=== PATIENT | female | born 1940 | race Caucasian/White ===

== ENCOUNTER 2016-05-20 06:03 | Inpatient (IN) | payer MEDICARE ==
[~2016-05-20 06:03] MED LIST: ceFAZolin SODIUM 1 GM VIAL IV PRN
[2016-05-20] MEDS: RINGERS SOLUTION,LACTATED 1,000 ML IV PRN ×2 (07:06→07:40)
[2016-05-20] MEDS ORDERED: RINGERS SOLUTION,LACTATED 1,000 ML IV ONE ×2 (08:35→09:50)
[2016-05-20] MEDS: ROPIVACAINE HCL/PF 100 MG, EPINEPHrine 0.2 MG, KETOROLAC TROMETHAMINE 30 MG in NORMAL S... IJ PRN ×2 (08:41→09:20)
[2016-05-20] MEDS: TRANEXAMIC ACID 1,000 MG in NORMAL SALINE 100 ML IV PRN ×2 (08:41→09:15)
[2016-05-20] MEDS ORDERED: ACETAMINOPHEN 500 MG TABLET PO PRN (10:18)
[2016-05-20] MEDS ORDERED: MAGNESIUM HYDROXIDE 30 ML UDC PO PRN (10:18)
[2016-05-20] MEDS ORDERED: HYDROmorphone HCL 1 MG/ML DISP.SYRIN IV PRN (10:18)
[2016-05-20] MEDS ORDERED: RINGERS SOLUTION,LACTATED 1,000 ML IV PRN (10:18)
[2016-05-20] MEDS ORDERED: PROMETHAZINE HCL 5 MG in DEXTROSE 5 % IN WATER 50 ML IV PRN ×2 (10:18)
[2016-05-20] MEDS ORDERED: MAG HYDROX/ALUMINUM HYD/SIMETH 30 ML UDC PO PRN (10:18)
[2016-05-20] MEDS ORDERED: diphenhydrAMINE HCL 50 MG/ML VIAL IV PRN (10:18)
[2016-05-20] MEDS ORDERED: ZOLPIDEM TARTRATE 5 MG TABLET PO PRN (10:18)
--- NOTE | 2016-05-20 10:26 | OR ---
Operative Report - Dictated Report Narrative: Date: 05/20/2016 Preoperative diagnosis: Right Knee degenerative joint disease. Postoperative diagnosis: Right Knee degenerative joint disease. Procedure: Right Total knee arthroplasty (22 modifier due to morbid obesity, significant deformity requiring additional surgical time and assistance). Surgeon: Rajan Schofield M.D. Producer Arborist Manager: Efren Byrd PA-C Anesthesia: Spinal with regional block and local periarticular joint injection. Complications: None Specimens: Bone for disposal. Estimated blood loss: 100 mL Tourniquet time: 110 Minutes at 350 millimeters of mercury. Retained implants: Depuy Attune size 6 right lugged cemented posterior stabilized femoral component. Size 5 fixed-bearing cemented tibial platform. 6 by 16 millimeter posterior stabilized cross-linked tibial insert. 38 millimeter medialized patella button. Indications: Mrs. Alegria is a 75-year-old female who had noted varus knee arthrosis. This patient was followed in my clinic for period of time with significant complaints of right knee pain consistent with arthritic changes. They had failed conservative measures including, but not limited to, activity modification, passage of time, medications, and other conservative measures. Patient wished to proceed with surgical treatment. The risks, benefits, and alternatives were discussed in clinic. The risks of , blood clots, bleeding, infection, nerve/tendon blood vessel/ injury, malposition of components, intraoperative fracture, postoperative limited range of motion, persistent pain, failure of components, and need for additional procedures. Patient wished to proceed consent was obtained after answering all questions. Procedure: After marking the correct extremity on the floor, the patient was taken to the operating room. A timeout was performed. IV antibiotics consisting of Ancef were administered prior to the procedure. A regional followed by spinal anesthetic was induced by anesthesia on the operative table with all bony prominences well-padded. Contreras catheter was placed, and a bump was placed under the operative side buttock. SCDs and DIANNA hose were utilized on the nonoperative leg. A well-padded tourniquet was applied to the operative thigh. The operative leg was then pre-scrubbed with alcoho,l prepped, and draped in a standard sterile fashion. After exsanguinating the extremity with an Esmarch bandage, the tourniquet was inflated. After marking out the anterior knee for standard incision centered over the patella, the skin was incised and dissected down to the joint retinaculum. The joint retinaculum was marked out as well as the horizontal axis of the patella, and a standard medial parapatellar arthrotomy was then made. The most proximal aspect of the quadriceps tendon and the patella tendon insertion were protected from release. A partial synovectomy was performed as well as a resection of the infrapatellar fat pad. The distal femoral fat pad proximal to the trochlea was also resected using cautery. The soft tissues were elevated off the medial aspect of the proximal tibia using a Payton elevator ensuring that we did not transect the medial collateral ligament. Upon initial evaluation range of motion was approximately 0 degrees to 100 degrees of flexion. There were signs of advanced arthrosis in the medial, patellofemoral, and lateral joint spaces. There was notable collapse of the medial femoral condyle and significant anterior medial tibial plateau depression. There were large marginal osteophytes which were removed with a rongeur. The knee was hyperflexed and the patella was tucked laterally. Protecting the surrounding soft tissues with Homans, an entry drill was placed down the femoral canal using Whitesides line for guidance into the entry point. The intramedullary femoral alignment sita was utilized in order to cut the distal femur in 5 degrees of valgus resecting 10 millimeters of bone. Next the distal femur was sized to a size 6. A posterior referencing guide was utilized to place the distal femoral cutting block in 3 degrees of external rotation. This was pinned into place. The rotation was confirmed both visually and based on anatomic landmarks. The 4 in 1 cutting jig of the appropriate size was utilized in order to make all bony cuts. The angle wing was used to ensure no notching. Retractors were utilized in order to protect surrounding soft tissues. This cut did not result in any excessive notching. We then cut the box centered over the distal femur. This allowed for resection of the anterior and posterior cruciate ligaments. I then turned my attention to the preparation of the tibia. Using an extra medullary tibial alignment sita, 1 millimeter of bone was resected off the medial articular surface. This was made perpendicular to the mechanical axis of the joint with the alignment sita centered over the ankle mortise. The alignment sita was checked and was noted to be parallel to the mechanical axis, centered over the medial one third of the tibial tubercle, paralleling the anterior surface of the tibia. We then turned our attention to the remaining meniscus and soft tissues. These were removed while protecting the surrounding ligaments and soft tissues. The marginal osteophytes off the anterior, posterior, medial, lateral aspects of the femur and tibia were removed. The tibia was sized out to a size 5. Next the tibia was drilled and punched in an externally rotated position. Next the trial femur and a series of tibial inserts were utilized in order to allow for full extension and maximal flexion. It was found that a 16 millimeter insert gave the best range of motion and stability at multiple flexion points as well as at full extension there was less than 2 mm of gapping both medially and laterally. There is minimal anterior translation with the knee at 90 degrees of flexion and no signs of being able to dislocate the knee. The patella was then prepared. The initial thickness was 22 millimeters. This was reamed down to 13 millimeters parallel to the anterior surface of the patella. It was sized out to a size 38 medialized patella button. This was then drilled and trialed. Without any medial restraint the patella tracked appropriately and did not sublux or dislocate. At this point, it was felt these were the appropriate sized implants, and all trials were removed. The standard periarticular joint injection consisting of ropivacaine, Toradol, and epinephrine were injected into the periarticular joint tissues. The bony surfaces were thoroughly irrigated with a pulsatile- suction saline irrigation device. A bone plug from the prior resected anterior chamfer cut was placed into the drill hole at the distal femur. The bony surfaces were then dried in preparation for placement of the implants. The cement was vacuum mixed per the dinkey operator slate's instructions. The cement was placed on the dry bony surfaces and posterior aspect of the implants. The implants were impacted into place, removing all extruded cement. At this point anesthesia administered tranexamic acid per protocol intravenously. The knee was placed in extension with axial loading with the trial insert while the cement cured. Once the cement cured, all remaining extruded cement was removed. The knee was placed through a range of motion with the trial insert to ensure appropriate range of motion and stability. Final range of motion was approximately 0 to 110 degrees with the posterior knee soft tissues blocking any additional flexion. The knee was again thoroughly irrigated with pulsatile saline lavage. The final polyethylene insert was then impacted into place ensuring no retained soft tissues. The remaining periarticular joint injection was injected. A medium Hemovac drain was placed exiting superior laterally. The knee was then placed over a triangle and the arthrotomy was closed with interrupted #1 Vicryl after thoroughly irrigating the joint. The deep and subcutaneous tissues were closed with interrupted oh and 3-0 Vicryl respectively. Skin was closed with a running subcutaneous 3-0 Monocryl and elizabeth. Xeroform, 4 x 4's, ABD, Sof-Rol, and a full leg Cam wrap were applied. All sponge, needle, blade, and instrument counts were correct prior to closing the wounds. Postoperative condition: The patient was awoken and transferred to the postanesthesia care unit in stable condition. Plan is to be admitted to the inpatient medical/surgical floor postoperatively for 24 hours of IV antibiotics , physical therapy, occupational therapy, and medical comanagement. Patient will be weightbearing as tolerated with range of motion as tolerated. DVT prophylaxis will be with SCDs, DIANNA hose, and pharmacological anticoagulation. Anticipated hospital stay is approximately 2-4 days.
[2016-05-20] MEDS: oxyCODONE HCL/ACETAMINOPHEN 1 TAB TABLET PO PRN ×2 (13:28→19:32)
[2016-05-20] MEDS: ceFAZolin SODIUM 1 GM in DEXTROSE 5 % IN WATER 100 ML IV SCH ×4 (14:19→19:03)
[2016-05-20] MEDS ORDERED: MORPHINE SULFATE 15 MG TABLET.SA PO ONE (19:31)
[2016-05-20] MEDS: SENNOSIDES/DOCUSATE SODIUM 1 TAB TABLET PO SCH (20:35)
[2016-05-20] MEDS: TRIAMCINOLONE ACETONIDE 15 APPL TUBE TP SCH (20:35)
[2016-05-20] MEDS: MORPHINE SULFATE 15 MG TABLET.SA PO SCH (20:35)
[2016-05-20] MEDS: ONDANSETRON HCL/PF 2 MG/ML VIAL IV PRN (20:35)
[2016-05-20] MEDS: LISINOPRIL 20 MG TABLET PO SCH (20:36)
[2016-05-20] MEDS: SIMVASTATIN 20 MG TABLET PO SCH (20:36)
[2016-05-20] MEDS: INSULIN GLARGINE,HUM.REC.ANLOG 100 UNITS/ML VIAL SC SCH (20:37)
[2016-05-21] MEDS: ceFAZolin SODIUM 1 GM in DEXTROSE 5 % IN WATER 100 ML IV SCH ×2 (01:03)
[2016-05-21] MEDS: oxyCODONE HCL/ACETAMINOPHEN 1 TAB TABLET PO PRN ×3 (04:49→18:52)
[2016-05-21 05:25] LABS: Hematocrit 26.2 % (37.0-47.0); Hemoglobin 8.1 gm/dL (12.5-16.0); Mean Cell Volume 84.2 fl (78-100); Mean Corpuscular Hgb Conc 30.9 g/dl (32-36); Mean Platelet Volume 10.1 fl (6.0-9.5); Platelet Count 174 K/mm3 (150-450); Red Blood Count 3.11 M/mm3 (4.2-5.4); Red Cell Distribution Width 14.9 % (11.5-14.0); White Blood Count 6.7 K/mm3 (4.0-10.5)
[2016-05-21 05:51] LABS: Anion Gap 11.9 mmol/L (6.8-13.8); BUN/Creatinine Ratio 29.9 (9.0-21.6); Calcium * 8.6 mg/dL (7.9-10.9); Carbon Dioxide 30.6 mmol/L (24-32.6); Estimated Creat Clear 59.1; Potassium 4.5 mmol/L (3.4-4.6)
[2016-05-21] MEDS: glipiZIDE 5 MG TABLET PO SCH (07:08)
--- NOTE | 2016-05-21 08:03 | PN ---
Subjective - Date and Time Seen Date: 05/21/16 Time: 07:52 Subjective Narrative: Subjective: Reports no concerns. She is sitting upright in bed eating breakfast. Pain is well-controlled. Voiding without any complications. Tolerating by mouth intake. Denies any nausea or vomiting. Denies calf pain. Slept well. Physical exam: Alert and oriented to person, place and time Right lower Extremity: Palpable dorsalis pedis pulse. Sensation grossly intact to light touch. Dressings clean and dry. Able to flex and extend ankle and toes. No excessive drainage. Calf and thigh are soft and nontender. Assessment: Postop day 1 status post right total knee arthroplasty. Plan: Continue with physical and occupational therapy weightbearing as tolerated. Continue with anticoagulation. 24 hours postoperative prophylactic antibiotics. Pain control with goal to rely on oral medications. Continue bowel regimen. Will need 6 weeks with walker or assitive device to protect joint while ambulating during the recovery process. Discharge planning. Discontinue drain and Contreras catheter. Repeat labs in a.m. her hemoglobin is 8.1 we will monitor for now but she may need blood tomorrow. Objective - Vitals Vitals: Last Vital Signs Temp 37.0 C 05/21/16 06:27 Pulse 72 05/21/16 06:27 Resp 20 05/21/16 06:27 BP 108/41 05/21/16 06:27 Pulse Ox 93 05/21/16 06:27 - Abnormal Lab Findings Abnormal Lab Findings: Abnormal Lab Results 05/21/16 05/21/16 Range/Units 05:23 05:23 RBC 3.11 L (4.2-5.4) M/mm3 Hgb 8.1 L (12.5-16.0) gm/dL Hct 26.2 L (37.0-47.0) % MCH 26.0 L (27-31) pg MCHC 30.9 L (32-36) g/dl RDW 14.9 H (11.5-14.0) % MPV 10.1 H (6.0-9.5) fl BUN/Creatinine Ratio 29.9 H (9.0-21.6) Cauti Physician Documentation - Urinary Catheter Management Urethral (Contreras) Date of Insertion: 05/20/16 Assessment/Plan - Problems/Diagnosis (1) S/P total knee arthroplasty Problem: Acute Qualifiers: Laterality: right Qualified Code(s): Z96.651 - Presence of right artificial knee joint (2) Acute blood loss anemia Problem: Acute (3) Venous (peripheral) insufficiency Problem: Chronic (4) Hypertension Problem: Chronic (5) Hyperlipemia Problem: Chronic (6) Diabetes mellitus type 2 in obese Problem: Chronic (7) Stress incontinence Problem: Chronic
[2016-05-21] MEDS: ENOXAPARIN SODIUM 40 MG/0.4 ML SYRG SC SCH (09:17)
[2016-05-21] MEDS: ONDANSETRON HCL/PF 2 MG/ML VIAL IV PRN ×2 (09:20→14:13)
[2016-05-21] MEDS: MORPHINE SULFATE 15 MG TABLET.SA PO SCH ×2 (09:59→22:02)
[2016-05-21] MEDS: OMEGA-3 FATTY ACIDS 1 CAP CAPSULE PO SCH (09:59)
[2016-05-21] MEDS: ASCORBIC ACID 500 MG TABLET PO SCH (09:59)
[2016-05-21] MEDS: TRIAMCINOLONE ACETONIDE 15 APPL TUBE TP SCH ×2 (09:59→21:54)
[2016-05-21] MEDS: CALCIUM CARBONATE/VITAMIN D3 1 TAB TABLET PO SCH (09:59)
[2016-05-21] MEDS: MULTIVITAMINS 1 CAP CAPSULE PO SCH (09:59)
--- NOTE | 2016-05-21 12:30 | PN ---
Subjective - Date and Time Seen Date: 05/21/16 Time: 12:28 Subjective Narrative: POD # 1. afebrile. Objective - Review of Systems Generalized/Overall Review: Denies: Chills, Fever EENTM: Reports: No Symptoms Reported Respiratory: Denies: Cough, Shortness of Breath Cardiac: Denies: Chest Pain, Palpitations Abdominal: Denies: Nausea, Vomiting Genitourinary Symptoms: Denies: Urgency, Frequency Musculoskeletal Complaints: Reports: Joint Pain - tolerable - Vitals Vitals: Last Vital Signs Temp 37.0 C 05/21/16 10:23 Pulse 82 05/21/16 10:23 Resp 20 05/21/16 10:23 BP 151/51 05/21/16 10:23 Pulse Ox 92 05/21/16 10:23 - Abnormal Lab Findings Abnormal Lab Findings: Abnormal Lab Results 05/21/16 05/21/16 Range/Units 05:23 05:23 RBC 3.11 L (4.2-5.4) M/mm3 Hgb 8.1 L (12.5-16.0) gm/dL Hct 26.2 L (37.0-47.0) % MCH 26.0 L (27-31) pg MCHC 30.9 L (32-36) g/dl RDW 14.9 H (11.5-14.0) % MPV 10.1 H (6.0-9.5) fl BUN/Creatinine Ratio 29.9 H (9.0-21.6) - Exam Constitutional: Present: Alert, Oriented x3, Cooperative ENT Exam: Present: hearing grossly normal Neck: Present: supple Breasts: Present: Exam deferred Respiratory: Present: normal breath sounds, No rales, No wheezing Cardiovascular/Chest: Present: regular rate, rhythm, no JVD, no murmur Abdomen: Present: Normal bowel sounds, soft, nontender, nondistended Extremity: Present: no pedal edema, no calf tenderness Cauti Physician Documentation - Urinary Catheter Management Urethral (Contreras) Date of Insertion: 05/20/16 Date of Removal: 05/21/16 Time of Removal: 09:33 Assessment/Plan - Problems/Diagnosis (1) S/P total knee arthroplasty Problem: Acute Qualifiers: Laterality: right Qualified Code(s): Z96.651 - Presence of right artificial knee joint Narrative: afebrile T max 37. Continue with PT/OT (2) Acute blood loss anemia Problem: Acute Narrative: will monitor (3) Diabetes mellitus type 2 in obese Problem: Chronic Narrative: FBS 94/BS before lunch 160 (4) Hyperlipemia Problem: Chronic Qualifiers: Hyperlipidemia type: mixed hyperlipidemia Qualified Code(s): E78.2 - Mixed hyperlipidemia Narrative: stable (5) Hypertension Problem: Chronic Narrative: 104-148/49-65. (6) Stress incontinence Problem: Chronic
[2016-05-21] MEDS: LISINOPRIL 20 MG TABLET PO SCH (21:55)
[2016-05-21] MEDS: SENNOSIDES/DOCUSATE SODIUM 1 TAB TABLET PO SCH (21:55)
[2016-05-21] MEDS: SIMVASTATIN 20 MG TABLET PO SCH (21:56)
[2016-05-21] MEDS: INSULIN GLARGINE,HUM.REC.ANLOG 100 UNITS/ML VIAL SC SCH (21:56)
[2016-05-22 05:47] LABS: Hematocrit 24.7 % (37.0-47.0); Mean Cell Volume 83.2 fl (78-100); Mean Corpuscular Hemoglobin 26.3 pg (27-31); Mean Corpuscular Hgb Conc 31.6 g/dl (32-36); Mean Platelet Volume 9.7 fl (6.0-9.5); Platelet Count 172 K/mm3 (150-450); Red Blood Count 2.97 M/mm3 (4.2-5.4); Red Cell Distribution Width 15.1 % (11.5-14.0); White Blood Count 8.5 K/mm3 (4.0-10.5)
[2016-05-22 05:57] LABS: Hemoglobin 7.8 gm/dL (12.5-16.0)
[2016-05-22 06:02] LABS: Anion Gap 9.8 mmol/L (6.8-13.8); BUN/Creatinine Ratio 23.3 (9.0-21.6); Carbon Dioxide 30.6 mmol/L (24-32.6); Estimated Creat Clear 52.9; Potassium 4.4 mmol/L (3.4-4.6)
[2016-05-22] MEDS: glipiZIDE 5 MG TABLET PO SCH (06:59)
[2016-05-22] MEDS: oxyCODONE HCL/ACETAMINOPHEN 1 TAB TABLET PO PRN ×3 (07:00→16:27)
[2016-05-22] MEDS ORDERED: glipiZIDE 5 MG TABLET PO ONE (07:30)
--- NOTE | 2016-05-22 07:55 | PN ---
Subjective - Date and Time Seen Date: 05/22/16 Time: 07:52 Subjective Narrative: Patient eating her breakfast.Has not done the steps yet. denies lightheadedness/ SOB as she says it is hard to move around. Objective - Review of Systems Generalized/Overall Review: Denies: Chills, Fever EENTM: Reports: No Symptoms Reported Respiratory: Denies: Cough, Shortness of Breath Cardiac: Denies: Chest Pain, Palpitations Abdominal: Denies: Nausea, Vomiting Genitourinary Symptoms: Denies: Urgency, Frequency Musculoskeletal Complaints: Reports: Joint Pain - Vitals Vitals: Last Vital Signs Temp 36.9 C 05/22/16 06:55 Pulse 88 05/22/16 06:55 Resp 18 05/22/16 06:55 BP 126/50 05/22/16 06:55 Pulse Ox 95 05/22/16 06:55 - Abnormal Lab Findings Abnormal Lab Findings: Abnormal Lab Results 05/22/16 05/22/16 Range/Units 05:44 05:44 RBC 2.97 L (4.2-5.4) M/mm3 Hgb 7.8 L* (12.5-16.0) gm/dL Hct 24.7 L (37.0-47.0) % MCH 26.3 L (27-31) pg MCHC 31.6 L (32-36) g/dl RDW 15.1 H (11.5-14.0) % MPV 9.7 H (6.0-9.5) fl BUN/Creatinine Ratio 23.3 H (9.0-21.6) Random Glucose 191 H D (70-110) mg/dL - Exam Constitutional: Present: Alert, Oriented x3, Cooperative, Obese ENT Exam: Present: hearing grossly normal Neck: Present: supple Breasts: Present: Exam deferred Respiratory: Present: decreased breath sounds, No rales, No wheezing Cardiovascular/Chest: Present: regular rate, rhythm, no JVD, systolic murmur Abdomen: Present: Normal bowel sounds, soft, nontender, nondistended Extremity: Present: no calf tenderness, pedal edema Cauti Physician Documentation - Urinary Catheter Management Urethral (Contreras) Date of Insertion: 05/20/16 Date of Removal: 05/21/16 Time of Removal: 09:33 Assessment/Plan - Problems/Diagnosis (1) S/P total knee arthroplasty Problem: Acute Qualifiers: Laterality: right Qualified Code(s): Z96.651 - Presence of right artificial knee joint Narrative: POD # 2. afebrile. Continue with PT/OT (2) Acute blood loss anemia Problem: Acute Narrative: Hb 7.8. (3) Diabetes mellitus type 2 in obese Problem: Chronic Narrative: joaquin increase her a.m. glipizide and p.m. lantus. (4) Hyperlipemia Problem: Chronic Qualifiers: Hyperlipidemia type: mixed hyperlipidemia Qualified Code(s): E78.2 - Mixed hyperlipidemia (5) Hypertension Problem: Chronic (6) Stress incontinence Problem: Chronic
--- NOTE | 2016-05-22 09:24 | PN ---
Subjective - Date and Time Seen Date: 05/22/16 Time: 09:21 Subjective Narrative: Subjective: Reports feeling light headed and a little dizzy. She is walking in the room w/ PT. Has been able to walk to the bathroom with PT. Pain is well- controlled. Voiding without any complications. Tolerating by mouth intake. Denies calf pain. Slept well. Physical exam: Alert and oriented to person, place and time Right lower Extremity: Sensation grossly intact to light touch. Dressings clean and dry. Able to flex and extend ankle and toes. No excessive drainage. Calf and thigh are soft and nontender. Assessment: Postop day 2 status post right total knee arthroplasty. Plan: Continue with physical and occupational therapy weightbearing as tolerated. Continue with anticoagulation. Anemic and noted symptoms. Will transfuse 2 units PRBC. Pain control with goal to rely on oral medications. Continue bowel regimen. Will need 6 weeks with walker or assitive device to protect joint while ambulating during the recovery process. Repeat labs after transfusion. Objective - Vitals Vitals: Last Vital Signs Temp 36.9 C 05/22/16 06:55 Pulse 88 05/22/16 06:55 Resp 18 05/22/16 06:55 BP 126/50 05/22/16 06:55 Pulse Ox 95 05/22/16 06:55 - Abnormal Lab Findings Abnormal Lab Findings: Abnormal Lab Results 05/22/16 05/22/16 Range/Units 05:44 05:44 RBC 2.97 L (4.2-5.4) M/mm3 Hgb 7.8 L* (12.5-16.0) gm/dL Hct 24.7 L (37.0-47.0) % MCH 26.3 L (27-31) pg MCHC 31.6 L (32-36) g/dl RDW 15.1 H (11.5-14.0) % MPV 9.7 H (6.0-9.5) fl BUN/Creatinine Ratio 23.3 H (9.0-21.6) Random Glucose 191 H D (70-110) mg/dL Cauti Physician Documentation - Urinary Catheter Management Urethral (Contreras) Date of Insertion: 05/20/16 Date of Removal: 05/21/16 Time of Removal: 09:33 Assessment/Plan - Problems/Diagnosis (1) S/P total knee arthroplasty Problem: Acute Qualifiers: Laterality: right Qualified Code(s): Z96.651 - Presence of right artificial knee joint (2) Acute blood loss anemia Problem: Acute (3) Venous (peripheral) insufficiency Problem: Chronic (4) Hypertension Problem: Chronic (5) Hyperlipemia Problem: Chronic Qualifiers: Hyperlipidemia type: mixed hyperlipidemia Qualified Code(s): E78.2 - Mixed hyperlipidemia (6) Diabetes mellitus type 2 in obese Problem: Chronic (7) Stress incontinence Problem: Chronic
[2016-05-22] MEDS: FERROUS SULFATE 325 MG TABLET PO SCH (09:26)
[2016-05-22] MEDS: CALCIUM CARBONATE/VITAMIN D3 1 TAB TABLET PO SCH (09:26)
[2016-05-22] MEDS: OMEGA-3 FATTY ACIDS 1 CAP CAPSULE PO SCH (09:27)
[2016-05-22] MEDS: MULTIVITAMINS 1 CAP CAPSULE PO SCH (09:27)
[2016-05-22] MEDS: TRIAMCINOLONE ACETONIDE 15 APPL TUBE TP SCH ×2 (09:27→21:53)
[2016-05-22] MEDS: ASCORBIC ACID 500 MG TABLET PO SCH (09:28)
[2016-05-22] MEDS: ENOXAPARIN SODIUM 40 MG/0.4 ML SYRG SC SCH (09:28)
[2016-05-22] MEDS: MORPHINE SULFATE 15 MG TABLET.SA PO SCH ×2 (09:28→21:53)
[2016-05-22] MEDS: ONDANSETRON HCL/PF 2 MG/ML VIAL IV PRN ×3 (11:24→21:54)
[2016-05-22 21:51] LABS: Hematocrit 28.3 % (37.0-47.0); Hemoglobin 9.2 gm/dL (12.5-16.0)
[2016-05-22] MEDS: SIMVASTATIN 20 MG TABLET PO SCH (21:53)
[2016-05-22] MEDS: LISINOPRIL 20 MG TABLET PO SCH (21:53)
[2016-05-22] MEDS: SENNOSIDES/DOCUSATE SODIUM 1 TAB TABLET PO SCH (21:54)
[2016-05-22] MEDS: INSULIN GLARGINE,HUM.REC.ANLOG 100 UNITS/ML VIAL SC SCH (21:57)
[2016-05-23] MEDS: oxyCODONE HCL/ACETAMINOPHEN 1 TAB TABLET PO PRN ×2 (04:03→11:07)
[2016-05-23] MEDS: glipiZIDE 5 MG TABLET PO SCH (06:51)
[2016-05-23] MEDS: FERROUS SULFATE 325 MG TABLET PO SCH (08:51)
[2016-05-23] MEDS: TRIAMCINOLONE ACETONIDE 15 APPL TUBE TP SCH ×2 (08:51→20:22)
[2016-05-23] MEDS: ASCORBIC ACID 500 MG TABLET PO SCH (08:51)
[2016-05-23] MEDS: MULTIVITAMINS 1 CAP CAPSULE PO SCH (08:51)
[2016-05-23] MEDS: CALCIUM CARBONATE/VITAMIN D3 1 TAB TABLET PO SCH (08:51)
[2016-05-23] MEDS: OMEGA-3 FATTY ACIDS 1 CAP CAPSULE PO SCH (08:51)
[2016-05-23] MEDS: ENOXAPARIN SODIUM 40 MG/0.4 ML SYRG SC SCH (08:52)
[2016-05-23] MEDS: MORPHINE SULFATE 15 MG TABLET.SA PO SCH ×2 (08:54→20:22)
--- NOTE | 2016-05-23 12:26 | PN ---
Subjective - Date and Time Seen Date: 05/23/16 Time: 12:24 Subjective Narrative: Subjective: Reports feeling better today after getting blood. Less tired and dizzy. She is walking in the room w/ PT. Has not done stairs or walked any long distances yet. She feels she is improving. Pain is well-controlled. Voiding without any complications. Tolerating by mouth intake. Denies calf pain. Slept well. Physical exam: Alert and oriented to person, place and time Right lower Extremity: Sensation grossly intact to light touch. Dressings clean and dry. Exam stable Assessment: Postop day 3 status post right total knee arthroplasty. Plan: Continue with physical and occupational therapy weightbearing as tolerated. Continue with anticoagulation. Responded to 2 units PRBC. Hgb stable. Pain control with goal to rely on oral medications. Continue bowel regimen. Will need 6 weeks with walker or assitive device to protect joint while ambulating during the recovery process. We discussed that we may need to look into inpatient therapy at a nursing facility due to slow progression of mobility. Will look at timing and placement on Wednesday. Objective - Vitals Vitals: Last Vital Signs Temp 36.8 C 05/23/16 10:18 Pulse 77 05/23/16 10:18 Resp 20 05/23/16 10:18 BP 124/62 05/23/16 10:18 Pulse Ox 96 05/23/16 10:18 - Abnormal Lab Findings Abnormal Lab Findings: Abnormal Lab Results 05/22/16 05/22/16 Range/Units 09:37 21:47 Hgb 9.2 L (12.5-16.0) gm/dL Hct 28.3 L (37.0-47.0) % Crossmatch See Detail Cauti Physician Documentation - Urinary Catheter Management Urethral (Contreras) Date of Insertion: 05/20/16 Date of Removal: 05/21/16 Time of Removal: 09:33 Assessment/Plan - Problems/Diagnosis (1) S/P total knee arthroplasty Problem: Acute Qualifiers: Laterality: right Qualified Code(s): Z96.651 - Presence of right artificial knee joint (2) Acute blood loss anemia Problem: Acute (3) Venous (peripheral) insufficiency Problem: Chronic (4) Hypertension Problem: Chronic (5) Hyperlipemia Problem: Chronic Qualifiers: Hyperlipidemia type: mixed hyperlipidemia Qualified Code(s): E78.2 - Mixed hyperlipidemia (6) Diabetes mellitus type 2 in obese Problem: Chronic (7) Stress incontinence Problem: Chronic
[2016-05-23] MEDS ORDERED: BISACODYL 5 MG TABLET.DR PO STA (14:51)
[2016-05-23] MEDS: SENNOSIDES/DOCUSATE SODIUM 1 TAB TABLET PO SCH (20:22)
[2016-05-23] MEDS: SIMVASTATIN 20 MG TABLET PO SCH (20:22)
[2016-05-23] MEDS: LISINOPRIL 20 MG TABLET PO SCH (20:22)
[2016-05-23] MEDS: INSULIN GLARGINE,HUM.REC.ANLOG 100 UNITS/ML VIAL SC SCH (20:25)
[2016-05-24] MEDS: glipiZIDE 5 MG TABLET PO SCH (07:03)
[2016-05-24] MEDS: oxyCODONE HCL/ACETAMINOPHEN 1 TAB TABLET PO PRN ×2 (08:54→19:23)
[2016-05-24] MEDS: FERROUS SULFATE 325 MG TABLET PO SCH (08:55)
[2016-05-24] MEDS: CALCIUM CARBONATE/VITAMIN D3 1 TAB TABLET PO SCH (08:55)
[2016-05-24] MEDS: TRIAMCINOLONE ACETONIDE 15 APPL TUBE TP SCH ×2 (08:56→21:50)
[2016-05-24] MEDS: MULTIVITAMINS 1 CAP CAPSULE PO SCH (08:58)
[2016-05-24] MEDS: OMEGA-3 FATTY ACIDS 1 CAP CAPSULE PO SCH (08:58)
[2016-05-24] MEDS: MORPHINE SULFATE 15 MG TABLET.SA PO SCH ×2 (08:58→21:57)
[2016-05-24] MEDS: ENOXAPARIN SODIUM 40 MG/0.4 ML SYRG SC SCH (08:58)
[2016-05-24] MEDS: ASCORBIC ACID 500 MG TABLET PO SCH (08:58)
--- NOTE | 2016-05-24 09:53 | PN ---
Subjective - Date and Time Seen Date: 05/23/16 Time: 10:00 Subjective Narrative: patient doing fairly. well. pain under control. walked in the room. Objective - Review of Systems Generalized/Overall Review: Denies: Chills, Fever Respiratory: Denies: Cough, Shortness of Breath Cardiac: Denies: Chest Pain, Edema Abdominal: Reports: Constipation. Denies: Nausea, Vomiting - Vitals Vitals: vital signs 05/23/16 07:46 Temperature 36.8 C Pulse Rate 77 Respiratory 18 Rate Blood Pressure 119/54 O2 Sat by Pulse 93 Oximetry Oxygen Delivery Room Air Method - Exam Constitutional: Present: Alert, Oriented x3, Cooperative, No distress, Elderly, Obese Neck: Present: supple, trachea midline Respiratory: Present: lungs clear, normal breath sounds, no accessory muscle use Cardiovascular/Chest: Present: regular rate, rhythm. Absent: tachycardia Abdomen: Present: Normal bowel sounds, soft, nontender, obese Extremity: Present: normal inspection, no pedal edema Cauti Physician Documentation - Urinary Catheter Management Urethral (Contreras) Date of Insertion: 05/20/16 Date of Removal: 05/21/16 Time of Removal: 09:33 Assessment/Plan Plan Narrative: 1. RT TKA: POD#2 . Doing well. Ambulated from the room. Pain control/DVT prophylaxis per Dr. Schofield. 2. Acute blood loss: Patient hemodynamically stable w/o sob, CHF, edema. 3. Hypertension: Chronic and stable. 4. Diabetes mellitus II in obese: Chronic; continue Lantus and hypoglycemic agents. 5. Hyperlipidemia: Continue simvastatin.
--- NOTE | 2016-05-24 14:33 | PN ---
Subjective - Date and Time Seen Date: 05/24/16 Time: 14:28 Subjective Narrative: Patient ambulated better as she took pain meds 30-45 minutes prior to walking. Denies any chest pain/shortness of breath had BM today. Anticipating discharge to [facility] on 05/25/2016. Needs to work with PT about steps. Objective - Review of Systems Respiratory: Denies: Cough, Shortness of Breath Cardiac: Denies: Chest Pain, Edema Abdominal: Denies: Nausea, Vomiting - Vitals Vitals: Vital Signs Temp 36.6 C 05/24/16 11:00 Pulse 84 05/24/16 11:00 Resp 18 05/24/16 11:00 BP 146/62 05/24/16 11:00 Pulse Ox 96 05/24/16 11:00 - Exam Constitutional: Present: Alert, Oriented x3, Cooperative, No distress, Elderly, Obese Respiratory: Present: lungs clear, normal breath sounds, no respiratory distress. Absent: no accessory muscle use Cardiovascular/Chest: Present: regular rate, rhythm. Absent: no murmur, tachycardia Abdomen: Present: Normal bowel sounds, soft, nontender, obese Extremity: Present: non-tender. Absent: inflammation Skin Exam: Present: normal color, warm/dry Cauti Physician Documentation - Urinary Catheter Management Urethral (Contreras) Date of Insertion: 05/20/16 Date of Removal: 05/21/16 Time of Removal: 09:33 Assessment/Plan Plan Narrative: . RT TKA: POD#4. Doing well. pain under control. Pain control/DVT prophylaxis per Dr. Schofield. 2. Acute blood loss: Patient hemodynamically stable w/o CHF, sob, edema. 3. Hypertension: Chronic and stable on lisinopril 20 mg PO HS. 4. Diabetes mellitus II in obese: Chronic; continue Lantus and hypoglycemic agents. 5. Hyperlipidemia: Continue simvastatin.
--- NOTE | 2016-05-24 16:34 | PN ---
Subjective - Date and Time Seen Date: 05/24/16 Time: 16:33 Subjective Narrative: Subjective: Reports feeling fine. She is walking do the door but not beyond w / PT. Has not done stairs or walked any long distances yet. She feels she is improving. Pain is well-controlled. Tolerating by mouth intake. D Physical exam: Alert and oriented to person, place and time Right lower Extremity: Sensation grossly intact to light touch. Dressings clean and dry. Exam stable Assessment: Postop day 4 status post right total knee arthroplasty. Plan: Continue with physical and occupational therapy weightbearing as tolerated. Continue with anticoagulation. Will need 6 weeks with walker or assitive device to protect joint while ambulating during the recovery process. Will look at placement on Wednesday. Objective - Vitals Vitals: Last Vital Signs Temp 37.0 C 05/24/16 15:00 Pulse 91 05/24/16 15:00 Resp 16 05/24/16 15:00 BP 179/62 05/24/16 15:00 Pulse Ox 95 05/24/16 15:00 Cauti Physician Documentation - Urinary Catheter Management Urethral (Contreras) Date of Insertion: 05/20/16 Date of Removal: 05/21/16 Time of Removal: 09:33 Assessment/Plan - Problems/Diagnosis (1) S/P total knee arthroplasty Problem: Acute Qualifiers: Laterality: right Qualified Code(s): Z96.651 - Presence of right artificial knee joint (2) Acute blood loss anemia Problem: Acute (3) Venous (peripheral) insufficiency Problem: Chronic (4) Hypertension Problem: Chronic (5) Hyperlipemia Problem: Chronic Qualifiers: Hyperlipidemia type: mixed hyperlipidemia Qualified Code(s): E78.2 - Mixed hyperlipidemia (6) Diabetes mellitus type 2 in obese Problem: Chronic (7) Stress incontinence Problem: Chronic
[2016-05-24] MEDS: INSULIN GLARGINE,HUM.REC.ANLOG 100 UNITS/ML VIAL SC SCH (21:55)
[2016-05-24] MEDS: SENNOSIDES/DOCUSATE SODIUM 1 TAB TABLET PO SCH (21:57)
[2016-05-24] MEDS: LISINOPRIL 20 MG TABLET PO SCH (21:57)
[2016-05-24] MEDS: SIMVASTATIN 20 MG TABLET PO SCH (21:59)
[2016-05-25] MEDS: glipiZIDE 5 MG TABLET PO SCH (07:26)
[2016-05-25] MEDS ORDERED: INSULIN GLARGINE,HUM.REC.ANLOG 100 UNITS/ML VIAL SC SCH (07:53)
--- NOTE | 2016-05-25 07:53 | PN ---
Subjective - Date and Time Seen Date: 05/25/16 Time: 07:49 Subjective Narrative: Patient working with PT/OT. likely d/c tody to NH for more PT/OT before going home. Objective - Review of Systems Generalized/Overall Review: Denies: Chills, Fever EENTM: Reports: No Symptoms Reported Respiratory: Denies: Cough, Shortness of Breath Cardiac: Denies: Chest Pain, Edema, Palpitations Abdominal: Denies: Nausea, Vomiting Genitourinary Symptoms: Denies: Urgency, Frequency Musculoskeletal Complaints: Reports: Joint Pain - Vitals Vitals: Last Vital Signs Temp 36.7 C 05/25/16 06:49 Pulse 74 05/25/16 06:49 Resp 20 05/25/16 06:49 BP 155/55 05/25/16 06:49 Pulse Ox 95 05/25/16 06:49 - Exam Constitutional: Present: Alert, Oriented x3, Cooperative ENT Exam: Present: hearing grossly normal Neck: Present: supple Breasts: Present: Exam deferred Respiratory: Present: normal breath sounds, No rales, No wheezing Cardiovascular/Chest: Present: regular rate, rhythm, no JVD, no murmur Abdomen: Present: Normal bowel sounds, soft, nontender, nondistended Extremity: Present: no pedal edema, no calf tenderness Cauti Physician Documentation - Urinary Catheter Management Urethral (Contreras) Date of Insertion: 05/20/16 Date of Removal: 05/21/16 Time of Removal: 09:33 Assessment/Plan - Problems/Diagnosis (1) S/P total knee arthroplasty Problem: Acute Qualifiers: Laterality: right Qualified Code(s): Z96.651 - Presence of right artificial knee joint Narrative: POD # 5. continue with PT/OT. possible d/c to NH today. (2) Acute blood loss anemia Problem: Acute Narrative: stable. s/p BT (3) Diabetes mellitus type 2 in obese Problem: Chronic Narrative: FBS this morning was 74. will decrease her lantus back to 35 untis. (4) Hyperlipemia Problem: Chronic Qualifiers: Hyperlipidemia type: mixed hyperlipidemia Qualified Code(s): E78.2 - Mixed hyperlipidemia (5) Hypertension Problem: Chronic (6) Stress incontinence Problem: Chronic
[2016-05-25] MEDS: TRIAMCINOLONE ACETONIDE 15 APPL TUBE TP SCH (08:35)
[2016-05-25] MEDS: ENOXAPARIN SODIUM 40 MG/0.4 ML SYRG SC SCH (08:35)
[2016-05-25] MEDS: OMEGA-3 FATTY ACIDS 1 CAP CAPSULE PO SCH (08:35)
[2016-05-25] MEDS: FERROUS SULFATE 325 MG TABLET PO SCH (08:36)
[2016-05-25] MEDS: CALCIUM CARBONATE/VITAMIN D3 1 TAB TABLET PO SCH (08:36)
[2016-05-25] MEDS: MULTIVITAMINS 1 CAP CAPSULE PO SCH (08:36)
[2016-05-25] MEDS: MORPHINE SULFATE 15 MG TABLET.SA PO SCH (08:36)
[2016-05-25] MEDS: ASCORBIC ACID 500 MG TABLET PO SCH (08:36)
[2016-05-25 10:24] VITALS: BP 154/57
[2016-05-25] MEDS: oxyCODONE HCL/ACETAMINOPHEN 1 TAB TABLET PO PRN (11:02)
[2016-05-25] MEDS: ONDANSETRON HCL/PF 2 MG/ML VIAL IV PRN (11:05)
--- NOTE | 2016-05-25 13:23 | DS ---
(1) S/P total knee arthroplasty Problem: Acute Qualifiers: Laterality: right Qualified Code(s): Z96.651 - Presence of right artificial knee joint (2) Acute blood loss anemia Problem: Acute (3) Venous (peripheral) insufficiency Problem: Chronic (4) Hypertension Problem: Chronic (5) Hyperlipemia Problem: Chronic Qualifiers: Hyperlipidemia type: mixed hyperlipidemia Qualified Code(s): E78.2 - Mixed hyperlipidemia (6) Diabetes mellitus type 2 in obese Problem: Chronic (7) Stress incontinence Problem: Chronic Description of Stay: Mrs. Strong was admitted to the floor after undergoing right total knee arthroplasty. Tolerated this well. Was admitted to the floor postoperatively for 24 hours of IV antibiotics, pain control, medical comanagement, and occupational and physical therapy. OT and PT were consulted to assist with activities of daily living and ambulation. Was made weightbearing as tolerated with range of motion as tolerated. Pain was initially controlled with IV regimen. This was transitioned to oral once tolerating a by mouth intake. Was resumed on home diet and medications. Had a Contreras catheter inserted and the operating room which was discontinued on postoperative day 1. A drain was placed intraoperatively into the knee which was discontinued on postoperative day 1. Lovenox SCD and DIANNA hose were utilized for DVT prophylaxis. Vital signs remained stable to the hospital course. She was noted to have some postoperative anemia secondary to acute blood loss and she was given 2 units of packed red blood cells. Serial labs were obtained which showed a final hemoglobin of 9.2 grams. BMP was reviewed and was stable. Physical examination throughout the hospital course showed an extremity that had sensation that was intact to light touch, palpable pulses, a benign wound, motor intact to the toes, ankle, and knee. Knee range of motion was approximately 0 degrees to 70 degrees. she was slow to progress with therapy and secondary to her mobility as well as her home needs was felt that she would benefit from ongoing inpatient therapy at a nursing facility. Instructions: Continue with weightbearing as tolerated and range of motion as tolerated. Keep the wound clean and dry. Cover with dry gauze and tape. Change every 2-3 days as needed. Cover wound while showering. Continue with physical therapy. Resume home diet. Report any fever over 101.5 Fahrenheit, uncontrolled pain, increased drainage, foul odor of drainage, new or increased calf pain or shortness of breath, or any other significant complaints. A 325mg dialy aspirin will be started after finishing anticoagulation if not allergic. Continue with DIANNA hose on the operative extremity until instructed otherwise. No driving until instructed otherwise. Follow up in approximately 10-14 days. Procedures Performed: see notes below List Procedures: Right total knee arthroplasty, transfusion 2 units packed red blood cells [facility]charge Disposition: [facility] Disposition: [facility] Condition: Good Discharge Activity: Activity as tolerated, Weight bearing Discharge Diet: Consistent carbs Fpc Therapy: Physicial Therapy, Occupation Therapy Referrals: Farida Dill MD [Primary Care Provider] - Additional Patient Instructions (free text): Follow up Appointment with Ortho on 06-04-16 @ 8040. Prescriptions (Any new or edited meds): Enoxaparin Sodium [Lovenox] 40 mg SC Q24H #5 disp.syrin Ferrous Sulfate 325 mg PO DAILY #30 tablet Morphine Sulfate [Ms Contin] 15 mg PO Q12H #14 tablet.sa Sennosides/Docusate Sodium [Senokot-S] 2 tab PO HS #60 tablet oxyCODONE HCL/ACETAMINOPHEN [Percocet 5 MG/325 MG] 2 tab PO Q4H PRN #90 tablet PRN Reason: Moderate Pain Complete Home Medications List: Complete Home Medication List: Lisinopril [Zestril] 20 mg PO HS 12/16/12 Simvastatin [Zocor] 20 mg PO HS 12/16/12 Calcium Carbonate/Vitamin D3 [Calcium 600-Vit D3 400 Tablet] 1 each PO DAILY 12/16 Fish Oil/Borage/Flax/Om3,6,9#1 [[place] 3-6-9 1,200 mg Softgel] 2,400 mg PO DAILY 04/09/16 Insulin Glargine,Hum.rec.anlog [Lantus Solostar] 35 unit SQ HS 04/09/16 Multivitamins [Multivitamin Natasha] 1 cap PO DAILY 04/09/16 Triamcinolone Acetonide [Kenalog 0.1%] 1 appl TP BID 04/09/16 metFORMIN HCL [Glucophage] 1,000 mg PO BIDWM 04/09/16 Ascorbic Acid [Vitamin C] 500 mg PO DAILY 05/13/16 Naproxen Sodium [Aleve] 220 mg PO BID 05/13/16 Enoxaparin Sodium [Lovenox] 40 mg SC Q24H #5 disp.syrin 05/25/16 Ferrous Sulfate 325 mg PO DAILY #30 tablet 05/25/16 Morphine Sulfate [Ms Contin] 15 mg PO Q12H #14 tablet.sa 05/25/16 Sennosides/Docusate Sodium [Senokot-S] 2 tab PO HS #60 tablet 05/25/16 glipiZIDE [Glucotrol] 7.5 mg PO DAILY@0700 tablet 05/25/16 oxyCODONE HCL/ACETAMINOPHEN [Percocet 5 MG/325 MG] 2 tab PO Q4H PRN #90 tablet 05/25/16
== END 2016-05-25 14:14 | DRG 470 ==
LOC: MS 06:03
PROVIDERS: ADMIT Orthopaedic Surgery; ATTEND Orthopaedic Surgery
PROC: 0SRC0J9 Replacement of Right Knee Joint with Synthetic Substitute, Cemented, Open Approach (ICD-10-PCS; principal; 2016-05-20 08:00)
DX: M17.0 Bilateral primary osteoarthritis of knee (principal); D62 Acute posthemorrhagic anemia; E11.9 Type 2 diabetes mellitus without complications; E78.2 Mixed hyperlipidemia; N39.3 Stress incontinence (female) (male); Z79.82 Long term (current) use of aspirin; Z79.4 Long term (current) use of insulin
CPT/HCPCS: 27447; 36415; 73560; 80048; 85014; 85018; 85027; 86850; 86900; 97110; 97116; 97161; 97166; 97530; 97535; P9016

== ENCOUNTER 2016-07-15 12:29 | Inpatient (IN) | payer MEDICARE ==
[2016-07-15 13:20] LABS: Hematocrit 35.3 % (37.0-47.0); Hemoglobin 11.1 gm/dL (12.5-16.0); Mean Cell Volume 85.9 fl (78-100); Mean Corpuscular Hgb Conc 31.4 g/dl (32-36); Mean Platelet Volume 10.5 fl (6.0-9.5); Neutrophil # 3.7 K/mm3 (1.3-6.0); Neutrophil % 56.8 % (42-75.0); Platelet Count 224 K/mm3 (150-450); Red Blood Count 4.11 M/mm3 (4.2-5.4); Red Cell Distribution Width 15.6 % (11.5-14.0); White Blood Count 6.5 K/mm3 (4.0-10.5)
[2016-07-15 13:23] LABS: Urine Bilirubin Negative (NEGATIVE); Urine Blood 25 /ul (NEGATIVE); Urine Ketone Negative (NEGATIVE); Urine Nitrite Negative (NEGATIVE); Urine Protein Negative (NEGATIVE); Urine Urobilinogen Normal (NORMAL)
[2016-07-15 13:32] LABS: Urine Appearance Clear; Urine Bacteria 1+; Urine Color Yellow; Urine RBC 0-5 /hpf (0-5)
--- OUTSIDE RECORDS SUMMARY | 2016-07-15 13:35 | XMS REPORT | Continuity of Care Document ---
:1940 Author Organization [facility] ([facility]) Address [address] [place] [address] Phone [phone] Care Team Providers Name Role Phone [phone], Need To Check Primary Care Provider Unavailable Source Comments This disclosure is being made pursuant to the Care Everywhere program, applicable federal and state laws, and may not contain all informaitonavailable regarding this patient.[facility] ([facility]) Active Allergies and Adverse Reactions Not on File Current Medications Not on file Active Problems Not on file Social History Tobacco Use Types Packs/Day Years Used Date Never Assessed Plan of Care Health Maintenance Due Date Last Done Comments Hepatitis B Vaccine (1 of 3 - Primary Series) 1940 Tdap Vaccine 09/25/1951 Lipid Disorder Screening 1958 Td Vaccine 1958 Mammogram 1980 Colonoscopy 1990 Zoster Vaccine 2000 Osteoporosis Screening (DXA Bone Density) 2005 Pneumococcal Vaccine (1 of 2 - PCV13) 2005 Influenza Vaccine: Seasonal (#1) 12/02/2015 Results from Last 3 Months Not on file
[2016-07-15 13:39] LABS: INR 1.06 INR (0.90-1.10); Partial Thrombolplastin Time 25.2 Seconds (24-32)
[2016-07-15] MEDS ORDERED: LABETALOL HCL 5 MG/ML VIAL IV ONE ×2 (13:41→13:43)
[2016-07-15 13:48] LABS: Albumin * 3.7 gm/dl (3.4-5.0); Anion Gap 13.7 mmol/L (6.8-13.8); BUN/Creatinine Ratio 27.4 (9.0-21.6); Bilirubin, Total 0.4 mg/dL (0.0-1.1); Ca. Corrected For Albumin 9.3 mg/dL (8.4-10.2); Calcium * 9.4 mg/dL (7.9-10.9); Carbon Dioxide 27.5 mmol/L (24-32.6); Potassium 4.2 mmol/L (3.4-4.6); Total Protein 7.4 gm/dL (6.2-8.2)
[2016-07-15] MEDS ORDERED: CLOPIDOGREL BISULFATE 75 MG TABLET ONE (13:52)
[2016-07-15] MEDS ORDERED: CLOPIDOGREL BISULFATE 75 MG TABLET PO ONE (13:53)
--- OUTSIDE RECORDS SUMMARY | 2016-07-15 14:52 | XMS REPORT | Continuity of Care Document ---
:1940 Author Organization [facility] ([facility]) Address [address] [place] [address] Phone [phone] Care Team Providers Name Role Phone [phone], Need To Check Primary Care Provider Unavailable Source Comments This disclosure is being made pursuant to the Care Everywhere program, applicable federal and state laws, and may not contain all informaitonavailable regarding this patient.[facility] ([facility]) Active Allergies and Adverse Reactions Not [...]
--- NOTE | 2016-07-15 15:01 | ERNOTE ---
Medical Problem HPI - Narrative Date of Service: 07/15/16 - General Chief Complaint: CerebroVascular Accident Time Seen by Provider: 07/15/16 13:06 Source: patient, family, EMS Exam Limitations: no limitations - Immun/Allergies/Home Medications Immunizations: IMMUNIZATION HX Immunizations Up to Date Yes History of Influenza Vaccine Yes Hx Pneumococcal Vaccination No Allergies/Adverse Reactions: Allergies No Known Allergies Allergy (Verified 07/15/16 13:02) Home Medications: HOME MEDICATIONS Lisinopril [Zestril] 20 mg PO HS 12/16/12 [Last Taken 05/19/16] Simvastatin [Zocor] 20 mg PO HS 12/16/12 [Last Taken 05/19/16] Calcium Carbonate/Vitamin D3 [Calcium 600-Vit D3 400 Tablet] 1 each PO DAILY 12/16 [Last Taken 05/19/16] Fish Oil/Borage/Flax/Om3,6,9#1 [[place] 3-6-9 1,200 mg Softgel] 2,400 mg PO DAILY 04/09/16 [Last Taken 05/19/16] Insulin Glargine,Hum.rec.anlog [Lantus Solostar] 33 unit SQ HS 04/09/16 [Last Taken 05/19/16] Multivitamins [Multivitamin Natasha] 1 cap PO DAILY 04/09/16 [Last Taken 05/19/16 ] metFORMIN HCL [Glucophage] 1,000 mg PO BIDWM 04/09/16 [Last Taken 05/19/16] Aspirin [Aspirin EC] 81 mg PO DAILY 07/15/16 [Last Taken Unknown] Cyanocobalamin (Vitamin B-12) [Vitamin B-12] 600 mcg PO DAILY 07/15/16 [Last Taken Unknown] HYDROcodone/ACETAMINOPHEN [[place] 5-325] 1 each PO BID PRN 07/15/16 [Last Taken Unknown] glipiZIDE [Glucotrol] 5 mg PO DAILY@0700 07/15/16 [Last Taken Unknown] - History of Present History Narrative: Brought to ER by ambulance with c/o of possible stroke. Family state pt sounded dysarthric with slurred speech at about 5 am this morning. claims given her BG level was in the 50's, he presumed her symptom was due to hypoglycemia. He gave her some orange juice and she responded well. He did notice however that she seemed incoordinated while attempting to unscrew the cap of a tube with her left hand, while holding it with her right hand. Her son thinks he noticed a slight left facial weakness when he saw her this morning. Timing: intermittent Severity: moderate Review of Systems - Review of Systems EYE: Present: no symptoms reported ENT: Present: no symptoms reported Respiratory: Present: no symptoms reported Cardiology: Present: no symptoms reported Gastrointestinal/Abdominal: Present: no symptoms reported Genitourinary: Present: no symptoms reported Musculoskeletal: Present: no symptoms reported Skin: Present: no symptoms reported Neurological: Present: See HPI Endocrine: Present: no symptoms reported Hematologic/Lymphatic: Present: no symptoms reported Psych: Present: no symptoms reported All Other Systems: All systems neg except as marked - Patient's Past Medical History Patient History - Medical: Diabetes Type 2 Insulin Dependent Patient History - Cardiac/Respiratory: Hypertension, Hyperlipidemia Patient History - Cancer: No Hx of Cancer Patient History - Surgical Procedures: Cataracts, Other Patient History - Other: Immunosuppresive Tx >3mo - Family History Mother Family History - Medical: , Diabetes Type 2 Family History - Cardiac/Respiratory: Myocardial Infarction Father Family History - Medical: Family History - Cardiac/Respiratory: Myocardial Infarction - Social History Living Situations: home Abuse History: No History of abuse Psych History: No pertinent hx Smoking Status: Never smoker Alcohol Use: none Drug Use: none - Immunizations Immunizations Up to Date: Yes Hx Pneumococcal Vaccination: No History of Influenza Vaccine: Yes Physical Exam - Physical Exam General Appearance: Present: wd/wn, alert, no apparent distress Eye Exam: Normal inspection: bilateral, PERRL: bilateral, EOMI: bilateral Ears, Nose, Throat: Present: normal ENT inspection Neck: Present: normal inspection, nontender Respiratory: Present: no respiratory distress, normal breath sounds, no accessory muscle use, chest nontender, lungs clear Cardiovascular/Chest: Present: regular rate, rhythm, no murmur, normal peripheral pulses Gastrointestinal/Abdominal: Present: nontender, nondistended, soft, no organomegaly Extremity Exam: Present: normal inspection, non-tender, normal range of motion, no edema Neurological Exam: Present: alert, oriented, normal mood/affect, normal cerebellar test - normal F-N. , facial droop - Barely perceptible left facial droop; Waxed and waned while in ER. , motor weakness - Left hand cable spooler @ 3/5 compared to 5/5 on right. Skin Exam: Present: normal color, warm/dry ED Progress - Results and Orders Patient's Lab Results:: I have reviewed the patient's lab results. - Vital Signs Patient's Vital Signs:: I have reviewed the patient's vital signs. Vital Signs: Vital Signs 07/15/16 07/15/16 07/15/16 12:35 13:00 13:08 Temperature 37 C Pulse Rate 95 93 87 Respiratory 15 15 16 Rate Blood Pressure 141/81 141/81 O2 Sat by Pulse 96 98 98 Oximetry 07/15/16 07/15/16 07/15/16 13:29 13:46 13:50 Temperature Pulse Rate 82 79 66 Respiratory 21 H 15 Rate Blood Pressure 205/79 209/83 181/66 O2 Sat by Pulse 95 96 Oximetry 07/15/16 07/15/16 14:15 14:38 Temperature Pulse Rate 67 69 Respiratory 15 14 Rate Blood Pressure 167/70 155/56 O2 Sat by Pulse 96 96 Oximetry - EKG EKG: nonspecific ST T wave changes - @ 86 bpm EKG read: Interp. by me - CT/Ultrasound CT/Ultrasound Narrative: No intracranial bleed per radiologist; - Progress/Reassessment Chief Complaint: General Assessment Plan - Plan Plan: Case discussed with Dr. Dill; will admit. Departure - Departure Clinical Impression: Acute UTI (urinary tract infection) CVA (cerebral vascular accident) Qualifiers: CVA mechanism: unspecified Qualified Code(s): I63.9 - Cerebral infarction, unspecified Disposition: [facility] Condition: Fair - Critical Care Total Time (mins): 45
[2016-07-15] MEDS: NORMAL SALINE 1,000 ML IV PRN ×2 (16:43→18:24)
--- NOTE | 2016-07-15 16:46 | HP ---
Chief Complaint - Chief Complaint Date of Service: 07/15/16 Time of Service: 16:25 Chief Complaint: stroke History of Present Illness: Cheyanne Alegria, is a 75-year-old white female, with previous medical history of diabetes mellitus type 2, hypertension, hyperlipidemia, peripheral neuropathy, who are on five this morning woke up and was noticed that she had some slurring of speech. The son-in-law also noticed also some left facial droop later on. They called the ambulance and brought her to the emergency room for possible stroke. CT scan of her head showed an acute to subacute stroke involving the left frontal lobe. Her EKG showed sinus arrhythmia. Her CXR showed hypoinflated lungs . She also had a urinary tract infection in her urinalysis. Her BP in the ER was 203/83 and she was given labetalol 20 mg IV. She was then admitted for further work up and treatment. - Patient's Past Medical History Patient History - Medical: Diabetes Type 2 Insulin Dependent Patient History - Cardiac/Respiratory: Hypertension, Hyperlipidemia Patient History - Cancer: No Hx of Cancer Patient History - Surgical Procedures: Cataracts, D & C, Other Patient History - Other: None - Family History Mother Family History - Medical: Family History - Cardiac/Respiratory: Myocardial Infarction Father Family History - Medical: Family History - Cardiac/Respiratory: Myocardial Infarction - Social History Living Situations: home Abuse History: No History of abuse Psych History: No pertinent hx Smoking Status: Former smoker Have you smoked in the past 12 months: No Do you dip or chew tobacco: No Patient requests Smoking Cessation Consult: No Initiate information on Smoking Cessation: No Alcohol Use: occasionally Drug Use: none - Immunizations Immunizations Up to Date: Yes Hx Pneumococcal Vaccination: No History of Influenza Vaccine: Yes Review Of Systems (GEN) - Review of Systems Generalized/Overall Review: Present: Weakness EENTM: Present: No Symptoms Reported Respiratory: Absent: Cough, Shortness of Breath Cardiac: Absent: Chest Pain, Edema, Palpitations Abdominal: Absent: Nausea, Vomiting Genitourinary: Absent: Urgency Musculoskeletal: Present: Joint Pain Neurological: Present: Weakness Allergies/Adverse Reactions: Allergies Allergy/AdvReac Type Severity Reaction Status Date / Time No Known Allergies Allergy Verified 07/15/16 15:31 Home Medications: HOME MEDICATIONS Lisinopril [Zestril] 20 mg PO DAILY 12/16/12 [Last Taken 05/19/16] Simvastatin [Zocor] 20 mg PO HS 12/16/12 [Last Taken 05/19/16] Calcium Carbonate/Vitamin D3 [Calcium 600-Vit D3 400 Tablet] 1 each PO DAILY 12/16 [Last Taken 05/19/16] Fish Oil/Borage/Flax/Om3,6,9#1 [[place] 3-6-9 1,200 mg Softgel] 2,400 mg PO DAILY 04/09/16 [Last Taken 05/19/16] Insulin Glargine,Hum.rec.anlog [Lantus Solostar] 35 unit SQ HS 04/09/16 [Last Taken 05/19/16] Multivitamins [Multivitamin Natasha] 1 cap PO DAILY 04/09/16 [Last Taken 05/19/16 ] metFORMIN HCL [Glucophage] 1,000 mg PO BIDWM 04/09/16 [Last Taken 05/19/16] Aspirin [Aspirin EC] 81 mg PO DAILY 07/15/16 [Last Taken Unknown] Naproxen Sodium [Aleve] 220 mg PO BID 07/15/16 [Last Taken Unknown] glipiZIDE [Glucotrol] 5 mg PO DAILY@0700 07/15/16 [Last Taken Unknown] Exam - Exam Vital Signs: Vital Signs - Last Taken Temp 36.7 C 07/15/16 15:55 Pulse 71 07/15/16 15:55 Resp 20 07/15/16 15:55 BP 151/47 07/15/16 15:55 Pulse Ox 97 07/15/16 15:55 Constitutional: Present: Alert, Oriented x3, Cooperative ENT Exam: Present: hearing grossly normal Eye Exam: bilateral eye: normal inspection, PERRL, EOMI Neck: Present: supple Breasts: Present: Exam deferred Respiratory: Present: lungs clear, No rales, No wheezing Cardiovascular/Chest: Present: regular rate, rhythm, no JVD, no murmur Abdomen: Present: Normal bowel sounds, soft, nontender, nondistended Extremity: Present: no pedal edema, no calf tenderness Neurologic: Present: other - AAO x 3, shallow left nasolabial fold, weak hand freezer person on the left Diagnostic Studies: Laboratory Results WBC 6.5 K/mm3 (4.0-10.5) 07/15/16 13:15 RBC 4.11 M/mm3 (4.2-5.4) L 07/15/16 13:15 Hgb 11.1 gm/dL (12.5-16.0) L 07/15/16 13:15 Hct 35.3 % (37.0-47.0) L 07/15/16 13:15 MCV 85.9 fl (78-100) 07/15/16 13:15 MCH 27.0 pg (27-31) 07/15/16 13:15 MCHC 31.4 g/dl (32-36) L 07/15/16 13:15 RDW 15.6 % (11.5-14.0) H 07/15/16 13:15 Plt Count 224 K/mm3 (150-450) 07/15/16 13:15 MPV 10.5 fl (6.0-9.5) H 07/15/16 13:15 Immature Gran % (Auto) 0.20 % (0.001-0.429) 07/15/16 13:15 Immature Gran # (Auto) 0.01 K/mm3 (0.000-0.0310) 07/15/16 13:15 Neutrophils % 56.8 % (42-75.0) 07/15/16 13:15 Lymphocytes % 31.3 % (20-51) 07/15/16 13:15 Monocytes % 7.4 % (0.0-9) 07/15/16 13:15 Eosinophils % 3.4 % (0.0-3.0) H 07/15/16 13:15 Basophils % 0.9 % (0.0-1.0) 07/15/16 13:15 Nucleated RBC % 0.0 k/mm3 (0-1) 07/15/16 13:15 Neutrophils # 3.7 K/mm3 (1.3-6.0) 07/15/16 13:15 Lymphocytes # 2.0 k/mm3 (1.5-3.5) 07/15/16 13:15 Monocytes # 0.5 k/mm3 (0.0-1.0) 07/15/16 13:15 Eosinophils # 0.2 k/mm3 (0.0-0.7) 07/15/16 13:15 Absolute Basophils 0.1 k/mm3 (0.0-0.1) 07/15/16 13:15 ESR 20 mm/hr (0-15) H 07/15/16 13:15 PT 11.0 Seconds (9.4-11.4) 07/15/16 13:15 INR (Anticoag Therapy) 1.06 INR (0.90-1.10) 07/15/16 13:15 PTT ([place]) 25.2 Seconds (24-32) 07/15/16 13:15 Sodium 141 mmol/L (132-142) 07/15/16 13:15 Plasma Sodium 142 mmol/L (130-142) 07/15/16 13:15 Potassium 4.2 mmol/L (3.4-4.6) 07/15/16 13:15 Chloride 104 mmol/L (97-106) 07/15/16 13:15 Carbon Dioxide 27.5 mmol/L (24-32.6) 07/15/16 13:15 Anion Gap 13.7 mmol/L (6.8-13.8) 07/15/16 13:15 BUN 20 mg/dL (3-23) 07/15/16 13:15 Creatinine 0.73 mg/dL (0.4-1.4) 07/15/16 13:15 Est GFR (Non-Af Amer) 83 mL/min (60-130) D 07/15/16 13:15 BUN/Creatinine Ratio 27.4 (9.0-21.6) H 07/15/16 13:15 Random Glucose 161 mg/dL (70-110) H 07/15/16 13:15 Calcium 9.4 mg/dL (7.9-10.9) 07/15/16 13:15 Calcium Adj for Albumin 9.3 mg/dL (8.4-10.2) 07/15/16 13:15 Total Bilirubin 0.4 mg/dL (0.0-1.1) 07/15/16 13:15 AST 16 U/L (0-48) 07/15/16 13:15 ALT 15 U/L (19-67) L 07/15/16 13:15 Alkaline Phosphatase 77 U/L (50-170) 07/15/16 13:15 C-Reactive Prot, Quant Less than 0.2 mg/dL (0.0-0.9) 07/15/16 13:15 Total Protein 7.4 gm/dL (6.2-8.2) 07/15/16 13:15 Albumin 3.7 gm/dl (3.4-5.0) 07/15/16 13:15 Urine Color Yellow 07/15/16 13:11 Urine Appearance Clear 07/15/16 13:11 Urine pH 7.0 pH (5.0-7.0) 07/15/16 13:11 Ur Specific [place] 1.010 SP.GR. (1.005-1.010) 07/15/16 13:11 Urine Protein Negative mg/dL (NEGATIVE) 07/15/16 13:11 Urine Glucose (UA) Negative mg/dL (NEGATIVE) 07/15/16 13:11 Urine Ketones Negative mg/dL (NEGATIVE) 07/15/16 13:11 Urine Blood 25 /ul (NEGATIVE) H 07/15/16 13:11 Urine Nitrate Negative (NEGATIVE) 07/15/16 13:11 Urine Bilirubin Negative mg/dl (NEGATIVE) 07/15/16 13:11 Urine Urobilinogen Normal EU/dl (NORMAL) 07/15/16 13:11 Ur Leukocyte Esterase 75 /ul (NEGATIVE) H 07/15/16 13:11 Urine RBC 0-5 /hpf (0-5) 07/15/16 13:11 Urine WBC 5-10 /hpf (0-5) H 07/15/16 13:11 Ur Epithelial Cells 0-5 /hpf (0-5) 07/15/16 13:11 Urine Bacteria 1+ (NONE) H 07/15/16 13:11 Urine Culture Comments Culture to follow 07/15/16 13:11 Assessment/Plan - Assessment/Plan (1) CVA (cerebral vascular accident) Assessment: nonhemorrahgic, thrombotic vs embolic. will get CUS, Echo with bubble study and do MRI in the morning. Continue with ASA and add Plavix. Get P/OT referral. aspiration precaution. will get neurology consult . Problem: Acute Qualifiers: CVA mechanism: unspecified (2) Acute UTI (urinary tract infection) Assessment: continue with IV antibiotics, will await for C & S. Problem: Acute (3) Diabetes mellitus type 2 in obese Problem: Chronic (4) Hyperlipemia Problem: Chronic Qualifiers:
[2016-07-15] MEDS: INSULIN LISPRO 100 UNITS/ML VIAL SC SCH (17:42)
[2016-07-15] MEDS ORDERED: NORMAL SALINE 200 ML IV ONE (17:50)
[2016-07-15] MEDS ORDERED: SIMVASTATIN 20 MG TABLET PO SCH (21:00)
[2016-07-15] MEDS ORDERED: INSULIN GLARGINE,HUM.REC.ANLOG 100 UNITS/ML VIAL SC SCH (21:00)
[2016-07-16] MEDS: NORMAL SALINE 1,000 ML IV PRN (02:10)
[2016-07-16] MEDS ORDERED: DEXTROSE 5 % IN WATER 1,000 ML IV PRN (07:36)
[2016-07-16] MEDS: INSULIN LISPRO 100 UNITS/ML VIAL SC SCH ×2 (07:37→11:33)
--- NOTE | 2016-07-16 08:27 | PN ---
Subjective - Date and Time Seen Date: 07/16/16 Time: 08:22 Subjective Narrative: Patient had low BS this morning. Still with weak hand grasp, left hand. Dr. Willis, neurology, saw patient yesterday. Objective - Review of Systems Generalized/Overall Review: Reports: Weakness. Denies: Chills, Fever EENTM: Reports: No Symptoms Reported Respiratory: Denies: Cough, Shortness of Breath Cardiac: Denies: Chest Pain, Edema, Palpitations Abdominal: Denies: Nausea, Vomiting Genitourinary Symptoms: Denies: Urgency, Frequency Musculoskeletal Complaints: Denies: Joint Pain - Vitals Vitals: Last Vital Signs Temp 36.6 C 07/16/16 08:10 Pulse 71 07/16/16 08:10 Resp 18 07/16/16 08:10 BP 170/62 07/16/16 08:10 Pulse Ox 98 07/16/16 08:10 - Exam Constitutional: Present: Alert, Oriented x3, Cooperative ENT Exam: Present: hearing grossly normal Neck: Present: supple Breasts: Present: Exam deferred Respiratory: Present: decreased breath sounds, No rales, No wheezing Cardiovascular/Chest: Present: regular rate, rhythm, no JVD, no murmur Abdomen: Present: Normal bowel sounds, soft, nontender, nondistended Extremity: Present: no pedal edema, no calf tenderness Neurologic: Present: power plant supervisor II-XII nml as tested - except for shallow left nasolabial fols, less obvious today, motor weakness - 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 for PT/OT/specche therapy eval/tx. will try to get neurology's correspondence (2) Acute UTI (urinary tract infection) Problem: Acute (3) Diabetes mellitus type 2 in obese Problem: Chronic Narrative: low BS this orning. (4) Hyperlipemia Problem: Chronic Qualifiers: Hyperlipidemia type: mixed hyperlipidemia Qualified Code(s): E78.2 - Mixed hyperlipidemia (5) Hypertension Problem: Chronic Qualifiers: Hypertension type: essential hypertension Qualified Code(s): I10 - Essential (primary) hypertension Narrative: IVF d/c. Lisinopril restarted and increased.
[2016-07-16] MEDS ORDERED: INSULIN GLARGINE,HUM.REC.ANLOG 100 UNITS/ML VIAL SC SCH (08:28)
[2016-07-16] MEDS ORDERED: ENOXAPARIN SODIUM 40 MG/0.4 ML SYRG SC SCH (08:30)
[2016-07-16] MEDS ORDERED: ASPIRIN 81 MG TABLET.DR PO SCH (09:00)
[2016-07-16] MEDS ORDERED: CLOPIDOGREL BISULFATE 75 MG TABLET PO SCH (09:00)
[2016-07-16] MEDS ORDERED: LISINOPRIL 20 MG TABLET PO SCH (09:00)
[2016-07-16] MEDS ORDERED: CALCIUM CARBONATE/VITAMIN D3 1 TAB TABLET PO SCH (09:00)
[2016-07-16] MEDS ORDERED: LISINOPRIL 40 MG TABLET PO ONE (11:36)
[2016-07-16] MEDS ORDERED: METOPROLOL SUCCINATE 25 MG TABLET.SA PO SCH (14:15)
[2016-07-16] MEDS ORDERED: ONDANSETRON HCL/PF 2 MG/ML VIAL IV PRN (14:17)
[2016-07-16] MEDS ORDERED: METOPROLOL SUCCINATE 25 MG TABLET.SA PO ONE (14:30)
[2016-07-16] MEDS ORDERED: METOPROLOL TARTRATE 1 MG/ML AMPUL IV ONE ×2 (14:49)
[2016-07-16 14:52] VITALS: BP 184/103
--- NOTE | 2016-07-16 15:01 | PN ---
Progess Note - Interim Narrative: 07/16/16 14:59 Patient complained of Nausea, tele showing STEMI, EKG showed NSR with ST elevation in inferior leads., troponin of 0.22. Patient already had ASA and Plavix this mronig and had Lovenox 40 mg SQ for DVT prohylaxis at 9:30 am. Mri showed 2 new acute infarct in RMCA, and subacute infarct on left frontal lobe on an old hemorrhagic infarct. Discussed with Radiologist - he recommends doing a stat CTS . I was able to talk to Dr. Carter, harvester operator event specialist food demonstrator in [facility] and he talked to their road consultant. They are not going to do anything on her as anticoagulation will cause bleeding of her acute stroke. They will just transfer her to the [facility]. Discussed case with and son-in-law, daughter- they will like her transferred to [facility]. 07/17/16 07:05 Continuation: I talked to Dr. Schneider, cardilogist in [facility] and he is accepting the patient to cardiology ICU unit.
--- NOTE | 2016-07-16 15:55 | DS ---
Transfer Discharge Summary - Diagnosis(s)/Problems (1) NSTEMI (non-ST elevated myocardial infarction) Narrative: inferior leads , poor R wave progression- possible anterior injury. troponin of 0.22. Toprol XL started . IV lopressor given. Problem: Acute (2) CVA (cerebral vascular accident) Narrative: CTS showed acute to subacute left frontal infarct. MRI shows acute/subacute/ chronic infarct left frontal lobe, on top of old hemorrhagic stroke, 2 new small acute infarcts in the RMCA territory. Repeat CTS showed interval developement of 7mm hemorrhage , in the left frontal lobe infarct, no mass effect. I will transfer to ICU cardiology- Dr. Schneider is the accepting bench worker hollow handle. Problem: Acute (3) Acute UTI (urinary tract infection) Problem: Acute (4) Diabetes mellitus type 2 in obese Problem: Chronic (5) Hyperlipemia Problem: Chronic - Course Description of Stay: Cheyanne Alegria, is a 75-year-old white female, with previous medical history of diabetes mellitus type 2, hypertension, hyperlipidemia, peripheral neuropathy, who are on five this morning woke up and was noticed that she had some slurring of speech. The son-in-law also noticed also some left facial droop later on. They called the ambulance and brought her to the emergency room for possible stroke. CT scan of her head showed an acute to subacute stroke involving the left frontal lobe. Her EKG showed sinus arrhythmia. Her CXR showed hypoinflated lungs . She also had a urinary tract infection in her urinalysis. Her BP in the ER was 203/83 and she was given labetalol 20 mg IV. She was then admitted for further work up and treatment. She has been taking baby ASA and so Plavix was started. Neurology was consulted and he agreed with the plan. Her MRI this morning shwed 2 new small infarcts in the RMCA and an acute/subacute/ chronic infarct on the on the left frontal lobe on top of a probabale old hemorrhagic stroke. This afternoon , she developed nausea and telemetry showed ST elevation . EKG done showed STEMI, inferior leads with probable anterior injury. Her troponoin was 0.22. Toprol XL was started earlier and IV lopressor was given. She is now being transferred to [facility] ICU cardiology unit. Dr. Schneider is the accepting bench worker hollow handle. - Patient's Past Medical History Procedures Performed: none - Results and Findings Results and Findings: Laboratory Results - last 24 hr 07/16/16 14:25 Troponin I 0.224 H* - Medications Medications: Active Medications Aspirin (Aspirin Enteric Coated) 81 mg PO DAILY [facility] Stop: 08/15/16 09:01 Last Admin: 07/16/16 09:28 Dose: 81 mg Calcium/Vitamin D (Calcarb 600 With Vitamin D) 1 tab PO DAILY [facility] Stop: 08/15/16 09:01 Last Admin: 07/16/16 09:28 Dose: 1 tab Clopidogrel Bisulfate (Plavix) 75 mg PO DAILY [facility] Stop: 08/15/16 09:01 Last Admin: 07/16/16 09:28 Dose: 75 mg Enoxaparin Sodium (Lovenox) 40 mg SC Q24H [facility] Stop: 08/15/16 08:31 Last Admin: 07/16/16 09:37 Dose: 40 mg Ceftriaxone Sodium 1,000 mg/ (Dextrose/Water) 100 mls @ 200 mls/hr IV Q24H [facility] PRN Reason: Protocol Stop: 08/14/16 15:16 Last Admin: 07/15/16 16:42 Dose: 200 mls/hr Dextrose/Water (Dextrose 5%/Water) 1,000 mls @ 50 mls/hr IV .Q20H PRN PRN Reason: HYDRATION Stop: 08/15/16 07:37 Last Admin: 07/16/16 07:30 Dose: 50 mls/hr Insulin Human Lispro (Humalog) 0 - 21 units SC ACINS [facility] PRN Reason: Protocol Stop: 08/14/16 17:01 Last Admin: 07/16/16 11:33 Dose: Not Given Lisinopril (Zestril) 20 mg PO DAILY [facility] Stop: 08/15/16 09:01 Last Admin: 07/16/16 09:28 Dose: 20 mg Metoprolol Succinate (Toprol Xl) 25 mg PO DAILY [facility] Stop: 08/15/16 14:16 Last Admin: 07/16/16 14:26 Dose: Not Given Ondansetron HCl (Zofran) 4 mg IV Q6H PRN PRN Reason: Nausea And Vomiting Stop: 08/15/16 14:18 Last Admin: 07/16/16 14:24 Dose: 4 mg Simvastatin (Zocor) 20 mg PO HS [facility] Stop: 08/14/16 21:01 Last Admin: 07/15/16 20:57 Dose: 20 mg Discontinued Medications Clopidogrel Bisulfate (Plavix) 150 mg PO ONCE ONE Stop: 07/15/16 13:54 Last Admin: 07/15/16 13:54 Dose: 150 mg Sodium Chloride (Sodium Chloride 0.9%) 1,000 mls @ 100 mls/hr IV .Q10H PRN PRN Reason: HYDRATION Stop: 08/14/16 16:24 Last Admin: 07/16/16 02:10 Dose: 100 mls/hr Sodium Chloride (Sodium Chloride 0.9%) 200 mls @ 999 mls/hr IV .Q13M ONE Stop: 07/15/16 18:02 Last Admin: 07/15/16 17:53 Dose: 999 mls/hr Insulin Glargine (Lantus) 35 units SC HS [facility] Stop: 08/14/16 21:01 Last Admin: 07/15/16 20:25 Dose: 35 units Labetalol HCl (Trandate) 20 mg IV ONCE ONE Stop: 07/15/16 13:42 Last Admin: 07/15/16 13:46 Dose: 20 mg Lisinopril (Zestril) 40 mg PO ONCE ONE Stop: 07/16/16 11:37 Last Admin: 07/16/16 12:22 Dose: 40 mg Metoprolol Succinate (Toprol Xl) 25 mg PO ONCE ONE Stop: 07/16/16 14:31 Last Admin: 07/16/16 14:25 Dose: 25 mg Metoprolol Tartrate (Lopressor) 5 mg IV ONCE ONE Stop: 07/16/16 14:50 Last Admin: 07/16/16 14:50 Dose: 5 mg - Disposition Disposition: [facility] Condition: Fair Discharge Date: 07/16/16
--- NOTE | 2016-07-17 14:10 | ECHO ---
This report is available in the EMR
== END 2016-07-16 16:30 | disposition short-term general hospital (02) | DRG 280 ==
LOC: ER 12:29 → MS 14:32 → OBSVTOIN 15:55
PROVIDERS: ADMIT Internal Medicine; ATTEND Internal Medicine
PROC: B246ZZZ Ultrasonography of Right and Left Heart (ICD-10-PCS; principal; 2016-07-15)
DX: I21.4 Non-ST elevation (NSTEMI) myocardial infarction (principal); I63.9 Cerebral infarction, unspecified; N39.0 Urinary tract infection, site not specified; E11.9 Type 2 diabetes mellitus without complications; I10 Essential (primary) hypertension; E78.2 Mixed hyperlipidemia; Z79.4 Long term (current) use of insulin; Z79.82 Long term (current) use of aspirin

== ENCOUNTER 2016-07-23 15:49 | Inpatient (IN) | payer MEDICARE ==
--- OUTSIDE RECORDS SUMMARY | 2016-07-23 17:34 | XMS REPORT | Continuity of Care Document ---
:1940 Author Organization [facility] ([facility]) Address [address] [place] [address] Phone [phone] Care Team Providers Name Role Phone Farida Dill Primary Care Provider [phone] Source Comments This disclosure is being made pursuant to the Care Everywhere program, applicable federal and state laws, and may not contain all informaitonavailable regarding this patient.[facility] ([facility]) Active Allergies and Adverse Reactions No Known Allergies Current Medications Prescription Sig. Disp. Refills Start Date End Date Status metFORMIN 500 mg Take 1,000 mg by Active tablet mouth 2 times daily with meals. aspirin 81 mg Take 81 mg by mouth Active chewable tablet daily. CYANOCOBALAMIN Take 1 tablet by Active (VITAMIN B-12) mouth daily. (VITAMIN B-12 PO) multivitamin tablet Take 1 tablet by Active mouth daily. omega-3 fatty acids Take 2 g by mouth Active 1 gram capsule daily. calcium carbonate Take 650 mg by Active (650 mg Ca) 1625 mg mouth daily. tablet HYDROcodone-acetami Take 1 tablet by Active nophen 5-325 mg per mouth 2 times daily tablet as needed. atorvastatin 40 mg Take 1 tablet (40 30 tablet 0 07/23/2016 Active tablet mg total) by mouth every evening. clopidogrel 75 mg Take 1 tablet (75 30 tablet 0 07/23/2016 Active tablet mg total) by mouth daily. insulin glargine Inject 22 Units 10 mL 11 07/23/2016 Active (LanTUS) 100 subcutaneously at unit/mL injection bedtime. vial NOVOLOG 100 unit/mL Inject 15 Units 10 mL 0 07/23/2016 Active injection vial subcutaneously 3 times daily before meals. Take 15 units with breakfast and lunch, 14 units with dinner lisinopril 2.5 mg Take 1 tablet (2.5 30 tablet 0 07/23/2016 Active tablet mg total) by mouth daily. metoPROLol tartrate Take 0.5 tablets 60 tablet 0 07/23/2016 Active 25 mg tablet (12.5 mg total) by mouth every 12 hours. insulin glargine Inject 33 Units Suspended (LanTUS) 100 subcutaneously at 7 unit/mL injection bedtime. vial glipiZIDE 5 mg Take 5 mg by mouth Suspended tablet daily. 7 lisinopril 20 mg Take 20 mg by mouth Suspended tablet daily. 7 simvastatin 20 mg Take 20 mg by mouth Suspended tablet every evening. 7 naproxen sodium Take 220 mg by Suspended (ALEVE) 220 mg mouth 2 times 7 tablet daily. Active Problems Problem Noted Date Morbid obesity 07/21/2016 PFO (patent foramen ovale) 07/18/2016 Abnormal EKG 07/16/2016 Essential hypertension 07/16/2016 Type 2 diabetes mellitus 07/16/2016 CVA (cerebral vascular accident) 07/16/2016 HLD (hyperlipidemia) 07/16/2016 Resolved Problems Problem Noted Date Resolved Date ST elevation myocardial infarction (STEMI) of 07/16/2016 07/23/2016 inferoposterior wall, initial episode of care Most Recent Encounters Date Type Specialty Providers Description 07/20/2016 [facility] [place], Chief Comp: Patient Encounter MD Jannie Reported Reason For [place], Visit MD Zoraida Sen Phillip G Jr., MD Sigurdsson, Gardar, MD 07/17/2016 [facility] Vascular [facility], Chief Comp: Patient Encounter MD All Reported Reason For Doroteo, Visit MD Jannie 07/17/2016 [facility] Vascular [place], Chief Comp: Patient Encounter MD Jannie Reported Reason For Oswaldo, Visit MD All 07/17/2016 [facility], Chief Comp: Patient Encounter MD Jannie Reported Reason For Visit [facility]: Patient Encounter MD Jannie Reported Reason For Oswaldo, Visit MD All 07/17/2016 [facility] Vascular Oswaldo, Chief Comp: Patient Encounter MD All Reported Reason For Doroteo, Visit MD Jannie 07/16/2016 [facility] Heart and Vascular [place], Chief Comp: Patient Encounter MD Jannie Reported Reason For Visit 07/16/2016 [facility] Radiology Cheyanne Pulliam, Chief Comp: Patient Encounter MD Reported Reason For Visit 07/16/2016 - [facility] General Care [place], Dx: Ischemic 07/23/2016 Encounter Inpatient - Adult MD Jannie cerebrovascular [place], accident (CVA) of Gal Loera MD frontal lobe (Primary [place]had[place], Usman, Dx) Jacque Hutchins MD Nawaz, Glendy Ernst MD 07/16/2016 Surgery Cardiology Demetroulis, CARDIAC CATH Zena Rodriguez MD Social History Tobacco Use Types Packs/Day Years Used Date Never Smoker Alcohol Use Drinks/Week oz/Week Comments No 0 Standard drinks or equivalent 0.0 Last Filed Vital Signs Vital Sign Reading Time Taken Blood Pressure 128/48 07/23/2016 12:19 PM CDT Pulse 80 07/23/2016 12:19 PM CDT Temperature 37.3 C (99.1 F) 07/23/2016 12:19 PM CDT Respiratory Rate 16 07/23/2016 12:19 PM CDT Height 1.6 m (5' 2.99") 07/21/2016 1:02 PM CDT Weight 104 kg (229 lb 4.5 oz) 07/23/2016 5:41 AM CDT Body Mass Index 40.63 07/23/2016 5:41 AM CDT Oxygen Saturation 95% 07/23/2016 12:19 PM CDT Plan of Care Date Type Specialty Providers Description 09/02/2016 Appointment Heart and Vascular Danna Roper, Chief Comp: Patient DO Reported Reason For [address] [place] [address] [phone] (Fax) Health Maintenance Due Date Last Done Comments Hepatitis B Vaccine (1 of 3 - Primary Series) 1940 Tdap Vaccine 09/25/1951 DIABETIC: Microalbumin 1958 Td Vaccine 1958 Mammogram 1980 Colonoscopy 1990 Zoster Vaccine 2000 Osteoporosis Screening (DXA Bone Density) 2005 Pneumococcal Vaccine (1 of 2 - PCV13) 2005 Influenza Vaccine: Seasonal (#1) 12/02/2015 DIABETIC: Foot Exam 07/16/2016 DIABETIC: Retinal Eye Exam 07/16/2016 DIABETIC: Hemoglobin A1C 01/20/2017 07/20/2016 DIABETIC: Cholesterol 07/16/2017 07/16/2016 Diabetic: Hdl 07/16/2017 07/16/2016 Diabetic: Ldl 07/16/2017 07/16/2016 DIABETIC: Triglycerides 07/16/2017 07/16/2016 Results from Last 3 Months BLOOD GLUCOSE, BEDSIDE (07/23/2016 11:22 AM)Only the most recent of33 resultswithin the time period is included. Component Value Range Glucose, Accu-Chek 203(H) 65-99 mg/dL Specimen Blood, capillary BASIC METABOLIC PANEL W/ CALCIUM (CHEM 8) (07/23/2016 5:22 AM)Only the most recent of6 resultswithin the time period is included. Component Value Range Sodium 138 135-145 mEq/L Potassium 4.3 3.5-5.0 mEq/L Chloride 98 95-107 mEq/L CO2 26 22-29 mEq/L BUN 25(H) 10-20 mg/dL Creatinine 0.8Comment: 0.5-1.0 mg/dL Creatinine switched to enzymatic method on 09/09/2010.GFR equation switched to IDMS-traceable MDRD equation on 09/09/2010. Calculated GFR values are not valid in clinical settings where serum creatinine is changing. Glucose 134(H)Comment: 65-99 mg/dL The Expert Committee on the Diagnosis and Classification of Diabetes has defined impaired fasting glucose as greater than or equal to 100 mg/dL but less than 126 mg/dL.(Diabetes Care 28 (Suppl 1)S41,2005) Calcium 8.8 8.5-10.5 mg/dL Anion Gap 14 mEq/L Calculated GFR 70 >60 mL/min/1.73 m2 Specimen Blood CBC (COMPLETE BLOOD COUNT) (07/23/2016 5:22 AM)Only the most recent of7 resultswithin the time period is included. Component Value Range WBC Count 8.0 3.7-10.5 K/MM3 RBC Count 3.69(L) 4.00-5.20 M/MM3 Hemoglobin 10.1(L) 11.9-15.5 g/dL Hematocrit 31(L) 35-47 % MCV (Mean Corpuscular Volume) 85 82-99 FL MCH (Mean Corpuscular Hemoglobin) 27 25-35 PG MCHC (Mean Corpuscular Hemoglobin Concentration) 32 32-36 % Platelet Count 201 150-400 K/MM3 MPV (Mean Platelet Volume) 10.4 9.4-12.3 FL RBC Dist Width-STD 49.5(H) 36.4-46.3 FL RBC Distrib Width 15.9(H) 9.0-14.5 % Nucleated RBC 0 /100 WBC Specimen Whole Blood PTT (PARTIAL THROMBOPLASTIN TIME) (07/23/2016 5:22 AM)Only the most recent of11 resultswithin the time period is included. Component Value Range PTT 21(L) 22-31 secs Specimen Blood PET PHARMACOLOGIC STRESS ECG, STAFF OR SAURAV ([id number]) (07/21/2016 3:02 PM)PET MYOCARDIAL PERFUSION REST& STRESS ([id number]) (07/21/2016 3:02 PM) Impressions Impression: 1. Abnormal stress myocardial perfusion. Large and severe predominantly fixed perfusion defect in inferolateral wall consistent with obstructive coronary artery disease; a small region of partial reversibility in distal inferolateral wall is noted, which may represent guillermina-infarct ischemia. 2. LVEF=56%. 3. ECG interpretation is reported separately. Contact: Findings were communicated with Dr. Niki Quiros (pager #[phone]) at 1755 hrs on 07/21/2016. Narrative Procedure: PET MYOCARDIAL PERFUSION REST & STRESS ([id number]) Indication: Pt admitted with CVA and [place], Evaluate for ischemia; 75 years old Female. Radiopharmaceuticals and other administered agents: 1. Rubidium-82 (Rb-82) 40.0 mCi IV in left wrist at 1435 hrs (rest). 2. Rb-82 40.0 mCi IV at 1446 hrs (stress). 3. Regadenoson 0.4 mg IV infusion at 1446 hrs. Technique: Resting myocardial perfusion PET-CT (Positron Emission Tomography - Computed Tomography) images were acquired upon intravenous injection of Rb-82. Stress image acquisition then began with Regadenoson IV infusion and subsequent IV administration of the Rb-82 stress dose thirty seconds later. Low dose CT images were used to construct attenuation corrected stress and rest cardiac PET images, which were interpreted in left ventricular (LV) short, vertical long, and horizontal long axis orientations. Comparison: No relevant prior exams are available for comparison. Findings: Stress ECG findings will be reported separately; preliminary review of baseline ECG tracing revealed no high degree AV block. Baseline ST segment elevation in leads V3-V6, II, III, and aVF. After Regadenoson, patient reported no adverse symptoms. Baseline heart rate of 87 bpm plateaued at 95 bpm. Blood pressure was 130/48 mm Hg at rest and plateaued at 115/49 mm Hg. Stress images show a large-sized area of severe hypoperfusion in the entire inferolateral wall. This defect is predominantly fixed on rest images with partial reversibility in a small region in distal inferolateral wall. Otherwise normal distribution of radiotracer activity in the remaining left ventricular vera. On the ECG gated images the wall motion in the perfusion defect region was unable to evaluate due to low count. The remaining left ventricular vera show normal wall motion. Estimated ejection fraction (LVEF) is 56% at rest and 53% following Regadenoson stress. End-diastolic volumes (LVEDV) are 112 mL at rest and 99 mL following Regadenoson stress. Due to the low count of inferolateral wall, the above calculated left ventricular ejection fraction and left ventricular volumes are not accurate. CT images show small amount left pleural effusion. Procedure Note Suleman, Incoming Imaging Results - Tue Jul 21, 2016 6:26 PM CDT Procedure: PET MYOCARDIAL PERFUSION REST & STRESS ([id number]) Indication: Pt admitted with CVA and [place], Evaluate for ischemia; 75 years old Female. Radiopharmaceuticals and other administered agents: 1. Rubidium-82 (Rb-82) 40.0 mCi IV in left wrist at 1435 hrs (rest). 2. Rb-82 40.0 mCi IV at 1446 hrs (stress). 3. Regadenoson 0.4 mg IV infusion at 1446 hrs. Technique: Resting myocardial perfusion PET-CT (Positron Emission Tomography - Computed Tomography) images were acquired upon intravenous injection of Rb-82. Stress image acquisition then began with Regadenoson IV infusion and subsequent IV administration of the Rb-82 stress dose thirty seconds later. Low dose CT images were used to construct attenuation corrected stress and rest cardiac PET images, which were interpreted in left ventricular (LV) short, vertical long, and horizontal long axis orientations. Comparison: No relevant prior exams are available for comparison. Findings: Stress ECG findings will be reported separately; preliminary review of baseline ECG tracing revealed no high degree AV block. Baseline ST segment elevation in leads V3-V6, II, III, and aVF. After Regadenoson, patient reported no adverse symptoms. Baseline heart rate of 87 bpm plateaued at 95 bpm. Blood pressure was 130/48 mm Hg at rest and plateaued at 115/49 mm Hg. Stress images show a large-sized area of severe hypoperfusion in the entire inferolateral wall. This defect is predominantly fixed on rest images with partial reversibility in a small region in distal inferolateral wall. Otherwise normal distribution of radiotracer activity in the remaining left ventricular vera. On the ECG gated images the wall motion in the perfusion defect region was unable to evaluate due to low count. The remaining left ventricular vera show normal wall motion. Estimated ejection fraction (LVEF) is 56% at rest and 53% following Regadenoson stress. End-diastolic volumes (LVEDV) are 112 mL at rest and 99 mL following Regadenoson stress. Due to the low count of inferolateral wall, the above calculated left ventricular ejection fraction and left ventricular volumes are not accurate. CT images show small amount left pleural effusion. IMPRESSION Impression: 1. Abnormal stress myocardial perfusion. Large and severe predominantly fixed perfusion defect in inferolateral wall consistent with obstructive coronary artery disease; a small region of partial reversibility in distal inferolateral wall is noted, which may represent guillermina-infarct ischemia. 2. LVEF=56%. 3. ECG interpretation is reported separately. Contact: Findings were communicated with Dr. Niki Quiros (pager #[phone]) at 1755 hrs on 07/21/2016. TROPONIN T (07/21/2016 3:47 AM)Only the most recent of9 resultswithin the time period is included. Component Value Range Troponin-T 2.68(H) <=0.10 ng/mL Specimen Blood US NECK/THYROID ([id number]) (07/20/2016 3:43 PM) Impressions Impression: 1. Two subcentimeter right thyroid nodules, one cystic with septations, the other hypoechoic. Both nodules are too small to biopsy. Suggest ultrasound follow-up in 6-12 months. --- Final --- Narrative [facility] Department of Radiology Ultrasound [place] [address] [address] [address] ULTRASOUND REPORT NAME:DAWNA KLINE Date of Service: 07/20/2016 MRN NO.: [id number] Review Date: 07/20/2016 Patient's : 1941Resident/Tech: [id number] Gregoria Carbajal Patient's Age: 75 years Referring MD:TANESHA RENNER Indication: Thyroid nodule identfied on CTA. Technique: Grayscale Thyroid ultrasound. Comparison: CTA. 07/17/2016. Findings: Thyroid: + +-------+ + +-------+ :Right Lobe:Size :Measurement (L x W x AP):Parenchyma :Flow : + +-------+ + +-------+ ::Normal.:3.9 x 1.2 x 1.9 cm. :Homogenous.:Normal.: + +-------+ + +-------+ +--------+ + + + -+ ::R Nodule location:Nodule size :Characteristics:FNA amenable: :: :(cm): : : +--------+ + + + -+ :Nodule 1:inferior :.7 x .8 x .7:cystic with septations :No : +--------+ + + + -+ :Nodule 2:mid::ill defined: : :: ::subcentimeter: : :: ::hypoechoic area: : +--------+ + + + -+ +---------+-------+ + +-------+ :Left Lobe:Size :Measurement (L x W x AP):Parenchyma :Flow : +---------+-------+ + +-------+ : :Normal.:3.8 x 1.0 x 1.2 cm. :Homogenous.:Normal.: +---------+-------+ + +-------+ +-------+ + + :Isthmus:Isthmus Thickness (cm):AP thickness is .4: +-------+ + + Procedure Note Suleman, Incoming Imaging Results - WedJul 20, 2016 4:33 PM CDT [facility] Department of Radiology Ultrasound Division [address] [place] [address] ULTRASOUND REPORT NAME: DAWNA KLINE Date of Service: 07/20/2016 MRN NO.: [id number] Review Date: 07/20/2016 Patient's : 1940 Resident/Tech: [id number] Gregoria Carbajal Patient's Age: 75 years Referring MD: TANESHA RENNER Indication: Thyroid nodule identfied on CTA. Technique: Grayscale Thyroid ultrasound. Comparison: CTA. 07/17/2016. Findings: Thyroid: + +-------+ + +-------+ :Right Lobe:Size :Measurement (L x W x AP):Parenchyma :Flow : + +-------+ + +-------+ : :Normal.:3.9 x 1.2 x 1.9 cm. :Homogenous.:Normal.: + +-------+ + +-------+ +--------+ + + + -+ : :R Nodule location:Nodule size :Characteristics :FNA amenable: : : :(cm) : : : +--------+ + + + -+ :Nodule 1:inferior :.7 x .8 x .7 :cystic with septations :No : +--------+ + + + -+ :Nodule 2:mid : :ill defined : : : : : :subcentimeter : : : : : :hypoechoic area : : +--------+ + + + -+ +---------+-------+ + +-------+ :Left Lobe:Size :Measurement (L x W x AP):Parenchyma :Flow : +---------+-------+ + +-------+ : :Normal.:3.8 x 1.0 x 1.2 cm. :Homogenous.:Normal.: +---------+-------+ + +-------+ +-------+ + + :Isthmus:Isthmus Thickness (cm):AP thickness is .4: +-------+ + + IMPRESSION Impression: 1. Two subcentimeter right thyroid nodules, one cystic with septations,the other hypoechoic. Both nodules are too small to biopsy. Suggest ultrasound follow-up in 6-12 months. --- Final --- ECHO ADULT - LIMITED STUDY ECHOCARDIOGRAM (07/20/2016 8:34 AM) Component Value Range Interpretation Summary TRANSTHORACIC ECHOCARDIOGRAM Limited study. No pericardial effusion. Wall motion abnormality within mid inferolateral and lateral wall. Patient Height (cm) 167.6 cm Patient Weight (kg) 96.2 kg Systolic Pressure (mmHg) 116 mmHg Diastolic Pressure (mmHg) 44 mmHg BSA (meters^2) 2.1 m^2 Left Ventricle (LV) Normal left ventricular size. Mild left ventricular hypertrophy. Low normal left ventricular systolic function. LV Ejection Fraction=50-55% (based on visual estimate). Regional wall motion abnormality noted which is consistent with Left Circumflex (LCx) disease Akinesis within mid inferolateral and lateral wall. Right Ventricle (RV) Normal right ventricular size. Normal right ventricular systolic function. Left and Right Atria (LA, RA) Mildly enlarged left atrial size. Mitral Valve (MV) The MV leaflets do not appear to be significantly restricted. Mildly calcified mitral annulus Tricuspid Valve (TV) Probably normal tricuspid valve morphology Aortic Valve (AoV) Trileaflet Aortic valve. Aortic valve leaflets do not appear to be significantly restricted. Aortic valve leaflets do not appear to be significantly calcified. Pulmonic Valve (PV) The pulmonic valve leaflets are poorly seen. Aorta and Pulmonary Artery (Ao, PA) The proximal aortic root does not appear enlarged. Pericardium/Pleura There is no pericardial effusion. Procedures Limited 2D ([id number]) Inf. Vena Cava (IVC) / Pulm. Veins The IVC appears enlarged (visual estimate) . LVAd ap4 20.6 cm^2 EF(MOD-sp4) 51.4 % Low Range of LVEF 50 High Range of LVEF 55 Reason For Study Eval for effusion and regional [employer] Clara Hartmann Interpreting Physician Natan Reece MD electronically signed on 2016-07-20 09:08:05.353 ECG - EKG 12 LEAD (07/20/2016 7:45 AM)Only the most recent of4 resultswithin the time period is included. Component Value Range ECG SEVERITY - ABNORMAL ECG - VENT. RATE 89 bpm RR 674 ms QRSD INTERVAL 76 ms QT INTERVAL 368 ms QTC INTERVAL 448 ms QRS AXIS -1 degrees T WAVE AXIS 33 degrees REPORT ATRIAL FIBRILLATION [Now Present] ST ELEVATION, PROBABLE LATERAL INJURY [Now Present] SIGNIFICANT RHYTHM AND ECG CONTOUR CHANGES [Now Absent] ATRIAL PREMATURE COMPLEX [Now Absent] SINUS RHYTHM Interpreting Physician: Baldemar Conway MD CREATINE KINASE (07/20/2016 7:41 AM) Component Value Range Creatine Kinase 182 26-192 U/L Specimen Blood HEMOGLOBIN A1C (07/20/2016 4:43 AM) Component Value Range Hemoglobin A1c 6.6(H)Comment: 4.8-6.0 % Glycemic Control Guidelines: Non-diabetic <6% Goal <7% Therapeutic Action >8% Estimated Average Glucose 143Comment: mg/dL The estimated average glucose (eAG) calculated from the HbA1c changed on 20/12.See Laboratory Bulletins in the Department of Pathology Laboratory Services Handbook for a full discussion.Not e that the new calculated glucose will now be lower.The A1c result is unchanged. Specimen Whole Blood MRI BRAIN WO CONTRAST ([id number]) (07/18/2016 11:49 PM) Impressions Impression: 1. New infarct right frontal lobe involving the precentral gyrus, likely embolic in nature. 2. Additional known subacute infarcts are identified. The known subacute left frontal lobe infarct shows associated petechial hemorrhage. Results of the procedure were given to: PERSON CONTACTED:Yasmeen CarterBonilla DATE: 07/19/2016 TIME CALLED:[id number] PHONE/PAGER:[phone] This final report is in agreement with the critical and emergent preliminary findings reported by the radiology assistant vocational auto body instructor. The preliminary report by the radiology assistant vocational auto body instructor did not include non emergent findings of petechial hemorrhage as opposed to macroscopic hemorrhagic transformation along the subacute left frontal lobe infarct which was added to the final report. Narrative Procedure: MRI BRAIN WO CONTRAST ([id number]) Indication: Concern for new CVA given worsening of symptoms Technique: Multisequence, multiplanar MRI of the brain without IV contrast. Comparison: 07/16/2016 Findings: There is two small adjacent foci of acute infarct in right superior posterior frontal lobe, anterior to precentral gyrus. It is hyperintense on FLAIR and shows diffusion restriction. Persistent subacute infarcts in the bilateral frontal lobes. There is mild interval increase in edema around the prior infarcts. Normal brainstem and posterior fossa. The pituitary and suprasellar region are unremarkable. The major intracranial flow-voids are preserved. Normal orbits. The paranasal sinuses and mastoid air cells are clear. Normal bone marrow signal. Procedure Note Suleman, Incoming Imaging Results - [place] Jul 19, 2016 11:08 AM CDT Procedure: MRI BRAIN WO CONTRAST ([id number]) Indication: Concern for new CVA given worsening of symptoms Technique: Multisequence, multiplanar MRI of the brain without IV contrast. Comparison: 07/16/2016 Findings: There is two small adjacent foci of acute infarct in right superior posterior frontal lobe, anterior to precentral gyrus. It is hyperintense on FLAIR and shows diffusion restriction. Persistent subacute infarcts in the bilateral frontal lobes. There is mild interval increase in edema around the prior infarcts. Normal brainstem and posterior fossa. The pituitary and suprasellar region are unremarkable. The major intracranial flow-voids are preserved. Normal orbits. The paranasal sinuses and mastoid air cells are clear. Normal bone marrow signal. IMPRESSION Impression: 1. New infarct right frontal lobe involving the precentral gyrus, likely embolic in nature. 2. Additional known subacute infarcts are identified. The known subacute left frontal lobe infarct shows associated petechial hemorrhage. Results of the procedure were given to: PERSON CONTACTED: Carla CarterHardeep DATE: 07/19/2016 TIME CALLED: [id number] PHONE/PAGER: [phone] This final report is in agreement with the critical and emergent preliminary findings reported by the radiology assistant vocational auto body instructor. The preliminary report by the radiology assistant vocational auto body instructor did not include non emergent findings of petechial hemorrhage as opposed to macroscopic hemorrhagic transformation along the subacute left frontal lobe infarct which was added to the final report. MAGNESIUM (07/18/2016 4:52 AM)Only the most recent of3 resultswithin the time period is included. Component Value Range Magnesium 1.7 1.5-2.9 mg/dL Specimen Blood CT BRAIN WO CONTRAST ([id number]) (07/17/2016 10:30 PM) Impressions Impression: 1. Expected evolution of hemorrhagic infarct in the left anterior frontal lobe without increased hemorrhagic component. 2. Expected evolution of infarct in the right posterior frontal lobe. No significant mass effect. This final report is in agreement with the critical and emergent preliminary findings reported by the radiology assistant vocational auto body instructor. Narrative Procedure: CT BRAIN WO CONTRAST ([id number]) Indication: confusion; recent ICH Technique: Axial CT of the brain without IV contrast. Sagittal and coronal reformations are also provided for review. Comparison: External head CT dated 07/16/2016 Findings: Expected evolution of infarct in the left anterior frontal lobe with stable small focal hemorrhage. Expected evolution of infarct in the right posterior frontal lobe without hemorrhagic transformation. No significant mass effect. The ventricles, cortical sulci and basal cisterns are symmetric and age appropriate. Normal brainstem and posterior fossa. The scalp and calvarium are unremarkable. Procedure Note Suleman, Incoming Imaging Results - Sat Jul 18, 2016 10:59 AM CDT Procedure: CT BRAIN WO CONTRAST ([id number]) Indication: confusion; recent ICH Technique: Axial CT of the brain without IV contrast. Sagittal and coronal reformations are also provided for review. Comparison: External head CT dated 07/16/2016 Findings: Expected evolution of infarct in the left anterior frontal lobe with stable small focal hemorrhage. Expected evolution of infarct in the right posterior frontal lobe without hemorrhagic transformation. No significant mass effect. The ventricles, cortical sulci and basal cisterns are symmetric and age appropriate. Normal brainstem and posterior fossa. The scalp and calvarium are unremarkable. IMPRESSION Impression: 1. Expected evolution of hemorrhagic infarct in the left anterior frontal lobe without increased hemorrhagic component. 2. Expected evolution of infarct in the right posterior frontal lobe. No significant mass effect. This final report is in agreement with the critical and emergent preliminary findings reported by the radiology assistant vocational auto body instructor. CT ANGIO HEAD& NECK W/WO ([id number], [id number]) (07/17/2016 5:14 PM) Impressions Impression: 1. 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 2. Right thyroid nodule can be better evaluated with ultrasound if clinically indicated. This final report is in essential agreement with the critical and emergent preliminary findings reported by the radiology assistant vocational auto body instructor. The vertebral artery findings were discussed with Dr. Elizabeth following patient at pager [phone] at 0934 hours on July 18, 2016. Narrative Procedure: CT ANGIO HEAD & NECK W/WO ([id number], [id number]) Indication: Ischemic cerebrovascular accident (CVA) of frontal lobe Exam: Axial CT angiogram of the neck and [place] after the uneventful administration of 50 mL Isovue-370 IV contrast. Sagittal and coronal reformations were also provided for review. 3D images were created on an independent workstation to better evaluate potential vascular abnormalities. Comparison: None. Findings: - CTA Neck: There is classic aortic branching with mild atherosclerotic calcification at the origins. There is normal course and caliber of the common carotid arteries. There is mild atherosclerotic calcification at the origin of bilateral ICA. Remainder of bilateral cervical ICA are normal. The vertebral arteries originate from the subclavian arteries atherosclerotic ossification at the origins. The stenosis at the origin of the right vertebral artery does moderate-severe. There is normal course and caliber of the cervical vertebral arteries. The left vertebral artery is dominant. Heterogeneous thyroid with 1.0 cm nodule in the right thyroid. Degenerative changes of cervical spine. - CTA Head: There is mild atherosclerotic calcification of bilateral paraclinoid ICAs. Remainder of the distal internal carotid arteries are unremarkable. Normal distal vertebral and basilar arteries. There is no significant stenosis in the anterior, middle or posterior cerebral arteries. No evidence of aneurysm or malformation. Procedure Note Suleman, Incoming Imaging Results - Sat Jul 18, 2016 9:36 AM CDT Procedure: CT ANGIO HEAD & NECK W/WO ([id number], [id number]) Indication: Ischemic cerebrovascular accident (CVA) of frontal lobe Exam: Axial CT angiogram of the neck and [place] after the uneventful administration of 50 mL Isovue-370 IV contrast. Sagittal and coronal reformations were also provided for review. 3D images were created on an independent workstation to better evaluate potential vascular abnormalities. Comparison: None. Findings: - CTA Neck: There is classic aortic branching with mild atherosclerotic calcification at the origins. There is normal course and caliber of the common carotid arteries. There is mild atherosclerotic calcification at the origin of bilateral ICA. Remainder of bilateral cervical ICA are normal. The vertebral arteries originate from the subclavian arteries atherosclerotic ossification at the origins. The stenosis at the origin of the right vertebral artery does moderate-severe. There is normal course and caliber of the cervical vertebral arteries. The left vertebral artery is dominant. Heterogeneous thyroid with 1.0 cm nodule in the right thyroid. Degenerative changes of cervical spine. - CTA Head: There is mild atherosclerotic calcification of bilateral paraclinoid ICAs. Remainder of the distal internal carotid arteries are unremarkable. Normal distal vertebral and basilar arteries. There is no significant stenosis in the anterior, middle or posterior cerebral arteries. No evidence of aneurysm or malformation. IMPRESSION Impression: 1. 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 2. Right thyroid nodule can be better evaluated with ultrasound if clinically indicated. This final report is in essential agreement with the critical and emergent preliminary findings reported by the radiology assistant vocational auto body instructor. The vertebral artery findings were discussed with Dr. Elizabeth following patient at pager [phone] at 0934 hours on July 18, 2016. VASC UPPER EXT VENOUS DUPLEX (BILATERAL) (07/17/2016 3:43 PM)PICC LINE REQUEST (07/17/2016 11:26 AM) Bhavesh Quintero RN 07/17/2016 11:26 AM Procedure PICC Line Insertion, 07/17/2016 Consent for Procedure The procedure was explained to the patient including risks and benefits.Patient signed consent form and wishes to proceed. A time out was performed at bedside. Location: Patient room Description of Procedure The weight count operator performed proper hand hygiene and utilized maximum sterile barrier precautions. The patient's skin was prepped with CHG and draped with a large body drape in the usual sterile fashion.Using ultrasound guidance, the right basilic vein was identified and assessed for patency.3 cc's of 1% lidocaine was injected into the skin.Using the Seldinger technique and ultrasound guidance, the vein was entered with a 21 gauge micropuncture needle and the wire threaded into the vein.A 39.5 cm 5 Fr double lumen Bard Power PICC SOLO catheter (Lot number [id number]) was inserted into the tear-away sheath.Blood was aspirated from both lumens and the catheter was easily flushed with saline, secured into place, and dressed with a sterile CHG tegaderm. The distal tip was confirmed in the superior vena cava. PICC line placement was confirmed by chest x-ray.PICC line is ready for use. Procedure was successful at bedside. Complications There were no immediate complications. Staff Bhavesh Haji, RN-BSN Nurse Clinical Specialist PICC Service ECHO ADULT - TRANSESOPHAGEAL ECHOCARDIOGRAM (MARGARITA) (07/17/2016 11:19 AM) Component Value Range Interpretation Summary Normal left ventricular size. LV Ejection Fraction=50-60% (based on visual estimate). No regional wall motion abnormalities noted. Patent foramen ovale with 'left to right' shunting seen by color flow mapping. Moderate mitral regurgitation by Doppler. Patient Height (cm) 167.6 cm Patient Weight (kg) 96.2 kg BSA (meters^2) 2.1 m^2 Left Ventricle (LV) Normal left ventricular size. Normal left ventricular systolic function. LV Ejection Fraction=50-60% (based on visual estimate). Gr 2 LV diastolic dysfunction (Pseudonormalized pattern). No regional wall motion abnormalities noted. Right Ventricle (RV) Normal right ventricular size. Normal right ventricular systolic function. Left and Right Atria (LA, RA) No thrombus is detected in the left atrial appendage. Normal LA chamber size. Patent foramen ovale with 'left to right' shunting seen by color flow mapping. Mitral Valve (MV) Normal mitral valve leaflet morphology The MV leaflets do not appear restricted. There are no mobile echodensities on MV to suggest vegetations. Moderate mitral regurgitation by Doppler. ERO is 0.26 cm2, PISA radius of 0.74 cm Tricuspid Valve (TV) Normal tricuspid valve morphology There are no mobile echodensities seen on the TV to support endocarditis. Trace Tricuspid regurgitation RV/RA peak instantaneous systolic gradient=27mmHg. Doppler tracings across the Tricuspid Valve are suboptimal.This may result in an underestimate of the RV/RA systolic pressure Aortic Valve (AoV) Trileaflet Aortic valve. Aortic valve leaflets do not appear to be significantly calcified. The aortic valve leaflet mobility appears normal Trace aortic insufficiency Pulmonic Valve (PV) Normal pulmonic valve No pulmonic valvular regurgitation by color doppler. Aorta and Pulmonary Artery (Ao, PA) The proximal aortic root does not appear enlarged. No descending aorta atherosclerotic plaques noted Pericardium/Pleura Trivial pericardial fluid noted behind the left atrial appendage. Procedures MARGARITA ([id number]) Doppler ([id number]) Saline bubble study ([id number]) Informed consent was obtained after thorough explanation of the procedure, risks and benefits, with time allowed for the patient or patient sales representative leather goods's concerns and questions Pre-procedure ASA Category III PreProcedure VX=328/53 mmHg. PreProcedure HR=70 bpm Pre Procedure O2 Sat=95 %. Pre Procedure RR=20 per min. BSA=2.12 m^2. MARGARITA probe inserted proceeded without difficulty or apparent complications. MARGARITA scope number 004 utilized for this exam. Post Procedure BH=413/59 mmHg. Post Procedure HR=75 bpm Post Procedure O2 Ibq=204 %. Post Procedure RR=29 per min. Versed 2mg IV Patient recovery: Patient recovered and dismissed in stable condition I was present for the entire procedure I personally viewed the echocardiogram and approve the above interpretation Inf. Vena Cava (IVC) / Pulm. Veins IVC not visualized Primary ICD-9 Code Transient cerebral ischemia, unspecified (435.9) Low Range of LVEF 50 High Range of LVEF 60 Reason For Study CVA/TIA Shipyard Painter Helper Cee Humphrey Interpreting Physician Chao Dunne electronically signed on 2016-07-17 15:01:59.32 CHEST - AP/PA (07/17/2016 10:57 AM) Impressions Findings / Impression: Right upper extremity PICC in good position terminating in the SVC. The cardiomediastinal silhouette and pulmonary vasculature are normal. Diffuse mild groundglass airspace disease of the left lung is most prominent at the base and likely represents atelectasis.. There is no pleural effusion or pneumothorax. Narrative Procedure: CHEST - AP/PA Technique: Portable AP chest radiograph Comparison: Chest radiograph(s) dated: None. Clinical Indication: PICC placement Procedure Note Suleman, Incoming Imaging Results - WedJul 17, 2016 11:20 AM CDT Procedure: CHEST - AP/PA Technique: Portable AP chest radiograph Comparison: Chest radiograph(s) dated: None. Clinical Indication: PICC placement IMPRESSION Findings / Impression: Right upper extremity PICC in good position terminating in the SVC. The cardiomediastinal silhouette and pulmonary vasculature are normal. Diffuse mild groundglass airspace disease of the left lung is most prominent at the base and likely represents atelectasis.. There is no pleural effusion or pneumothorax. VASC LOWER EXT VENOUS DUPLEX (BILATERAL) (07/17/2016 9:12 AM)CHEM 6 PANEL ( 4:19 AM) Component Value Range Sodium 138 135-145 mEq/L Chloride 99 95-107 mEq/L Potassium 4.5 3.5-5.0 mEq/L CO2 27 22-29 mEq/L BUN 14 10-20 mg/dL Creatinine 0.6Comment: 0.5-1.0 mg/dL Creatinine switched to enzymatic method on 09/09/2010.GFR equation switched to IDMS-traceable MDRD equation on 09/09/2010. Calculated GFR values are not valid in clinical settings where serum creatinine is changing. Anion Gap 12 8-18 mEq/L Calculated GFR >90 >60 mL/min/1.73 m2 Specimen Blood PLATELET COUNT (07/17/2016 4:19 AM)Only the most recent of2 resultswithin the time period is included. Component Value Range Platelet Count 213 150-400 K/MM3 Specimen Whole Blood HEMOGLOBIN (07/17/2016 4:19 AM) Component Value Range Hemoglobin 11.1(L) 11.9-15.5 g/dL Specimen Whole Blood LIPID PANEL (07/16/2016 9:28 PM) Component Value Range Cholesterol 139Comment: mg/dL Reference Range: Less than 200 mg/dL - desirable 200 - 240 mg/dL - increased risk Above 240 mg/dL - significant risk Triglycerides 67Comment: 0-150 mg/dL Reference Ranges: Normal:<150 mg/dL Borderline-high:150-199 mg/dL High: 200-499 mg/dL Very high: > ka=088 mg/dL HDL Cholesterol 68 >=41 mg/dL LDL - Calculated 58 <=130 mg/dL Non-HDL Cholesterol (Calc) 71Comment: mg/dL The reference ranges for Non-HDL-C are based on National Cholesterol Education III guidelines: Desirable: <130 mg/dL Borderline High: 130-159 mg/dL High:160-189 mg/dL Very High: > ro=794 mg/dL Specimen Blood POTASSIUM (07/16/2016 9:28 PM)Only the most recent of2 resultswithin the time period is included. Component Value Range Potassium 4.6 3.5-5.0 mEq/L Specimen Blood Narrative This sample was misidentified to the patient care area. Cori Pacheco , [facility]#[id number] authorized Moni Oropeza to reconcile the error and accept responsibility for the identity of the sample. CREATININE (07/16/2016 8:17 PM) Component Value Range Creatinine 0.6Comment: 0.5-1.0 mg/dL Creatinine switched to enzymatic method on 09/09/2010.GFR equation switched to IDMS-traceable MDRD equation on 09/09/2010. Calculated GFR values are not valid in clinical settings where serum creatinine is changing. Calculated GFR >90 >60 mL/min/1.73 m2 Specimen Blood BLOOD UREA NITROGEN (07/16/2016 8:17 PM) Component Value Range BUN 13 10-20 mg/dL Specimen Blood CO2 (07/16/2016 8:17 PM) Component Value Range CO2 27 22-29 mEq/L Anion Gap 14 8-18 mEq/L Specimen Blood CHLORIDE (07/16/2016 8:17 PM) Component Value Range Chloride 96 95-107 mEq/L Specimen Blood SODIUM (07/16/2016 8:17 PM) Component Value Range Sodium 137 135-145 mEq/L Specimen Blood PT/INR (PROTHROMBIN TIME/INR) VENOUS (07/16/2016 8:10 PM) Component Value Range PT (Prothrombin Time) 14(H) 9-12 secs INR 1.3 <4.0 Specimen Blood ECHO ADULT : AFTERHOURS ECHOCARDIOGRAM, TRANSTHORACIC (TTP) (07/16/2016 7:03 PM ) Component Value Range Interpretation Summary TRANSTHORACIC ECHOCARDIOGRAM No previous echo studies available for comparison Probably normal left ventricular size Low normal left ventricular systolic function. Probably normal right ventricular size Probably normal right ventricular systolic function. MR is at least mild Left Ventricle (LV) Probably normal left ventricular size Left ventricular hypertrophy. Low normal left ventricular systolic function. Right Ventricle (RV) Probably normal right ventricular size Probably normal right ventricular systolic function. Left and Right Atria (LA, RA) Normal LA chamber size. Visualization of the RA chamber is limited Mitral Valve (MV) Normal mitral valve leaflet morphology Mildly calcified mitral annulus Mild mitral regurgitation by Doppler. Tricuspid Valve (TV) Visualization of the Tricuspid Valve is inadequate Aortic Valve (AoV) Visualization of the Aortic Valve is adequate No aortic regurgitation by color Doppler. Pulmonic Valve (PV) Pulmonic valve is not visualized Pericardium/Pleura Trivial pericardial effusion. Shipyard Painter Helper Alvin Rogel Interpreting Physician Chao Dunne electronically signed on 2016-07-17 08:02:43.993 EXTERNAL MRI-STORE& INTERPRET (07/16/2016 6:25 PM) Impressions Impression: 1. Acute, ischemic infarctions in the right frontal lobe suggestive of embolic insults. 2. Infarction in the left anterior frontal lobe with hemorrhagic transformation. Narrative Outside MRI was performed at 0848 hours on 07/16/2016 at [facility]. 202 images are provided and interpreted on the in-house PACS. Procedure: EXTERNAL MRI-STORE & INTERPRET Indication: Strokelike symptoms. Technique: Multisequence, multiplanar MRI of the brain without IV contrast. Comparison: External CT brain dated 07/16/2016 at 1515. Findings: There is diffuse parenchymal atrophy with prominence of the cortical sulci. There are two areas of restricted diffusion in the right frontal lobe around the precentral gyrus consistent with infarction. In the left anterior frontal lobe there is an area of T2/FLAIR hyperintense signal with hypointense signal on T1-weighted images, diffusion restriction, and foci of blooming on T2*. There is mild mass effect around this lesion. No gross evidence of intracranial mass-lesion. The ventricles, cortical sulci, and basal cisterns are symmetric. Normal brainstem and posterior fossa. The pituitary and suprasellar region are unremarkable. The major intracranial flow-voids are preserved. Normal orbits. Visualized paranasal sinuses are well aerated. Mastoid air cells are clear. Normal bone marrow signal. Procedure Note Suleman, Incoming Imaging Results - WedJul 17, 2016 12:15 PM CDT Outside MRI was performed at 0848 hours on 07/16/2016 at [facility]. 202 images are provided and interpreted on the in-house PACS. Procedure: EXTERNAL MRI-STORE & INTERPRET Indication: Strokelike symptoms. Technique: Multisequence, multiplanar MRI of the brain without IV contrast. Comparison: External CT brain dated 07/16/2016 at 1515. Findings: There is diffuse parenchymal atrophy with prominence of the cortical sulci. There are two areas of restricted diffusion in the right frontal lobe around the precentral gyrus consistent with infarction. In the left anterior frontal lobe there is an area of T2/FLAIR hyperintense signal with hypointense signal on T1-weighted images, diffusion restriction, and foci of blooming on T2*. There is mild mass effect around this lesion. No gross evidence of intracranial mass-lesion. The ventricles, cortical sulci, and basal cisterns are symmetric. Normal brainstem and posterior fossa. The pituitary and suprasellar region are unremarkable. The major intracranial flow-voids are preserved. Normal orbits. Visualized paranasal sinuses are well aerated. Mastoid air cells are clear. Normal bone marrow signal. IMPRESSION Impression: 1. Acute, ischemic infarctions in the right frontal lobe suggestive of embolic insults. 2. Infarction in the left anterior frontal lobe with hemorrhagic transformation. EXTERNAL CT-STORE& INTERPRET (07/16/2016 6:24 PM) Impressions Impression: 1. Findings concerning for acute ischemia in the bilateral frontal lobes. 2. Petechial hemorrhage suspected within the left frontal ischemic region. Narrative Outside film interpretation requested. Exam was performed at 1515 hours on 07/16/2016 at [facility]. 33 images are provided and interpreted on the in-house PACS. Procedure: EXTERNAL CT-STORE & INTERPRET. Indication: Stroke. Ischemic cerebrovascular accident of frontal lobe. Comparison: External MRI of the same date. Technique: Axial CT of the brain without IV contrast. Bone and soft tissue windows are provided for review. Findings: There is a focal peripheral, wedge-shaped hypodensity in the left frontal lobe involving the cortex and subcortical white matter seen about image 2-11. There are small foci of hyperdensity intermixed within this lesion, without mass effect. Additionally, there is a focal hypodensity (smaller, up to 1 cm in size) within the right centrum semiovale on image 2-19. The ventricles, cortical sulci and basal cisterns are symmetric and age appropriate. Normal brainstem and posterior fossa. The scalp and calvarium are unremarkable. Procedure Note Suleman, Incoming Imaging Results - WedJul 17, 2016 2:17 PM CDT Outside film interpretation requested. Exam was performed at 1515 hours on 07/16/2016 at [facility]. 33 images are provided and interpreted on the in-house PACS. Procedure: EXTERNAL CT-STORE & INTERPRET. Indication: Stroke. Ischemic cerebrovascular accident of frontal lobe. Comparison: External MRI of the same date. Technique: Axial CT of the brain without IV contrast. Bone and soft tissue windows are provided for review. Findings: There is a focal peripheral, wedge-shaped hypodensity in the left frontal lobe involving the cortex and subcortical white matter seen about image 2-11. There are small foci of hyperdensity intermixed within this lesion, without mass effect. Additionally, there is a focal hypodensity (smaller, up to 1 cm in size) within the right centrum semiovale on image 2-19. The ventricles, cortical sulci and basal cisterns are symmetric and age appropriate. Normal brainstem and posterior fossa. The scalp and calvarium are unremarkable. IMPRESSION Impression: 1. Findings concerning for acute ischemia in the bilateral frontal lobes. 2. Petechial hemorrhage suspected within the left frontal ischemic region.
--- NOTE | 2016-07-23 20:09 | HP ---
Chief Complaint - Chief Complaint Date of Service: 07/23/16 Time of Service: 20:02 Chief Complaint: ' Weakness, CVA,'. Source of HPI- Pt; reliable, pt's family, Pt EMR. History of Present Illness: Mrs. Alegria is a 75-yr-old WF pt of Dr. Farida Dill with a PMH of A-fib, CVA, HLD & HTN. Pt initially presented to the [facility] ER on 07/15/16 for facial drooping, slurry speech & LT sided weakness. A head CT was completed and it revealed an acute to subacute stroke involving the LT frontal lobe. She received treatment with ASA & Plavix and was admitted under observation. An MRI was also performed and it showed that the largest area of infarct was in the LT frontal lobe. On 07/16 pt experienced nausea and vomited. An EKG was obtained and it showed STEMI on the inferior leads and ST depressions in the V1-V3. Troponin was found to be also elevated at 0.22. She did not experience any chest pain or SOB, and she remained hemodynamically stable during the episode. She was then transferred to the [facility] under Cardiology service for higher level of care. During the hospital course at the [facility], A TTE was completed initially and it did not show any myocardial wall motion abnormalities. She was medically managed with Heparin ( 48 hours) and Aspirin. Repeat Echocardiogram on 07/21/16 showed lateral wall motion abnormality. PET myocardial perfusion scan was done and it revealed a fixed defect in the inferolateral wall consistent with CAD. Angiography was not pursued due to the fixed nature of the defect. On 07/17, the LT sided weakness worsened and neurology was re-consulted. A repeat CT scan showed stable LT frontal Stroke. Aspirin was continued. On , she developed LT distal hand weakness and an MRI of the brain obtained revealed new stroke in the RT hemisphere. Dual antiplatelet therapy with Plavix and Aspirin & Atorvastatin was continued. Off note, she also developed A-fib on 07/20 and neurology recommended waiting 2 weeks after her stroke to start the Anticoagulation, but in the meantime, antiplatelet therapy was to be continued. Pt was medically stable to be discharged from the [facility] on 07/23/16. She was transferred to the [facility]- Skilled placement for continued strengthening with PT/OT due to increased weakness, decreased activity tolerance & motivation. J - Patient's Past Medical History Patient History - Medical: Diabetes Type 2 Insulin Dependent Patient History - Cardiac/Respiratory: CVA/Stroke, Hypertension, Hyperlipidemia , Myocardial Infarction Patient History - Cancer: No Hx of Cancer Patient History - Surgical Procedures: Cataracts, D & C, Other Patient History - Other: None - Family History Mother Family History - Medical: Family History - Cardiac/Respiratory: Myocardial Infarction Father Family History - Medical: Family History - Cardiac/Respiratory: Myocardial Infarction - Social History Living Situations: spouse Abuse History: No History of abuse Psych History: No pertinent hx Alcohol Use: occasionally Drug Use: none - Immunizations Immunizations Up to Date: Yes Hx Pneumococcal Vaccination: No History of Influenza Vaccine: Yes Review Of Systems (GEN) - Review of Systems Generalized/Overall Review: Present: Weakness - LT sided weakness,. Absent: Fever, Diaphoresis, Fatigue EENTM: Absent: Eye Pain, Double Vision, Nose Congestion Respiratory: Present: Cough. Absent: Shortness of Breath, Orthopnea, Wheezing Cardiac: Present: Edema. Absent: Chest Pain, Palpitations, Syncope Abdominal: Present: Constipation. Absent: Nausea, Vomiting, Abdominal Pain Genitourinary: Present: Frequency. Absent: Burning, Itching Musculoskeletal: Absent: Joint Pain, Back Pain, Muscle Pain Neurological: Present: Weakness. Absent: Headache, Tremors Skin: Present: Bruising - Scattered on upper extremities. Endocrine: Present: Intolerance to Cold. Absent: Increased Thirst Misc: All systems neg except as marked Immunizations: IMMUNIZATION HX Immunizations Up to Date Yes History of Influenza Vaccine Yes Hx Pneumococcal Vaccination No Allergies/Adverse Reactions: Allergies Allergy/AdvReac Type Severity Reaction Status Date / Time No Known Allergies Allergy Verified 07/15/16 15:31 Home Medications: HOME MEDICATIONS Lisinopril [Zestril] 20 mg PO DAILY 12/16/12 [Last Taken 05/19/16] Simvastatin [Zocor] 20 mg PO HS 12/16/12 [Last Taken 05/19/16] Calcium Carbonate/Vitamin D3 [Calcium 600-Vit D3 400 Tablet] 1 each PO DAILY 12/16 [Last Taken 05/19/16] Fish Oil/Borage/Flax/Om3,6,9#1 [[place] 3-6-9 1,200 mg Softgel] 2,400 mg PO DAILY 04/09/16 [Last Taken 05/19/16] Insulin Glargine,Hum.rec.anlog [Lantus Solostar] 35 unit SQ HS 04/09/16 [Last Taken 05/19/16] Multivitamins [Multivitamin Natasha] 1 cap PO DAILY 04/09/16 [Last Taken 05/19/16 ] metFORMIN HCL [Glucophage] 1,000 mg PO BIDWM 04/09/16 [Last Taken 05/19/16] Aspirin [Aspirin EC] 81 mg PO DAILY 07/15/16 [Last Taken Unknown] Naproxen Sodium [Aleve] 220 mg PO BID 07/15/16 [Last Taken Unknown] glipiZIDE [Glucotrol] 5 mg PO DAILY@0700 07/15/16 [Last Taken Unknown] Exam - Exam Vital Signs: Vital Signs - Last Taken Temp 36.9 C 07/16/16 14:07 Pulse Resp BP 184/103 07/16/16 14:50 Pulse Ox Constitutional: Present: Alert, No distress ENT Exam: Present: hearing grossly normal. Absent: nasal congestion, nasal drainage Eye Exam: bilateral eye: normal inspection Neck: Present: full range of motion Back Exam: Present: normal inspection Breasts: Present: Exam deferred Respiratory: Present: lungs clear, no accessory muscle use, No wheezing Cardiovascular/Chest: Present: normal peripheral pulses, no chest tenderness, no murmur, irregularly irregular Abdomen: Present: Normal bowel sounds, soft, nontender /Rectal: Present: Exam deferred Extremity: Present: normal range of motion, normal inspection, lower extremity edema - Non- pitting Edema. Skin Exam: Present: no cyanosis, cool/dry, other - Scattered bruising on BUE Lymphatic: Present: no adenopathy Neurologic: Present: alert, motor weakness - Muscle strength on RUE 4/5, & 2/5 on LUE.. Absent: aphasia, facial droop, dizzy/light-headedness Appearance: Present: appropriate appearance, appropriate insight Eye contact: Present: cooperative, good eye contact, normal speech Thoughts: Present: normal thought pattern, no apparent hallucination Assessment/Plan - Assessment/Plan (1) CVA (cerebral vascular accident) Assessment: Now stable. Continue with Plavix, Aspirin and Atorvastatin. Involve PT/OT for continued strengthening. Problem: Acute Qualifiers: Laterality of affected vessel: left (2) Generalized weakness Assessment: PT/OT -Anticipate 1-2 weeks depending on the progress. Problem: Acute (3) A-fib Assessment: She also developed A-fib on 07/20 and neurology recommended waiting 2 weeks after her stroke to start the Anticoagulation, but in the meantime, antiplatelet therapy is to be continued. Once INR is therapeutic, it's recommended that she may stop the ASA and continue Warfarin and Plavix. Problem: Chronic (4) HTN (hypertension) Problem: Chronic Qualifiers: Hypertension type: essential hypertension Qualified Code(s): I10 - Essential (primary) hypertension (5) HLD (hyperlipidemia) Problem: Chronic
[2016-07-23] MEDS ORDERED: HYDROcodone/ACETAMINOPHEN 1 EACH TABLET PO PRN (23:29)
[2016-07-24] MEDS: INSULIN ASPART 100 UNITS/ML VIAL SC SCH ×3 (07:35→17:08)
[2016-07-24] MEDS: CALCIUM CARBONATE 500 MG TAB.CHEW PO SCH (08:39)
[2016-07-24] MEDS: LISINOPRIL 2.5 MG TABLET PO SCH (08:39)
[2016-07-24] MEDS: MULTIVITAMINS 1 CAP CAPSULE PO SCH (08:39)
[2016-07-24] MEDS: OMEGA-3 FATTY ACIDS 1 CAP CAPSULE PO SCH (08:39)
[2016-07-24] MEDS: METOPROLOL TARTRATE 25 MG TABLET PO SCH ×2 (08:39→21:07)
[2016-07-24] MEDS: CYANOCOBALAMIN 1,000 MCG TABLET PO SCH (08:40)
[2016-07-24] MEDS: CLOPIDOGREL BISULFATE 75 MG TABLET PO SCH (08:40)
[2016-07-24] MEDS: ASPIRIN 81 MG TABLET.DR PO SCH (08:40)
[2016-07-24] MEDS ORDERED: LISINOPRIL 20 MG TABLET PO SCH (09:00)
[2016-07-24] MEDS: LORATADINE 10 MG TABLET PO SCH (10:14)
[2016-07-24] MEDS ORDERED: MENTHOL 25 LOZENGE BAG MM PRN (10:25)
[2016-07-24] MEDS ORDERED: INSULIN GLARGINE,HUM.REC.ANLOG 100 UNITS/ML VIAL SC SCH (21:00)
[2016-07-24] MEDS ORDERED: ATORVASTATIN CALCIUM 40 MG TABLET PO SCH (21:00)
[2016-07-24] MEDS: ROSUVASTATIN CALCIUM 10 MG TABLET PO SCH (21:02)
[2016-07-24] MEDS: INSULIN GLARGINE,HUM.REC.ANLOG 100 UNITS/ML VIAL SC SCH (21:11)
[2016-07-25] MEDS: INSULIN ASPART 100 UNITS/ML VIAL SC SCH ×3 (07:20→16:45)
[2016-07-25] MEDS: LORATADINE 10 MG TABLET PO SCH (08:32)
[2016-07-25] MEDS: MULTIVITAMINS 1 CAP CAPSULE PO SCH (08:32)
[2016-07-25] MEDS: LISINOPRIL 2.5 MG TABLET PO SCH (08:32)
[2016-07-25] MEDS: CLOPIDOGREL BISULFATE 75 MG TABLET PO SCH (08:32)
[2016-07-25] MEDS: METOPROLOL TARTRATE 25 MG TABLET PO SCH ×2 (08:32→20:14)
[2016-07-25] MEDS: OMEGA-3 FATTY ACIDS 1 CAP CAPSULE PO SCH (08:32)
[2016-07-25] MEDS: CALCIUM CARBONATE 500 MG TAB.CHEW PO SCH (08:32)
[2016-07-25] MEDS: ASPIRIN 81 MG TABLET.DR PO SCH (08:32)
[2016-07-25] MEDS: CYANOCOBALAMIN 1,000 MCG TABLET PO SCH (08:33)
[2016-07-25] MEDS: ROSUVASTATIN CALCIUM 10 MG TABLET PO SCH (20:19)
[2016-07-25] MEDS: INSULIN GLARGINE,HUM.REC.ANLOG 100 UNITS/ML VIAL SC SCH (20:20)
[2016-07-26] MEDS: INSULIN ASPART 100 UNITS/ML VIAL SC SCH ×3 (07:10→17:42)
[2016-07-26] MEDS: CALCIUM CARBONATE 500 MG TAB.CHEW PO SCH (08:45)
[2016-07-26] MEDS: LISINOPRIL 2.5 MG TABLET PO SCH (08:46)
[2016-07-26] MEDS: METOPROLOL TARTRATE 25 MG TABLET PO SCH ×2 (08:46→20:49)
[2016-07-26] MEDS: OMEGA-3 FATTY ACIDS 1 CAP CAPSULE PO SCH (08:46)
[2016-07-26] MEDS: CLOPIDOGREL BISULFATE 75 MG TABLET PO SCH (08:46)
[2016-07-26] MEDS: MULTIVITAMINS 1 CAP CAPSULE PO SCH (08:46)
[2016-07-26] MEDS: ASPIRIN 81 MG TABLET.DR PO SCH (08:46)
[2016-07-26] MEDS: CYANOCOBALAMIN 1,000 MCG TABLET PO SCH (08:46)
[2016-07-26] MEDS: LORATADINE 10 MG TABLET PO SCH (08:46)
[2016-07-26] MEDS: INSULIN GLARGINE,HUM.REC.ANLOG 100 UNITS/ML VIAL SC SCH (20:45)
[2016-07-26] MEDS: ROSUVASTATIN CALCIUM 10 MG TABLET PO SCH (20:50)
[2016-07-26] MEDS: FLUTICASONE PROPIONATE 120 SPRAY INHALER NS SCH (20:50)
[2016-07-27] MEDS: INSULIN ASPART 100 UNITS/ML VIAL SC SCH ×3 (07:42→17:45)
[2016-07-27] MEDS: CLOPIDOGREL BISULFATE 75 MG TABLET PO SCH (09:57)
[2016-07-27] MEDS: OMEGA-3 FATTY ACIDS 1 CAP CAPSULE PO SCH (09:57)
[2016-07-27] MEDS: CALCIUM CARBONATE 500 MG TAB.CHEW PO SCH (09:57)
[2016-07-27] MEDS: CYANOCOBALAMIN 1,000 MCG TABLET PO SCH (10:03)
[2016-07-27] MEDS: FLUTICASONE PROPIONATE 120 SPRAY INHALER NS SCH ×2 (10:03→21:56)
[2016-07-27] MEDS: MULTIVITAMINS 1 CAP CAPSULE PO SCH (10:03)
[2016-07-27] MEDS: METOPROLOL TARTRATE 25 MG TABLET PO SCH ×2 (10:03→22:02)
[2016-07-27] MEDS: ASPIRIN 81 MG TABLET.DR PO SCH (10:03)
[2016-07-27] MEDS: LORATADINE 10 MG TABLET PO SCH (10:03)
[2016-07-27] MEDS: LISINOPRIL 2.5 MG TABLET PO SCH (10:04)
[2016-07-27] MEDS ORDERED: BENZONATATE 100 MG CAPSULE PO PRN (12:03)
[2016-07-27 17:24] LABS: Urine Bilirubin Negative (NEGATIVE); Urine Ketone Negative (NEGATIVE); Urine Nitrite Negative (NEGATIVE); Urine Protein 15 mg/dL (NEGATIVE); Urine Specific Gravity 1.015 SP.GR. (1.005-1.010); Urine Urobilinogen 4 EU/dl (NORMAL); Urine pH 7.5 pH (5.0-7.0)
[2016-07-27 17:31] LABS: Urine Blood 10 /ul (NEGATIVE)
[2016-07-27 17:32] LABS: Urine Appearance Cloudy; Urine Bacteria 2+; Urine Color Yellow; Urine RBC 0-5 /hpf (0-5); Urine WBC 25-50 /hpf (0-5)
[2016-07-27] MEDS ORDERED: ONDANSETRON 4 MG TAB.RAPDIS PO PRN (20:24)
[2016-07-27] MEDS: ROSUVASTATIN CALCIUM 10 MG TABLET PO SCH (21:56)
[2016-07-27] MEDS: INSULIN GLARGINE,HUM.REC.ANLOG 100 UNITS/ML VIAL SC SCH (22:00)
[2016-07-27] MEDS: guaiFENesin/DEXTROMETHORPHAN 118 ML BTL PO PRN (22:03)
[2016-07-27] MEDS: NITROFURANTOIN/NITROFURAN MAC 100 MG CAPSULE PO SCH (22:12)
[2016-07-28] MEDS: guaiFENesin/DEXTROMETHORPHAN 118 ML BTL PO PRN ×4 (05:04→20:49)
[2016-07-28] MEDS: INSULIN ASPART 100 UNITS/ML VIAL SC SCH ×2 (07:16→11:51)
--- NOTE | 2016-07-28 08:58 | PN ---
Subjective - Date and Time Seen Date: 07/28/16 Time: 08:54 Subjective Narrative: Patient is still coughing, mostly nonproductive. Afebrile. Objective - Review of Systems Generalized/Overall Review: Reports: Weakness. Denies: Chills, Fever Respiratory: Reports: Cough. Denies: Shortness of Breath, Orthopnea Cardiac: Denies: Chest Pain, Edema, Palpitations Abdominal: Denies: Nausea, Vomiting Genitourinary Symptoms: Denies: Urgency, Frequency - Vitals Vitals: Last Vital Signs Temp 36.9 C 07/28/16 06:21 Pulse 87 07/28/16 06:21 Resp 18 07/28/16 06:21 BP 124/55 07/28/16 06:21 Pulse Ox 92 07/28/16 06:21 - Abnormal Lab Findings Abnormal Lab Findings: Abnormal Lab Results 07/27/16 Range/Units 17:11 Urine Protein 15 H (NEGATIVE) mg/dL Urine Blood 10 H (NEGATIVE) /ul Urine Urobilinogen 4 H (NORMAL) EU/dl Ur Leukocyte Esterase 100 H (NEGATIVE) /ul Urine WBC 25-50 H (0-5) /hpf Urine Bacteria 2+ H (NONE) - Exam Constitutional: Present: Alert, Oriented x3, Cooperative ENT Exam: Present: hearing grossly normal Neck: Present: supple Respiratory: Present: chest non-tender, decreased breath sounds. Absent: No rales, No wheezing Cardiovascular/Chest: Present: no rub, JVD, irregularly irregular Abdomen: Present: Normal bowel sounds, soft, nontender, nondistended Extremity: Present: no calf tenderness, lower extremity edema Assessment/Plan - Problems/Diagnosis (1) Cough Problem: Acute Narrative: not responding to supportive measures. will get CXR, CBC, BMP. will start PPI. (2) Generalized weakness Problem: Acute (3) CVA (cerebral vascular accident) Problem: Acute Qualifiers: Laterality of affected vessel: left Narrative: continue with PT/OT. (4) A-fib Problem: Chronic (5) HTN (hypertension) Problem: Chronic Qualifiers: Hypertension type: essential hypertension Qualified Code(s): I10 - Essential (primary) hypertension (6) Acute UTI (urinary tract infection) Problem: Acute (7) NSTEMI (non-ST elevated myocardial infarction) Problem: Acute (8) Diabetes mellitus type 2 in obese Problem: Chronic (9) Hyperlipemia Problem: Chronic Qualifiers: Hyperlipidemia type: mixed hyperlipidemia Qualified Code(s): E78.2 - Mixed hyperlipidemia
[2016-07-28] MEDS: CALCIUM CARBONATE 500 MG TAB.CHEW PO SCH (09:09)
[2016-07-28] MEDS: LISINOPRIL 2.5 MG TABLET PO SCH (09:09)
[2016-07-28] MEDS: METOPROLOL TARTRATE 25 MG TABLET PO SCH ×2 (09:09→20:37)
[2016-07-28] MEDS: CYANOCOBALAMIN 1,000 MCG TABLET PO SCH (09:09)
[2016-07-28] MEDS: MULTIVITAMINS 1 CAP CAPSULE PO SCH (09:10)
[2016-07-28] MEDS: ASPIRIN 81 MG TABLET.DR PO SCH (09:10)
[2016-07-28] MEDS: FLUTICASONE PROPIONATE 120 SPRAY INHALER NS SCH ×2 (09:10→20:37)
[2016-07-28] MEDS: OMEGA-3 FATTY ACIDS 1 CAP CAPSULE PO SCH (09:10)
[2016-07-28] MEDS: CLOPIDOGREL BISULFATE 75 MG TABLET PO SCH (09:10)
[2016-07-28] MEDS: LORATADINE 10 MG TABLET PO SCH (09:10)
[2016-07-28 09:13] LABS: Hematocrit 31.9 % (37.0-47.0); Hemoglobin 10.1 gm/dL (12.5-16.0); Mean Cell Volume 85.1 fl (78-100); Mean Corpuscular Hemoglobin 26.9 pg (27-31); Mean Corpuscular Hgb Conc 31.7 g/dl (32-36); Mean Platelet Volume 9.8 fl (6.0-9.5); Neutrophil % 69.5 % (42-75.0); Platelet Count 250 K/mm3 (150-450); Red Blood Count 3.75 M/mm3 (4.2-5.4); Red Cell Distribution Width 15.9 % (11.5-14.0); White Blood Count 5.8 K/mm3 (4.0-10.5)
[2016-07-28] MEDS: NITROFURANTOIN/NITROFURAN MAC 100 MG CAPSULE PO SCH ×2 (09:14→20:37)
[2016-07-28 09:24] LABS: Anion Gap 12.6 mmol/L (6.8-13.8); Calcium * 8.8 mg/dL (7.9-10.9); Carbon Dioxide 26.4 mmol/L (24-32.6); Estimated Creat Clear 56.2
[2016-07-28] MEDS ORDERED: AZITHROMYCIN 250 MG TABLET PO ONE (12:21)
[2016-07-28] MEDS ORDERED: ALBUTEROL SULFATE/IPRATROPIUM 3 ML NEBU IH PRN (12:36)
[2016-07-28] MEDS ORDERED: INSULIN ASPART 100 UNITS/ML VIAL SC SCH (17:30)
[2016-07-28] MEDS: ROSUVASTATIN CALCIUM 10 MG TABLET PO SCH (20:37)
[2016-07-28] MEDS: INSULIN GLARGINE,HUM.REC.ANLOG 100 UNITS/ML VIAL SC SCH (20:42)
[2016-07-29] MEDS: guaiFENesin/DEXTROMETHORPHAN 118 ML BTL PO PRN ×3 (02:21→10:56)
[2016-07-29] MEDS: PANTOPRAZOLE SODIUM 20 MG TABLET.DR PO SCH (06:58)
[2016-07-29] MEDS: INSULIN ASPART 100 UNITS/ML VIAL SC SCH ×3 (07:03→17:08)
[2016-07-29] MEDS ORDERED: INSULIN ASPART 100 UNITS/ML VIAL SC SCH ×2 (07:30→11:30)
[2016-07-29] MEDS ORDERED: INSULIN GLARGINE,HUM.REC.ANLOG 100 UNITS/ML VIAL SC SCH (09:06)
[2016-07-29] MEDS: LISINOPRIL 2.5 MG TABLET PO SCH (10:23)
[2016-07-29] MEDS: AZITHROMYCIN 250 MG TABLET PO SCH (10:24)
[2016-07-29] MEDS: NITROFURANTOIN/NITROFURAN MAC 100 MG CAPSULE PO SCH ×2 (10:25→20:14)
[2016-07-29] MEDS: MULTIVITAMINS 1 CAP CAPSULE PO SCH (10:25)
[2016-07-29] MEDS: LORATADINE 10 MG TABLET PO SCH (10:25)
[2016-07-29] MEDS: CLOPIDOGREL BISULFATE 75 MG TABLET PO SCH (10:26)
[2016-07-29] MEDS: CYANOCOBALAMIN 1,000 MCG TABLET PO SCH (10:26)
[2016-07-29] MEDS: CALCIUM CARBONATE 500 MG TAB.CHEW PO SCH (10:26)
[2016-07-29] MEDS: METOPROLOL TARTRATE 25 MG TABLET PO SCH ×2 (10:27→20:14)
[2016-07-29] MEDS: OMEGA-3 FATTY ACIDS 1 CAP CAPSULE PO SCH (10:27)
[2016-07-29] MEDS: ASPIRIN 81 MG TABLET.DR PO SCH (10:27)
[2016-07-29] MEDS: FLUTICASONE PROPIONATE 120 SPRAY INHALER NS SCH ×2 (10:29→20:14)
[2016-07-29] MEDS: PROMETHAZINE HCL/CODEINE 60 ML BTL PO PRN ×2 (14:44→21:01)
[2016-07-29] MEDS: ROSUVASTATIN CALCIUM 10 MG TABLET PO SCH (20:14)
[2016-07-29] MEDS ORDERED: DEXTROSE 4 GM/TAB BTL ONE (21:40)
[2016-07-30] MEDS: guaiFENesin/DEXTROMETHORPHAN 118 ML BTL PO PRN ×3 (02:10→17:13)
[2016-07-30] MEDS: PROMETHAZINE HCL/CODEINE 60 ML BTL PO PRN ×3 (06:47→20:47)
[2016-07-30] MEDS: INSULIN ASPART 100 UNITS/ML VIAL SC SCH ×2 (07:37→11:52)
[2016-07-30] MEDS: PANTOPRAZOLE SODIUM 20 MG TABLET.DR PO SCH (07:50)
[2016-07-30] MEDS: MULTIVITAMINS 1 CAP CAPSULE PO SCH (09:01)
[2016-07-30] MEDS: ASPIRIN 81 MG TABLET.DR PO SCH (09:01)
[2016-07-30] MEDS: CYANOCOBALAMIN 1,000 MCG TABLET PO SCH (09:01)
[2016-07-30] MEDS: AZITHROMYCIN 250 MG TABLET PO SCH (09:01)
[2016-07-30] MEDS: LISINOPRIL 2.5 MG TABLET PO SCH (09:02)
[2016-07-30] MEDS: NITROFURANTOIN/NITROFURAN MAC 100 MG CAPSULE PO SCH ×2 (09:02→20:47)
[2016-07-30] MEDS: CALCIUM CARBONATE 500 MG TAB.CHEW PO SCH (09:04)
[2016-07-30] MEDS: LORATADINE 10 MG TABLET PO SCH (09:04)
[2016-07-30] MEDS: OMEGA-3 FATTY ACIDS 1 CAP CAPSULE PO SCH (09:04)
[2016-07-30] MEDS: CLOPIDOGREL BISULFATE 75 MG TABLET PO SCH (09:04)
[2016-07-30] MEDS: FLUTICASONE PROPIONATE 120 SPRAY INHALER NS SCH ×2 (09:05→20:45)
[2016-07-30] MEDS: METOPROLOL TARTRATE 25 MG TABLET PO SCH ×2 (09:05→20:46)
--- NOTE | 2016-07-30 10:41 | PN ---
Progess Note - Interim Narrative: 07/30/16 10:39 Mrs. Alegria has been having hypoglycemia in the evening prior to dinner. She remains with fasting hyperglycemia. Increase glargine to 27 units every night (~ 10% increase) and decrease prandial Humalog to 9 units with breakfast, 9 units with lunch, and 12 units w/ dinner.
[2016-07-30] MEDS ORDERED: INSULIN LISPRO 100 UNITS/ML VIAL SC SCH (10:45)
[2016-07-30] MEDS ORDERED: INSULIN ASPART 100 UNITS/ML VIAL SC SCH (17:30)
[2016-07-30] MEDS: ROSUVASTATIN CALCIUM 10 MG TABLET PO SCH (20:46)
[2016-07-30] MEDS ORDERED: INSULIN GLARGINE,HUM.REC.ANLOG 100 UNITS/ML VIAL SC SCH (21:00)
[2016-07-31 06:42] VITALS: BP 123/52
[2016-07-31] MEDS: PROMETHAZINE HCL/CODEINE 60 ML BTL PO PRN (06:48)
[2016-07-31] MEDS: PANTOPRAZOLE SODIUM 20 MG TABLET.DR PO SCH (06:48)
[2016-07-31] MEDS: INSULIN ASPART 100 UNITS/ML VIAL SC SCH ×2 (07:10→11:41)
--- NOTE | 2016-07-31 07:57 | DS ---
(1) Cough Problem: Acute (2) Generalized weakness Problem: Acute (3) CVA (cerebral vascular accident) Problem: Acute Qualifiers: Laterality of affected vessel: left (4) A-fib Problem: Chronic (5) HTN (hypertension) Problem: Chronic Qualifiers: Hypertension type: essential hypertension Qualified Code(s): I10 - Essential (primary) hypertension (6) Acute UTI (urinary tract infection) Problem: Acute (7) NSTEMI (non-ST elevated myocardial infarction) Problem: Acute (8) Diabetes mellitus type 2 in obese Problem: Chronic (9) Hyperlipemia Problem: Chronic Qualifiers: Hyperlipidemia type: mixed hyperlipidemia Qualified Code(s): E78.2 - Mixed hyperlipidemia Description of Stay: Dawna Alegria, is a 75-yr-old WF , with a PMH of A-fib, CVA, HLD & HTN who was admitted on 07/23/2016 for PT/OT. . Pt initially presented to the [facility] ER on for facial drooping, slurry speech & LT sided weakness. A head CT was completed and it revealed an acute to subacute stroke involving the LT frontal lobe. She received treatment with ASA & Plavix and was admitted under observation. An MRI was also performed and it showed that the largest area of infarct was in the LT frontal lobe. On 07/16 pt experienced nausea and vomited. An EKG was obtained and it showed STEMI on the inferior leads and ST depressions in the V1-V3. Troponin was found to be also elevated at 0.22. She did not experience any chest pain or SOB, and she remained hemodynamically stable during the episode. She was then transferred to the [facility] under Cardiology service for higher level of care. During the hospital course at the [facility], A TTE was completed initially and it did not show any myocardial wall motion abnormalities. She was medically managed with Heparin ( 48 hours) and Aspirin. Repeat Echocardiogram on 07/21/16 showed lateral wall motion abnormality. PET myocardial perfusion scan was done and it revealed a fixed defect in the inferolateral wall consistent with CAD. Angiography was not pursued due to the fixed nature of the defect. On 07/17, the LT sided weakness worsened and neurology was re-consulted. A repeat CT scan showed stable LT frontal Stroke. Aspirin was continued. On 07/18, she developed LT distal hand weakness and an MRI of the brain obtained revealed new stroke in the RT hemisphere. Dual antiplatelet therapy with Plavix and Aspirin & Atorvastatin was continued. Off note, she also developed A-fib on 07/20 and neurology recommended waiting 2 weeks after her stroke to start the Anticoagulation, but in the meantime, antiplatelet therapy was to be continued. She was discharged from the [facility] on 07/23/16 and transferred to the [facility]- Skilled placement for continued strengthening with PT/OT due to increased weakness, decreased activity tolerance & motivation. She has been working working with PT/OT. She was started on oral antihistmanic for her cough. CXR showed no pneumonia. Zapc was also given and PPI added incase this was due to reflux. It has improved . She is stable to be discharged today but needs to continue with her PT/OT at home. Procedures Performed: none Discharge Disposition: Home self care Disposition: Home self-care Condition: Fair Discharge Activity: Activity as tolerated Discharge Diet: Consistent carbs, Low fat/chol Additional Patient Instructions (free text): Continue [facility] Home Health at discharge, please call and fax discharge information to them. Follow up with PCP in 2 weeks. Prescriptions (Any new or edited meds): Azithromycin [Zithromax] 250 mg PO DAILY #2 tablet Fluticasone Propionate [Flonase] 1 spray NS BID #1 inhaler Insulin Aspart [Novolog] 12 units SC DAILY@1730 #5 vial Insulin Aspart [Novolog] 9 units SC BID@0730,1200 #5 vial Insulin Glargine,Hum.rec.anlog [Lantus] 27 units SC HS #5 vial Loratadine [Claritin] 10 mg PO DAILY #30 tablet Menthol [[place] Cough Drops] 1 lozenge MM PRN PRN #14 bag PRN Reason: Cough Nitrofurantoin/Nitrofuran Mac [Macrobid] 100 mg PO BID #6 capsule Pantoprazole Sodium [Protonix] 20 mg PO DAILY@0700 #30 tablet. Promethazine HCl/Codeine [Phenergan W/Codeine Syrup] 5 ml PO Q6H PRN #120 btl PRN Reason: Cough Warfarin Sodium [Coumadin] 5 mg PO DAILY #30 tablet Complete Home Medications List: Complete Home Medication List: Lisinopril [Zestril] 2.5 mg PO DAILY 12/16/12 Multivitamins [Multivitamin Natasha] 1 cap PO DAILY 12/08/16 metFORMIN HCL [Glucophage] 1,000 mg PO BIDWM 04/09/16 Aspirin [Aspirin EC] 81 mg PO DAILY 07/15/16 Atorvastatin Calcium 40 mg PO HS 07/23/16 Calcium Carbonate 650 mg PO DAILY 07/23/16 Clopidogrel Bisulfate [Plavix] 75 mg PO DAILY 07/23/16 Cyanocobalamin (Vitamin B-12) [B-12] 1,000 mcg PO DAILY 07/23/16 HYDROcodone/ACETAMINOPHEN [Lorcet 5-325 mg Tablet] 1 each PO BID PRN 07/23/16 Metoprolol Tartrate [Lopressor] 12.5 mg PO BID 07/23/16 Azithromycin [Zithromax] 250 mg PO DAILY #2 tablet 07/31/16 Fluticasone Propionate [Flonase] 1 spray NS BID #1 inhaler 07/31/16 Insulin Aspart [Novolog] 9 units SC BID@0730,1200 #5 vial 07/31/16 Insulin Aspart [Novolog] 12 units SC DAILY@1730 #5 vial 07/31/16 Insulin Glargine,Hum.rec.anlog [Lantus] 27 units SC HS #5 vial 07/31/16 Loratadine [Claritin] 10 mg PO DAILY #30 tablet 07/31/16 Menthol [[place] Cough Drops] 1 lozenge MM PRN PRN #14 bag 07/31/16 Nitrofurantoin/Nitrofuran Mac [Macrobid] 100 mg PO BID #6 capsule 07/31/16 Pantoprazole Sodium [Protonix] 20 mg PO DAILY@0700 #30 tablet. 07/31/16 Promethazine HCl/Codeine [Phenergan W/Codeine Syrup] 5 ml PO Q6H PRN #120 btl Warfarin Sodium [Coumadin] 5 mg PO DAILY #30 tablet 07/31/16 Amb Orders for Discharge: Prothrombin Time Time Frame: 08/03/16, Location: Determined By Patient
[2016-07-31 08:21] LABS: Hematocrit 31.1 % (37.0-47.0); Hemoglobin 9.8 gm/dL (12.5-16.0); Mean Corpuscular Hemoglobin 26.8 pg (27-31); Mean Corpuscular Hgb Conc 31.5 g/dl (32-36); Mean Platelet Volume 9.4 fl (6.0-9.5); Neutrophil # 4.1 K/mm3 (1.3-6.0); Neutrophil % 65.1 % (42-75.0); Platelet Count 265 K/mm3 (150-450); Red Blood Count 3.66 M/mm3 (4.2-5.4); Red Cell Distribution Width 15.7 % (11.5-14.0); White Blood Count 6.2 K/mm3 (4.0-10.5)
[2016-07-31 08:31] LABS: Prothrombin Time (Patient) 11.7 Seconds (9.4-11.4)
[2016-07-31 08:33] LABS: INR 1.13 INR (0.90-1.10)
[2016-07-31 08:36] LABS: Anion Gap 11.8 mmol/L (6.8-13.8); BUN/Creatinine Ratio 25.6 (9.0-21.6); Calcium * 8.6 mg/dL (7.9-10.9); Carbon Dioxide 29.4 mmol/L (24-32.6); Estimated Creat Clear 50.6; Potassium 4.2 mmol/L (3.4-4.6)
[2016-07-31] MEDS: LORATADINE 10 MG TABLET PO SCH (08:45)
[2016-07-31] MEDS: FLUTICASONE PROPIONATE 120 SPRAY INHALER NS SCH (08:45)
[2016-07-31] MEDS: ASPIRIN 81 MG TABLET.DR PO SCH (08:45)
[2016-07-31] MEDS: MULTIVITAMINS 1 CAP CAPSULE PO SCH (08:46)
[2016-07-31] MEDS: CLOPIDOGREL BISULFATE 75 MG TABLET PO SCH (08:46)
[2016-07-31] MEDS: NITROFURANTOIN/NITROFURAN MAC 100 MG CAPSULE PO SCH (08:46)
[2016-07-31] MEDS: METOPROLOL TARTRATE 25 MG TABLET PO SCH (08:46)
[2016-07-31] MEDS: CALCIUM CARBONATE 500 MG TAB.CHEW PO SCH (08:46)
[2016-07-31] MEDS: OMEGA-3 FATTY ACIDS 1 CAP CAPSULE PO SCH (08:46)
[2016-07-31] MEDS: LISINOPRIL 2.5 MG TABLET PO SCH (08:47)
[2016-07-31] MEDS: AZITHROMYCIN 250 MG TABLET PO SCH (08:47)
[2016-07-31] MEDS: CYANOCOBALAMIN 1,000 MCG TABLET PO SCH (08:47)
[2016-07-31] MEDS: guaiFENesin/DEXTROMETHORPHAN 118 ML BTL PO PRN (08:49)
== END 2016-07-31 12:59 | disposition home health service (06) | DRG 57 ==
LOC: MS 17:29 → UNDOADMIN 17:29
PROVIDERS: ADMIT Internal Medicine; ATTEND Internal Medicine
DX: I69.351 Hemiplegia and hemiparesis following cerebral infarction affecting right dominant side (principal); I48.91 Unspecified atrial fibrillation; E78.2 Mixed hyperlipidemia; I10 Essential (primary) hypertension; E11.9 Type 2 diabetes mellitus without complications; I25.10 Atherosclerotic heart disease of native coronary artery without angina pectoris; I25.2 Old myocardial infarction; Z79.01 Long term (current) use of anticoagulants; Z79.02 Long term (current) use of antithrombotics/antiplatelets; Z79.82 Long term (current) use of aspirin; Z79.4 Long term (current) use of insulin

== ENCOUNTER 2016-08-04 06:37 | Emergency (ER) | payer MEDICARE ==
--- NOTE | 2016-08-04 06:52 | ERNOTE ---
Neuro HPI ER Record Presenting Symptoms: weakness, numbness, facial droop Time Seen by Provider: 08/04/16 06:43 Source: family Exam Limitations: clinical condition Immunizations: IMMUNIZATION HX Immunizations Up to Date Yes History of Influenza Vaccine Yes Hx Pneumococcal Vaccination No Allergies/Adverse Reactions: Allergies Allergy/AdvReac Type Severity Reaction Status Date / Time No Known Allergies Allergy Verified 08/04/16 06:58 Home Medications: HOME MEDICATIONS Lisinopril [Zestril] 2.5 mg PO DAILY 12/16/12 [Last Taken 05/19/16] Multivitamins [Multivitamin Natasha] 1 cap PO DAILY 04/09/16 [Last Taken 05/19/16 ] metFORMIN HCL [Glucophage] 1,000 mg PO BIDWM 04/09/16 [Last Taken 05/19/16] Aspirin [Aspirin EC] 81 mg PO DAILY 07/15/16 [Last Taken Unknown] Atorvastatin Calcium 40 mg PO HS 07/23/16 [Last Taken Unknown] Calcium Carbonate 650 mg PO DAILY 07/23/16 [Last Taken Unknown] Clopidogrel Bisulfate [Plavix] 75 mg PO DAILY 07/23/16 [Last Taken Unknown] Cyanocobalamin (Vitamin B-12) [B-12] 1,000 mcg PO DAILY 07/23/16 [Last Taken Unknown] HYDROcodone/ACETAMINOPHEN [Lorcet 5-325 mg Tablet] 1 each PO BID PRN 07/23/16 [ Last Taken Unknown] Metoprolol Tartrate [Lopressor] 12.5 mg PO BID 07/23/16 [Last Taken Unknown] Azithromycin [Zithromax] 250 mg PO DAILY #2 tablet 07/31/16 [Last Taken Unknown] Fluticasone Propionate [Flonase] 1 spray NS BID #1 inhaler 07/31/16 [Last Taken Unknown] Insulin Aspart [Novolog] 9 units SC BID@0730,1200 #5 vial 07/31/16 [Last Taken Unknown] Insulin Aspart [Novolog] 12 units SC DAILY@1730 #5 vial 07/31/16 [Last Taken Unknown] Insulin Glargine,Hum.rec.anlog [Lantus] 27 units SC HS #5 vial 07/31/16 [Last Taken Unknown] Loratadine [Claritin] 10 mg PO DAILY #30 tablet 07/31/16 [Last Taken Unknown] Menthol [[place] Cough Drops] 1 lozenge MM PRN PRN #14 bag 07/31/16 [Last Taken Unknown] Nitrofurantoin/Nitrofuran Mac [Macrobid] 100 mg PO BID #6 capsule 07/31/16 [ Last Taken Unknown] Pantoprazole Sodium [Protonix] 20 mg PO DAILY@0700 #30 tablet. 07/31/16 [Last Taken Unknown] Promethazine HCl/Codeine [Phenergan W/Codeine Syrup] 5 ml PO Q6H PRN #120 btl [Last Taken Unknown] Warfarin Sodium [Coumadin] 5 mg PO DAILY #30 tablet 07/31/16 [Last Taken Unknown ] - History of Present Illness Narrative: Pt was up at 04:30 to use the bathroom and was at her current baseline. When her tried to get her up at 06:00 she was unable to walk or talk. Had CVA approx 2 weeks ago and recently discharged from swing bed. Last Date Known Well: 08/04/16 Last Time Known Well: 04:30 Onset: sudden onset, continues in ER Severity: moderate - Character of Deficits New weakness: Present: LUE, LLE, facial (lt) Altered sensation: Present: LUE, LLE, facial (lt) Additional Deficits: Present: impaired speech Baseline Cognition: Present: alert, oriented x 4 Baseline Gait: Present: walks only w/ assistance Prior Treament: Reports: recently seen, treated by physician, recently hospitalized Review of Systems - Review of Systems Constitutional: Present: no symptoms reported EYE: Present: no symptoms reported ENT: Present: no symptoms reported Respiratory: Present: no symptoms reported Cardiology: Present: no symptoms reported Gastrointestinal/Abdominal: Present: no symptoms reported Genitourinary: Present: no symptoms reported Musculoskeletal: Present: See HPI Skin: Present: no symptoms reported Neurological: Present: See HPI, pre-existing deficit - was improving and was not as severe as today at its worst Endocrine: Present: no symptoms reported Hematologic/Lymphatic: Present: no symptoms reported Psych: Present: no symptoms reported - Patient's Past Medical History Patient History - Medical: Diabetes Type 2 Insulin Dependent Patient History - Cardiac/Respiratory: CVA/Stroke, Hypertension, Hyperlipidemia , Myocardial Infarction Patient History - Cancer: No Hx of Cancer Patient History - Surgical Procedures: Cataracts, D & C, Other Patient History - Other: None - Family History Mother Family History - Medical: Family History - Cardiac/Respiratory: Myocardial Infarction Father Family History - Medical: Family History - Cardiac/Respiratory: Myocardial Infarction - Social History Living Situations: spouse Abuse History: No History of abuse Psych History: No pertinent hx Alcohol Use: occasionally Drug Use: none - Immunizations Immunizations Up to Date: Yes Hx Pneumococcal Vaccination: No History of Influenza Vaccine: Yes Physical Exam - Physical Exam General Appearance: Present: wd/wn, alert Eye Exam: Abnormal EOM: bilateral - deviation to right Ears, Nose, Throat: Present: normal ENT inspection Neck: Present: normal inspection Respiratory: Present: no respiratory distress, lungs clear Cardiovascular/Chest: Present: irregularly irregular Back Exam: Present: normal inspection Extremity Exam: Present: non-tender Neurological Exam: Present: alert, facial droop - left severe, motor weakness - left arm and leg severe Skin Exam: Present: normal color, warm/dry Sukhjinder Coma Scale - Assess Eye Opening: Spontaneous Motor: Obeys Commands Verbal: Confused - Total Coma Scale Total: 14 Initial Stroke Assessment - NIH Stroke Scale Level of Consciousness: Drowsy LOC Questions (Year and Age): Answers one correctly LOC Commands (open/close eyes/fist): Performs one correctly Lateral Gaze Paresis: Forced gaze paresis Visual Field Loss: Partial hemianopsia Facial Palsy: Partial facial paralysis Right Arm Motor (10 sec hold): No drift Left Arm Motor (10 sec hold): No effort, limb falls Right Leg Motor (5 sec hold): No drift Left Leg Motor (5 sec hold): No effort, limb falls Limb Ataxia (finger/nose heel/godinez): Present in 1 limb If present, ataxia in:: Left arm, Left leg Sensory Loss (pinprick arms/legs/face): Severe to total loss Language Aphasia (description/naming/reading): Severe not understandable Dysarthria (speech clarity): Slurring, unintelligble Neglect Inattention (visual/tactile/auditory/spatial/person): Partial neglect Initial Stroke Scale Score:: 22 Stroke Inclusion/Exclusion Cri - Exclusion Questions: Major symptoms rapidly improving: No Seizure at onset of stroke: No SBP>185; DBP>110 at time treatment is to begin: No Patient received Heparin or Coumadin within 48 hours: No Patient has elevated PTT or Protime/INR: Yes Stroke, head injury, major surgery, serious trauma in 3 mon.: Yes Previous intracranial hemmorhage: Yes Recent CO: Yes Known AV malformation or aneurysm: No Blood glucose <50mg/dl or >400mg/dl: No NIHSS Score <4 or >22 performed by physician: Yes ED Progress - Results and Orders Patient's Lab Results:: I have reviewed the patient's lab results. Results and Orders: Laboratory Tests 08/04/16 08/04/16 08/04/16 07:00 07:00 07:00 WBC 7.0 Hgb 10.2 L Hct 32.7 L PT 12.4 H INR (Anticoag Therapy) 1.19 H PTT (Laura) 24.2 Sodium 139 Potassium 3.7 Chloride 102 Carbon Dioxide 28.6 Anion Gap 12.1 BUN 18 Creatinine 0.75 Est GFR (Non-Af Amer) 80 D BUN/Creatinine Ratio 24.0 H Random Glucose 140 H Calcium 8.6 Calcium Adj for Albumin 9.1 Total Bilirubin 0.8 AST 22 ALT 15 L Alkaline Phosphatase 74 Troponin I 0.127 H* Total Protein 7.0 Albumin 3.0 L - Vital Signs Patient's Vital Signs:: I have reviewed the patient's vital signs. - EKG EKG: atrial fibrillation, nonspecific ST T wave changes EKG read: Interp. by me - Progress/Reassessment Progress:: Unchanged Progress Note-Subjective: 08/04/16 07:37 Spoke with [facility] stroke team. They agree to accept the patient in transfer to evaluate for thrombectomy. She would not be a candidate for TpA due to recent CVA with hemorrhage. 08/04/16 07:49 Unable to secure air transport due to weather. [facility] ambulance called for emergent transport. - Transfer of Care Physician Sign Out: Gee Palomo Receiving Physician: Arlyn Conroy - awaiting transfer Expected Disposition: Transfer Departure Clinical Impression: CVA (cerebral vascular accident) Qualifiers: CVA mechanism: embolism Precerebral and cerebral artery: middle cerebral artery Laterality of affected vessel: right Qualified Code(s): I63.411 - Cerebral infarction due to embolism of right middle cerebral artery - Departure Disposition: [facility] Condition: Critical
[2016-08-04 07:03] LABS: Hematocrit 32.7 % (37.0-47.0); Hemoglobin 10.2 gm/dL (12.5-16.0); Mean Cell Volume 84.9 fl (78-100); Mean Corpuscular Hemoglobin 26.5 pg (27-31); Mean Corpuscular Hgb Conc 31.2 g/dl (32-36); Mean Platelet Volume 9.4 fl (6.0-9.5); Neutrophil # 4.3 K/mm3 (1.3-6.0); Neutrophil % 61.4 % (42-75.0); Platelet Count 259 K/mm3 (150-450); Red Blood Count 3.85 M/mm3 (4.2-5.4); Red Cell Distribution Width 15.6 % (11.5-14.0)
[2016-08-04 07:13] LABS: Prothrombin Time (Patient) 12.4 Seconds (9.4-11.4)
[2016-08-04 07:20] LABS: INR 1.19 INR (0.90-1.10); Partial Thrombolplastin Time 24.2 Seconds (24-32)
[2016-08-04 07:21] LABS: Anion Gap 12.1 mmol/L (6.8-13.8); Bilirubin, Total 0.8 mg/dL (0.0-1.1); Ca. Corrected For Albumin 9.1 mg/dL (8.4-10.2); Calcium * 8.6 mg/dL (7.9-10.9); Carbon Dioxide 28.6 mmol/L (24-32.6); Potassium 3.7 mmol/L (3.4-4.6)
[2016-08-04 07:24] LABS: Troponin I 0.127 ng/ml (0.00-0.10)
--- OUTSIDE RECORDS SUMMARY | 2016-08-04 07:33 | XMS REPORT | Continuity of Care Document ---
:1940 Author Organization [facility] ([facility]) Address [address] [place] [address] Phone [phone] Care Team Providers Name Role Phone Farida Dill Primary Care Provider [phone] Source Comments This disclosure is being made pursuant to the Care Everywhere program, applicable federal and state laws, and may not contain all informaitonavailable regarding this patient.[facility] ([facility]) Active Allergies and Adverse Reactions No Known Allergies Current Medications Prescription Sig. Disp. Refills Start End Date Status Date metFORMIN 500 mg Take 1,000 mg by Active tablet mouth 2 times daily with meals. aspirin 81 mg Take 81 mg by Active chewable tablet mouth daily. CYANOCOBALAMIN Take 1 tablet by Active [...] nophen 5-325 mg per mouth 2 times tablet daily as needed. atorvastatin 40 mg Take 1 tablet (40 30 tablet 0 Active tablet mg total) by mouth 7 every evening. clopidogrel 75 mg Take 1 tablet (75 30 tablet 0 Active tablet mg total) by mouth 7 daily. insulin glargine Inject 22 Units 10 mL 11 Active (LanTUS) 100 subcutaneously at 7 unit/mL injection bedtime. vial NOVOLOG 100 unit/mL Inject 15 Units 10 mL 0 Active injection vial subcutaneously 3 7 times daily before meals. Take 15 units with breakfast and lunch, 14 units with dinner lisinopril 2.5 mg Take 1 tablet (2.5 30 tablet 0 Active tablet mg total) by mouth 7 daily. metoPROLol tartrate Take 0.5 tablets 60 tablet 0 Active 25 mg tablet (12.5 mg total) by 7 mouth every 12 hours. insulin glargine Inject 33 Units 07/24/19 Discontinued (LanTUS) 100 subcutaneously at 17 unit/mL injection bedtime. vial glipiZIDE 5 mg Take 5 mg by mouth 07/24/19 Discontinued tablet daily. 17 lisinopril 20 mg Take 20 mg by 07/24/19 Discontinued tablet mouth daily. 17 simvastatin 20 mg Take 20 mg by 07/24/19 Discontinued tablet mouth every 17 evening. naproxen sodium Take 220 mg by 07/24/19 Discontinued (ALEVE) 220 mg mouth 2 times 17 tablet daily. Active Problems Problem Noted Date Morbid obesity 07/21/2016 PFO (patent foramen ovale) 07/18/2016 Abnormal EKG 07/16/2016 Essential hypertension 07/16/2016 Type 2 diabetes mellitus 07/16/2016 CVA (cerebral vascular accident) 07/16/2016 HLD (hyperlipidemia) 07/16/2016 Resolved Problems Problem Noted Date Resolved Date ST elevation myocardial infarction (STEMI) of 07/16/2016 07/23/2016 inferoposterior wall, initial episode of care Most Recent Encounters Date Type Specialty Providers Description 08/04/2016 Hospital Patient Services Encounter 07/20/2016 [facility] Doroteo, Chief Comp: Patient Encounter MD Jannie Reported Reason For [place], Visit MD Zoraida Sen Phillip G Jr., Natan Hernández MD 07/17/2016 [facility] Oswaldo, Chief Comp: Patient Encounter MD All Reported Reason For Doroteo, Nixon Valderrama MD 07/17/2016 [facility] [place]o, Chief Comp: Patient Encounter MD Jannie Reported Reason For Oswaldo, Visit MD All 07/17/2016 [facility] Doroteo, Chief Comp: Patient Encounter MD Jannie Reported Reason For Visit 07/17/2016 [facility] Doroteo, Chief Comp: Patient Encounter MD Jannie Reported Reason For Oswaldo, Visit MD All 07/17/2016 Hospital Heart and Vascular Oswaldo, Chief Comp: Patient Encounter MD All Reported Reason For Doroteo, Visit MD Jannie 07/16/2016 [facility] Doroteo, Chief Comp: Patient Encounter MD Jannie Reported Reason For Visit 07/16/2016 [facility] Radiology Cheyanne Pulliam, Chief Comp: Patient Encounter MD Reported Reason For Visit 07/16/2016 - [facility] General Care Doroteo, Dx: Ischemic 07/23/2016 Encounter Inpatient - Adult MD Jannie cerebrovascular [place], accident (CVA) of Gal Loera MD frontal lobe (Primary [place]had[place], Usman, Dx) MD Alcantar, Jacque, MD Juan, Glendy Ernst MD 07/16/2016 Surgery Cardiology Demetroulis, [...] Reported Reason For [address] [place] [address] [phone] (Fax) Health Maintenance Due Date Last Done Comments Hepatitis B Vaccine (1 of 3 - Primary Series) 1940 Tdap Vaccine 09/25/1951 DIABETIC: Microalbumin 1958 Td Vaccine 1958 Mammogram 1980 Colonoscopy 1990 Zoster Vaccine 2000 Osteoporosis Screening (DXA Bone Density) 2005 Pneumococcal Vaccine (1 of 2 - PCV13) 2005 DIABETIC: Foot Exam 07/16/2016 DIABETIC: Retinal Eye Exam 07/16/2016 DIABETIC: Hemoglobin A1C 01/20/2017 07/20/2016 DIABETIC: Cholesterol 07/16/2017 07/16/2016 Diabetic: Hdl 07/16/2017 07/16/2016 Diabetic: Ldl 07/16/2017 07/16/2016 DIABETIC: Triglycerides 07/16/2017 07/16/2016 Influenza Vaccine: Seasonal Completed Results from Last 3 Months BLOOD GLUCOSE, [...] PET PHARMACOLOGIC STRESS ECG, STAFF OR SAURAV ([id number]) (07/21/2016 3:02 PM)PET MYOCARDIAL PERFUSION REST& STRESS (22031) (07/21/2016 3:02 PM) Impressions Impression: 1. Abnormal stress myocardial perfusion. Large and severe predominantly fixed perfusion defect in inferolateral wall consistent with obstructive coronary artery disease; a small region of partial reversibility in distal inferolateral wall is noted, which may represent guillermina-infarct ischemia. 2. LVEF=56%. 3. ECG interpretation is reported separately. Contact: Findings were communicated with Dr. Niki Quiros (pager #[phone]) at 0148 hrs on 07/21/2016. Narrative Procedure: PET MYOCARDIAL PERFUSION REST & STRESS ([id number]) Indication: Pt admitted with CVA and AL, Evaluate for ischemia; 75 years old Female. [...] Procedure: PET MYOCARDIAL PERFUSION REST & STRESS ([id number]) Indication: Pt admitted with CVA and AL, Evaluate for ischemia; 75 years old Female. [...] were communicated with Dr. Niki Quiros (pager #[phone]) at 1755 hrs on 07/21/2016. TROPONIN T (07/21/2016 3:47 AM)Only the most recent of9 resultswithin the time period is included. Component Value Range Troponin-T 2.68(H) <=0.10 ng/mL Specimen Blood US NECK/THYROID ([id number]) (07/20/2016 3:43 PM) Impressions Impression: 1. Two subcentimeter right thyroid nodules, one cystic with septations, the other hypoechoic. Both nodules are too small to biopsy. Suggest ultrasound follow-up in 6-12 months. --- Final --- Narrative [facility] Department of Radiology Ultrasound Division [place] [address] ULTRASOUND REPORT NAME:DAWNA KLINE Date of Service: 07/20/2016 MRN NO.: [id number] Review Date: 07/20/2016 Patient's : 1941Resident/Tech: [id number] [...] WedJul 20, 2016 4:33 PM CDT [facility] Department of Radiology Ultrasound Division [address] [place] [address] ULTRASOUND REPORT NAME: DAWNA KLINE Date of Service: 07/20/2016 MRN NO.: [id number] Review Date: 07/20/2016 Patient's : 1940 Resident/Tech: [...] is no pericardial effusion. Procedures Limited 2D ([id number]) Inf. Vena Cava (IVC) / Pulm. Veins The IVC appears enlarged (visual estimate) . LVAd ap4 20.6 cm^2 EF(MOD-sp4) 51.4 % Low Range of LVEF 50 High Range of LVEF 55 Reason For Study Eval for effusion and regional WMA Professor Of Sociology Clara Hartmann Interpreting Physician Natan Reece MD [...] Specimen Whole Blood MRI BRAIN WO CONTRAST ([id number]) (07/18/2016 11:49 PM) Impressions Impression: 1. New infarct right frontal lobe involving the precentral gyrus, likely embolic in nature. 2. Additional known subacute infarcts are identified. The known subacute left frontal lobe infarct shows associated petechial hemorrhage. Results of the procedure were given to: PERSON CONTACTED:Renardlolihue YasmeenBonilla DATE: 07/19/2016 TIME CALLED:1220 PHONE/PAGER:[phone] This final report is in agreement with the critical and emergent preliminary findings reported by the resident care technician continuous improvement manager. The preliminary report by the resident care technician continuous improvement manager did not include non emergent findings of petechial hemorrhage as opposed to macroscopic hemorrhagic transformation along the subacute left frontal lobe infarct which was added to the final report. Narrative Procedure: MRI BRAIN WO CONTRAST ([id number]) Indication: Concern for new CVA given worsening [...] Procedure Note Suleman, Incoming Imaging Results - Sun Jul 19, 2016 11:08 AM CDT Procedure: MRI BRAIN WO CONTRAST ([id number]) Indication: Concern for new CVA given worsening [...] the procedure were given to: PERSON CONTACTED: Imelda Carter DATE: 07/19/2016 TIME CALLED: 1220 PHONE/PAGER: [phone] This final report is in agreement with the critical and emergent preliminary findings reported by the resident care technician continuous improvement manager. The preliminary report by the resident care technician continuous improvement manager did not include non emergent findings of petechial hemorrhage as opposed to macroscopic hemorrhagic transformation along the subacute left frontal lobe infarct which was added to the final report. MAGNESIUM (07/18/2016 4:52 AM)Only the most recent of3 resultswithin the time period is included. Component Value Range Magnesium 1.7 1.5-2.9 mg/dL Specimen Blood CT BRAIN WO CONTRAST ([id number]) (07/17/2016 10:30 PM) Impressions Impression: 1. Expected evolution of hemorrhagic infarct in the left anterior frontal lobe without increased hemorrhagic component. 2. Expected evolution of infarct in the right posterior frontal lobe. No significant mass effect. This final report is in agreement with the critical and emergent preliminary findings reported by the resident care technician continuous improvement manager. Narrative Procedure: CT BRAIN WO CONTRAST ([id number]) Indication: confusion; recent ICH Technique: Axial CT [...] AM CDT Procedure: CT BRAIN WO CONTRAST ([id number]) Indication: confusion; recent ICH Technique: Axial CT [...] and emergent preliminary findings reported by the resident care technician continuous improvement manager. CT ANGIO HEAD& NECK W/WO ([id number], 79772) (07/17/2016 5:14 PM) Impressions Impression: 1. 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 2. Right thyroid nodule can be better evaluated with ultrasound if clinically indicated. This final report is in essential agreement with the critical and emergent preliminary findings reported by the resident care technician continuous improvement manager. The vertebral artery findings were discussed with Dr. Elizabeth following patient at pager [phone] at 0934 hours on July 18, 2016. Narrative Procedure: CT ANGIO HEAD & NECK W/WO ([id number], [id number]) Indication: Ischemic cerebrovascular accident (CVA) of frontal lobe Exam: Axial CT angiogram of the neck and [place] after the uneventful administration of [...] Procedure: CT ANGIO HEAD & NECK W/WO ([id number], 61241) Indication: Ischemic cerebrovascular accident (CVA) of frontal lobe Exam: Axial CT angiogram of the neck and [place] after the uneventful administration of [...] and emergent preliminary findings reported by the resident care technician continuous improvement manager. The vertebral artery findings were discussed with [...] Location: Patient room Description of Procedure The felt cutting machine operator performed proper hand hygiene and utilized [...] [employer] PICC SOLO catheter (Lot number [id number]) was inserted into the tear-away sheath.Blood was [...] behind the left atrial appendage. Procedures MARGARITA ([id number]) Doppler ([id number]) Saline bubble study ([id number]) Informed consent was obtained after thorough explanation of the procedure, risks and benefits, with time allowed for the patient or patient insurance claim representative's concerns and questions Pre-procedure ASA Category III PreProcedure NX=847/53 mmHg. PreProcedure HR=70 bpm Pre Procedure O2 Sat=95 %. Pre Procedure RR=20 per min. BSA=2.12 m^2. MARGARITA probe inserted proceeded without difficulty or apparent complications. MARGARITA scope number 004 utilized for this exam. Post Procedure OO=763/59 mmHg. Post Procedure HR=75 bpm Post Procedure O2 Mfq=273 %. Post Procedure RR=29 per min. Versed [...] of LVEF 60 Reason For Study CVA/TIA Professor Of Sociology Cee Humphrey Interpreting Physician Chao Dunne electronically [...] mg/dL High: 200-499 mg/dL Very high: > rr=388 mg/dL HDL Cholesterol 68 >=41 mg/dL LDL - Calculated 58 <=130 mg/dL Non-HDL Cholesterol (Calc) 71Comment: mg/dL The reference ranges for Non-HDL-C are based on National Cholesterol Education III guidelines: Desirable: <130 mg/dL Borderline High: 130-159 mg/dL High:160-189 mg/dL Very High: > cg=967 mg/dL Specimen Blood POTASSIUM (07/16/2016 9:28 PM)Only the most recent of2 resultswithin the time period is included. Component Value Range Potassium 4.6 3.5-5.0 mEq/L Specimen Blood Narrative This sample was misidentified to the patient care area. Cori Pacheco , CLP#[id number] authorized Moni Oropeza to reconcile the error [...] is not visualized Pericardium/Pleura Trivial pericardial effusion. Professor Of Sociology Alvin Rogel Interpreting Physician Chao Dunne electronically signed on 2016-07-17 08:02:43.993 EXTERNAL MRI-STORE& INTERPRET (07/16/2016 6:25 PM) Impressions Impression: 1. Acute, ischemic infarctions in the right frontal lobe suggestive of embolic insults. 2. Infarction in the left anterior frontal lobe with hemorrhagic transformation. Narrative Outside MRI was performed at 0848 hours on 07/16/2016 at [facility]. 202 images are provided and interpreted on [...] performed at 0848 hours on 07/16/2016 at [facility]. 202 images are provided and interpreted on [...] performed at 1515 hours on 07/16/2016 at [facility]. 33 images are provided and interpreted on [...] performed at 1515 hours on 07/16/2016 at [facility]. 33 images are provided and interpreted on [...]
[2016-08-04 08:39] VITALS: BP 164/77
--- NOTE | 2016-08-04 08:53 | OR ---
Anesthesia Procedure Note - Anesthesia Procedure Note Date of Service: 08/04/16 Narrative: Vital Signs - Last Taken Temp 36.3 C L 08/04/16 08:38 Pulse 83 08/04/16 08:38 Resp 22 H 08/04/16 08:38 BP 164/77 08/04/16 08:38 Pulse Ox 95 08/04/16 08:38 O2 Oxygen Delivery Method Nasal Cannula 08/04/16 08:51 ANESTHESIA PROCEDURE NOTE Date of Procedure: 08/04/2016. Time of procedure: 0800. Performed by: Stanley Hawkins CRNA Polygraph Operator: None. Preprocedure diagnosis: Difficult IV access. Post procedure diagnosis: Same. Procedure: Sound guided peripheral vein IV insertion. Indications: This is a 75-year-old with female with a CVA diagnosis, who is in need of an 18-gauge peripheral IV. Findings: See below. Details of the procedure: Skin over the intended target site was cleansed with alcohol. Under ultrasound guidance a 18-gauge IV catheter was inserted into a left cephalic. A sterile dressing was applied over the insertion site. The line was then flushed with sterile saline solution X3. EBL: Minimal. Fluids: N/A. Specimen: N/A. Post procedure condition: The patient tolerated the procedure well. No complications were noted. Thank you for this consultation. Stanley Hawkins CRNA
== END 2016-08-04 08:39 | disposition short-term general hospital (02) ==
LOC: ER 06:37
DX: I63.411 Cerebral infarction due to embolism of right middle cerebral artery (principal)

== ENCOUNTER 2020-01-16 12:57 | Inpatient (IN) ==
--- NOTE | 2020-01-16 13:20 | ERNOTE ---
Medical Problem HPI - General Chief Complaint: Fever Time Seen by Provider: 01/16/20 12:57 Source: halfway records Exam Limitations: clinical condition - Immun/Allergies/Home Medications Immunizations: IMMUNIZATION HX Immunizations Up to Date Yes History of Influenza Vaccine Yes Hx Pneumococcal Vaccination No Allergies/Adverse Reactions: Allergies adhesive tape Adverse Reaction (Intermediate, Verified 06/28/19 12:08) Home Medications: HOME MEDICATIONS Acetaminophen 650 mg PO Q6H PRN 08/11/17 [Last Taken Unknown] Atorvastatin Calcium 40 mg PO DAILY 08/11/17 [Last Taken Unknown] Bisacodyl 2 tab PO DAILY 08/11/17 [Last Taken Unknown] Bisacodyl [Dulcolax Suppository] 10 mg RC DAILY PRN 08/11/17 [Last Taken Unknown] Gabapentin 400 mg PO HS 08/11/17 [Last Taken Unknown] Insulin Aspart [Novolog] See Protocol SC TID 08/11/17 [Last Taken Unknown] Lisinopril [Zestril] 2.5 mg PO DAILY 08/11/17 [Last Taken Unknown] Polyethylene Glycol 3350 [Miralax] 17 gm PO DAILY 08/11/17 [Last Taken Unknown] Sennosides [Senokot] 2 tab PO DAILY 08/11/17 [Last Taken Unknown] baclofen 10 mg tablet 5 mg PO HS #16 tab 06/09/18 [Last Taken Unknown] calcium carb,citrate 167 mg calcium-magnesium cit,glycin 83 mg tablet 1 tab PO BID tab 06/09/18 [Last Taken Unknown] calcium carbonate 500 mg calcium (1,250 mg) chewable tablet 600 mg PO BID tab 06/09/18 [Last Taken Unknown] furosemide 40 mg tablet 80 mg PO DAILY #28 tab 06/09/18 [Last Taken Unknown] gabapentin 100 mg capsule 100 mg PO .QAM #28 cap 06/09/18 [Last Taken Unknown] methenamine hippurate 1 gram tablet 1 g PO BID #56 tab 06/09/18 [Last Taken Unknown] ccdpejnrtzzn-Po-dszd-minerals 18 mg-0.4 mg tablet 1 tab PO DAILY tab 06/09/18 [Last Taken Unknown] zinc oxide 10 % topical cream 1 applic TP BID 06/09/18 [Last Taken Unknown] acetaminophen 500 mg tablet 500 mg PO TID tab 06/28/18 [Last Taken Unknown] apixaban 5 mg tablet 5 mg PO BID #54 tab 07/11/18 [Last Taken Unknown] potassium chloride 10 mEq tablet,extended release 10 meq PO DAILY #10 tab 07/11/18 [Last Taken Unknown] simethicone 80 mg chewable tablet 80 mg PO TID 07/11/18 [Last Taken Unknown] aspirin 81 mg tablet,delayed release 81 mg PO DAILY 08/09/18 [Last Taken Unknown] pen needle, diabetic, safety 30 gauge x 1/3" See Dose Instructions .ROUTE .MEDSUPPLY #100 ea 09/06/18 [Last Taken Unknown] nystatin 100,000 unit/gram topical powder 1 applic TP TID PRN 12/07/18 [Last Taken Unknown] tramadol 50 mg tablet 50 mg PO Q6H PRN 12/07/18 [Last Taken Unknown] guaifenesin 100 mg/5 mL oral liquid 200 mg PO DAILY PRN 02/20/19 [Last Taken Unknown] insulin detemir U-100 100 unit/mL subcutaneous solution 12 unit SUBCUT HS #10 ml 02/20/19 [Last Taken Unknown] mirabegron 50 mg tablet,extended release 24 hr 50 mg PO DAILY 02/20/19 [Last Taken Unknown] olopatadine 0.2 % eye drops 1 drp OP DAILY #5 ml 10/10/19 [Last Taken Unknown] miscellaneous medical supply 1 ea MISCELLANEOUS ONCE #1 ea 11/29/19 [Last Taken Unknown] insulin aspart U-100 100 unit/mL subcutaneous solution 10 unit SUBCUT TID ml 12/29/19 [Last Taken Unknown] insulin detemir U-100 100 unit/mL subcutaneous solution 21 unit SUBCUT QAM ml 12/29/19 [Last Taken Unknown] Calcium Carbonate [Tums] 500 mg PO .Q8HR PRN 01/16/20 [Last Taken Unknown] DULoxetine HCL [Cymbalta] 60 mg PO DAILY 01/16/20 [Last Taken Unknown] Famotidine 20 mg PO BID 01/16/20 [Last Taken Unknown] Insulin Detemir [Levemir] 18 units SC HS 01/16/20 [Last Taken Unknown] Mupirocin [Bactroban] 1 appl TOPICAL DAILY 01/16/20 [Last Taken Unknown] Oxybutynin Chloride [Ditropan] 5 mg PO BID 01/16/20 [Last Taken Unknown] Zinc Oxide [Boudreauxs] 10 gm TOPICAL BID PRN 01/16/20 [Last Taken Unknown] guaiFENesin [Diabetic Tussin Ex] 100 mg PO .Q4HR PRN 01/16/20 [Last Taken Unknown] - History of Present History Narrative: Patient is coming to the ER for fever. She resides at a [facility] and her past history significant for a large stroke and DM among others. Per her chart she had a positive urine culture on January 03 that grew Proteus. She was initially treated with Cipro per her MAR, switched to amoxicillin, last dose was yesterday am. [facility] reports that she did eat her breakfast this morning, received noon medicine at around 11. Shortly after she was noticed to have a temperature up to 100.8, Tylenol was given and patient transferred to the hospital. Rapid COVID testing at the [facility] was negative. She has aphasia at baseline, recently there was some concern about mental status changes and patient had an outpatient CT which showed chronic changes only. Most of the history is obtained from the chart, no further information available due to patient's aphasia. Review of Systems - Narrative Narrative: limited by patient expressive aphasia Medical History (Last Reviewed 01/16/20 @ 16:51 by Supriya Dempsey MD) History of CVA (cerebrovascular accident) Knee pain, bilateral Myocardial infarction Onset Date: ~2016 Peripheral neuropathy Onset Date: ~07/25/12 Urge incontinence Onset Date: ~06/02/07 Ulcer of godinez right mid godinez Surgical History: Surgical History (Last Reviewed 01/16/20 @ 16:51 by Supriya Dempsey MD) History of total right knee replacement H/O dilation and curettage Onset Date: ~02/17/11 Dr. Laird H/O foot surgery Onset Date: Unknown Left Bone removal secondary to infection 08/1993, 08/1998, 02/2000 History of bunionectomy of left great toe Onset Date: ~02/2000 Dr. Carbone History of cataract surgery Onset Date: ~2012 Dr. Potter 12/2012 and 01/2013 History of hysteroscopy Onset Date: ~02/17/11 Dr. Laird Hx of tonsillectomy Onset Date: Unknown as a child Family History: Family History (Last Reviewed 01/16/20 @ 14:42 by Tonya Pablo RN) Father , age 79 Myocardial infarction Mother , age 91 Myocardial infarction Social History: (Last Reviewed 01/16/20 @ 14:42 by Tonya Pablo RN) Social History: halfway: Yes halfway comment: [facility] Marital status: lives independently: No current occupational status: retired Highest education level completed: high school graduate Service: No Tobacco: Smoking Status: Former smoker Alcohol: alcohol intake: current Alcohol type: wine alcohol intake frequency: holiday/special occasion Substance Use: substance use type: does not use Dietary Habits: caffeine: Yes Type: coffee Physical Exam - Physical Exam General Appearance: Present: wd/wn, alert, no apparent distress Head Exam: Present: normal inspection, no evidence of injury Eye Exam: Normal inspection: bilateral, PERRL: bilateral Ears, Nose, Throat: Present: normal pharynx Respiratory: Present: no respiratory distress, normal breath sounds, no accessory muscle use, lungs clear Cardiovascular/Chest: Present: regular rate, rhythm, no murmur Gastrointestinal/Abdominal: Present: normal bowel sounds, nontender, nondistended, soft Extremity Exam: Present: normal inspection, pedal edema Neurological Exam: Present: alert, normal mood/affect, other - Patient presents right hand, smile equal, answers some questions appropriate, answers some questions with words that do not correlate to question Skin Exam: Present: normal color, warm/dry Progress - Results and Orders Patient's Lab Results:: I have reviewed the patient's lab results. - Vital Signs Patient's Vital Signs:: I have reviewed the patient's vital signs. Vital Signs: Vital Signs 01/16/20 13:04 Temperature 37.1 C Pulse Rate 72 Respiratory Rate 12 Blood Pressure 106/53 O2 Sat by Pulse Oximetry 97 - X-Ray X-Ray #1 X-Ray: chest - multifocal pneumonia Interpretation: Reviewed by me - Progress/Reassessment Chief Complaint: Fever Progress Note-Subjective: 01/16/20 13:42 discussed with 01/16/20 16:10 patient's urine most likely source of infection CXR done for completion shows multifocal infiltrate (saturations in the mid 90's, lungs clear to auscultation), clinically not as likely will retest for COVID as now sure about sensitivity and specificity of test at [facility], discussed with Tonya Luo will treat with rocephin to cover both recent urine culture and possible pneumonia 01/16/20 17:20 discussed with terri Leary to admit for UTI and possible pneumonia, will add zithromax to rocephin 01/16/20 17:24 PSI 129, class IV, qualifies for acute admission 01/16/20 17:31 discussed plan with Departure Clinical Impression: UTI (urinary tract infection) Qualifiers: Urinary tract infection type: site unspecified Hematuria presence: with hematuria Qualified Code(s): N39.0 - Urinary tract infection, site not specified Pneumonia Qualifiers: Pneumonia type: due to unspecified organism Laterality: bilateral Lung location: unspecified part of lung Qualified Code(s): J18.9 - Pneumonia, unspecified organism - Departure Disposition: Still a patient Condition: Stable
[2020-01-16 13:45] LABS: Hematocrit 33.5 % (37.0-47.0); Hemoglobin 9.8 gm/dL (12.5-16.0); Mean Corpuscular Hemoglobin 23.1 pg (27-31); Mean Corpuscular Hgb Conc 29.3 g/dl (32-36); Mean Platelet Volume 10.6 fl (8-12.5); Platelet Count 219 K/mm3 (150-450); Red Blood Count 4.24 M/mm3 (4.2-5.4); Red Cell Distribution Width 20.9 % (11.5-14.0); White Blood Count 8.4 K/mm3 (4.0-10.5)
[2020-01-16 13:47] LABS: Total Cells Counted 100
[2020-01-16 13:54] LABS: Albumin * 3.2 gm/dl (3.4-5.0); Anion Gap 13.5 mmol/L (6.8-13.8); BUN/Creatinine Ratio 31.3 (9.0-21.6); Bilirubin, Total 0.7 mg/dL (0.0-1.1); Ca. Corrected For Albumin 9.9 mg/dL (8.4-10.2); Calcium * 9.6 mg/dL (7.9-10.9); Carbon Dioxide 29.5 mmol/L (24-32.6); Total Protein 7.4 gm/dL (6.2-8.2)
[2020-01-16 14:00] LABS: Band 2 % (0-2.0); Lymphocyte 9 % (20-51); Monocyte 9 % (0-9); Neutrophil 80 % (42-75); Neutrophil # 6.7 K/mm3 (1.3-6.0)
[2020-01-16 14:01] LABS: Platelet Estimate Normal (NORMAL); RBC Morphology Normal (NORMAL)
[2020-01-16] MEDS ORDERED: NORMAL SALINE 1,000 ML IV ONE ×2 (14:13→15:28)
[2020-01-16 14:24] LABS: Urine Bilirubin Negative (NEGATIVE); Urine Blood 25 /ul (NEGATIVE); Urine Ketone Negative (NEGATIVE); Urine Nitrite Negative (NEGATIVE); Urine Protein Negative (NEGATIVE); Urine Specific Gravity 1.015 SP.GR. (1.005-1.010); Urine Urobilinogen Normal (NORMAL); Urine pH 5.5 pH (5.0-7.0)
[2020-01-16 14:34] LABS: Urine Appearance Slightly Cloudy (CLEAR); Urine Bacteria TRACE; Urine Color Yellow
[2020-01-16] MEDS ORDERED: cefTRIAXone SODIUM 1,000 MG/100 ML BAG IV ONE (16:09)
[2020-01-16] MEDS ORDERED: AZITHROMYCIN 250 MG TABLET PO STA (17:40)
--- NOTE | 2020-01-16 18:17 | HP ---
Chief Complaint - Chief Complaint Date of Service: 01/16/20 Time of Service: 17:52 Chief Complaint: Fever x1 day History of Present Illness: 79-year-old female with a past medical history of CVA with residual left-sided weakness, myocardial infarct, peripheral neuropathy, urgency incontinence, bilateral knee pain presents from [facility] with fever 100.8. In the emergency department she was found to have stable vitals on, lactic acid of 2.7, positive UA, chest x-ray showed bilateral multifocal airspace consolidation, right worse than left consistent with multifocal pneumonia. She was started on ceftriaxone and azithromycin in the emergency department and is being admitted for pneumonia and UTI. Medical History (Last Reviewed 01/16/20 @ 16:51 by Supriya Dempsey MD) History of CVA (cerebrovascular accident) Knee pain, bilateral Myocardial infarction Onset Date: ~2016 Peripheral neuropathy Onset Date: ~07/25/12 Urge incontinence Onset Date: ~06/02/07 Ulcer of godinez right mid godinez Surgical History: Surgical History (Last Reviewed 01/16/20 @ 16:51 by Supriya Dempsey MD) History of total right knee replacement H/O dilation and curettage Onset Date: ~02/17/11 Dr. Laird H/O foot surgery Onset Date: Unknown Left Bone removal secondary to infection 08/1993, 08/1998, 02/2000 History of bunionectomy of left great toe Onset Date: ~02/2000 Dr. Carbone History of cataract surgery Onset Date: ~2012 Dr. Potter 12/2012 and 01/2013 History of hysteroscopy Onset Date: ~02/17/11 Dr. Laird Hx of tonsillectomy Onset Date: Unknown as a child Family History: Family History (Last Reviewed 01/16/20 @ 14:42 by Tonya Pablo RN) Father , age 79 Myocardial infarction Mother , age 91 Myocardial infarction Social History: (Last Reviewed 01/16/20 @ 14:42 by Tonya Pablo RN) Social History: long-term: Yes long-term comment: [facility] Marital status: lives independently: No current occupational status: retired Highest education level completed: high school graduate Service: No Tobacco: Smoking Status: Former smoker Alcohol: alcohol intake: current Alcohol type: wine alcohol intake frequency: holiday/special occasion Substance Use: substance use type: does not use Dietary Habits: caffeine: Yes Type: coffee Review Of Systems (GEN) - Review of Systems Generalized/Overall Review: Present: Fever Misc: All systems neg except as marked Additional Comments: Patient is a poor historian and does not answer questions reliably Immunizations: IMMUNIZATION HX Immunizations Up to Date unknown History of Influenza Vaccine More Information Required Hx Pneumococcal Vaccination More Information Required Allergies/Adverse Reactions: Allergies Allergy/AdvReac Type Severity Reaction Status Date / Time adhesive tape AdvReac Intermediate Verified 06/28/19 12:08 Home Medications: HOME MEDICATIONS Acetaminophen 650 mg PO Q6H PRN 08/11/17 [Last Taken Unknown] Atorvastatin Calcium 40 mg PO DAILY 08/11/17 [Last Taken Unknown] Bisacodyl 2 tab PO DAILY 08/11/17 [Last Taken Unknown] Bisacodyl [Dulcolax Suppository] 10 mg RC DAILY PRN 08/11/17 [Last Taken Unknown] Gabapentin 400 mg PO HS 08/11/17 [Last Taken Unknown] Insulin Aspart [Novolog] See Protocol SC TID 08/11/17 [Last Taken Unknown] Lisinopril [Zestril] 2.5 mg PO DAILY 08/11/17 [Last Taken Unknown] Polyethylene Glycol 3350 [Miralax] 17 gm PO DAILY 08/11/17 [Last Taken Unknown] Sennosides [Senokot] 2 tab PO DAILY 08/11/17 [Last Taken Unknown] baclofen 10 mg tablet 5 mg PO HS #16 tab 06/09/18 [Last Taken Unknown] calcium carb,citrate 167 mg calcium-magnesium cit,glycin 83 mg tablet 1 tab PO BID tab 06/09/18 [Last Taken Unknown] calcium carbonate 500 mg calcium (1,250 mg) chewable tablet 600 mg PO BID tab 06/09/18 [Last Taken Unknown] furosemide 40 mg tablet 80 mg PO DAILY #28 tab 06/09/18 [Last Taken Unknown] gabapentin 100 mg capsule 100 mg PO .QAM #28 cap 06/09/18 [Last Taken Unknown] methenamine hippurate 1 gram tablet 1 g PO BID #56 tab 06/09/18 [Last Taken Unknown] dmiyewwkduch-Dz-fsgx-minerals 18 mg-0.4 mg tablet 1 tab PO DAILY tab 06/09/18 [Last Taken Unknown] zinc oxide 10 % topical cream 1 applic TP BID 06/09/18 [Last Taken Unknown] acetaminophen 500 mg tablet 500 mg PO TID tab 06/28/18 [Last Taken Unknown] apixaban 5 mg tablet 5 mg PO BID #54 tab 07/11/18 [Last Taken Unknown] potassium chloride 10 mEq tablet,extended release 10 meq PO DAILY #10 tab 07/11/18 [Last Taken Unknown] simethicone 80 mg chewable tablet 80 mg PO TID 07/11/18 [Last Taken Unknown] aspirin 81 mg tablet,delayed release 81 mg PO DAILY 08/09/18 [Last Taken Unknown] pen needle, diabetic, safety 30 gauge x 1/3" See Dose Instructions .ROUTE .MEDSUPPLY #100 ea 09/06/18 [Last Taken Unknown] nystatin 100,000 unit/gram topical powder 1 applic TP TID PRN 12/07/18 [Last Taken Unknown] tramadol 50 mg tablet 50 mg PO Q6H PRN 12/07/18 [Last Taken Unknown] guaifenesin 100 mg/5 mL oral liquid 200 mg PO DAILY PRN 02/20/19 [Last Taken Unknown] insulin detemir U-100 100 unit/mL subcutaneous solution 12 unit SUBCUT HS #10 ml 02/20/19 [Last Taken Unknown] mirabegron 50 mg tablet,extended release 24 hr 50 mg PO DAILY 02/20/19 [Last Taken Unknown] olopatadine 0.2 % eye drops 1 drp OP DAILY #5 ml 10/10/19 [Last Taken Unknown] miscellaneous medical supply 1 ea MISCELLANEOUS ONCE #1 ea 11/29/19 [Last Taken Unknown] insulin aspart U-100 100 unit/mL subcutaneous solution 10 unit SUBCUT TID ml 12/29/19 [Last Taken Unknown] insulin detemir U-100 100 unit/mL subcutaneous solution 21 unit SUBCUT QAM ml 12/29/19 [Last Taken Unknown] Calcium Carbonate [Tums] 500 mg PO .Q8HR PRN 01/16/20 [Last Taken Unknown] DULoxetine HCL [Cymbalta] 60 mg PO DAILY 01/16/20 [Last Taken Unknown] Famotidine 20 mg PO BID 01/16/20 [Last Taken Unknown] Insulin Detemir [Levemir] 18 units SC HS 01/16/20 [Last Taken Unknown] Mupirocin [Bactroban] 1 appl TOPICAL DAILY 01/16/20 [Last Taken Unknown] Oxybutynin Chloride [Ditropan] 5 mg PO BID 01/16/20 [Last Taken Unknown] Zinc Oxide [Boudreauxs] 10 gm TOPICAL BID PRN 01/16/20 [Last Taken Unknown] guaiFENesin [Diabetic Tussin Ex] 100 mg PO .Q4HR PRN 01/16/20 [Last Taken Unknown] Exam - Exam Vital Signs: Vital Signs - Last Taken Temp 37.2 C 01/16/20 16:30 Pulse 80 01/16/20 17:30 Resp 15 01/16/20 17:30 BP 110/17 01/16/20 17:30 Pulse Ox 91 L 01/16/20 17:30 Constitutional: Present: Alert, Cooperative, Well developed, Well nourished, No distress, Elderly, Morbidly obese ENT Exam: Present: hearing grossly normal, moist mucous membranes Eye Exam: bilateral eye: normal inspection Neck: Present: non-tender, supple. Absent: lymphadenopathy (R), lymphadenopathy (L) Respiratory: Present: lungs clear - In anterior lung yi bilaterally, no respiratory distress, no accessory muscle use, No wheezing. Absent: crackles, rhonchi Cardiovascular/Chest: Present: normal peripheral pulses, regular rate, rhythm, no edema, no murmur Peripheral Pulses: dorsalis-pedis (R): 1+, dorsalis-pedis (L): 1+ Abdomen: Present: Normal bowel sounds, soft, nontender, obese Extremity: Present: no pedal edema Skin Exam: Present: warm/dry Neurologic: Present: alert, normal mood/affect, other - Left-sided weakness Appearance: Present: appropriate appearance. Absent: appropriate insight Eye contact: Present: cooperative. Absent: good eye contact Thoughts: Present: normal mood /affect Diagnostic Studies: Abnormal Lab Results 01/16/20 01/16/20 01/16/20 Range/Units 13:19 13:19 13:19 Hgb 9.8 L (12.5-16.0) gm/dL Hct 33.5 L (37.0-47.0) % MCH 23.1 L (27-31) pg MCHC 29.3 L (32-36) g/dl RDW 20.9 H (11.5-14.0) % Neutrophils % (Manual) 80 H (42-75) % Lymphocytes % (Manual) 9 L (20-51) % Neutrophils # (Manual) 6.7 H (1.3-6.0) K/mm3 Lymphocytes # (Manual) 0.8 L (1.5-3.5) k/mm3 Potassium 5.0 H (3.4-4.6) mmol/L BUN 40 H (3-23) mg/dL Est GFR (Non-Af Amer) 43 L (60-130) mL/min BUN/Creatinine Ratio 31.3 H (9.0-21.6) Random Glucose 123 H (70-110) mg/dL Lactic Acid, Venous 2.7 H* (0.4-2.0) mmol/L AST 49 H (0-48) U/L C-Reactive Prot, Quant 16.0 H (0.0-0.9) mg/dL Albumin 3.2 L (3.4-5.0) gm/dl Urine Blood (NEGATIVE) /ul Urine RBC (0-5) /hpf Urine WBC (0-5) /hpf 01/16/20 Range/Units 13:43 Hgb (12.5-16.0) gm/dL Hct (37.0-47.0) % MCH (27-31) pg MCHC (32-36) g/dl RDW (11.5-14.0) % Neutrophils % (Manual) (42-75) % Lymphocytes % (Manual) (20-51) % Neutrophils # (Manual) (1.3-6.0) K/mm3 Lymphocytes # (Manual) (1.5-3.5) k/mm3 Potassium (3.4-4.6) mmol/L BUN (3-23) mg/dL Est GFR (Non-Af Amer) (60-130) mL/min BUN/Creatinine Ratio (9.0-21.6) Random Glucose (70-110) mg/dL Lactic Acid, Venous (0.4-2.0) mmol/L AST (0-48) U/L C-Reactive Prot, Quant (0.0-0.9) mg/dL Albumin (3.4-5.0) gm/dl Urine Blood 25 H (NEGATIVE) /ul Urine RBC 5-10 H (0-5) /hpf Urine WBC 10-25 H (0-5) /hpf Laboratory Results WBC 8.4 K/mm3 (4.0-10.5) 01/16/20 13:19 RBC 4.24 M/mm3 (4.2-5.4) 01/16/20 13:19 Hgb 9.8 gm/dL (12.5-16.0) L 01/16/20 13:19 Hct 33.5 % (37.0-47.0) L 01/16/20 13:19 MCV 79.0 fl (78-100) 01/16/20 13:19 MCH 23.1 pg (27-31) L 01/16/20 13:19 MCHC 29.3 g/dl (32-36) L 01/16/20 13:19 RDW 20.9 % (11.5-14.0) H 01/16/20 13:19 Plt Count 219 K/mm3 (150-450) 01/16/20 13:19 MPV 10.6 fl (8-12.5) 01/16/20 13:19 Neutrophils % (Manual) 80 % (42-75) H 01/16/20 13:19 Band Neuts % (Manual) 2 % (0-2.0) 01/16/20 13:19 Lymphocytes % (Manual) 9 % (20-51) L 01/16/20 13:19 Monocytes % (Manual) 9 % (0-9) 01/16/20 13:19 Neutrophils # (Manual) 6.7 K/mm3 (1.3-6.0) H 01/16/20 13:19 Lymphocytes # (Manual) 0.8 k/mm3 (1.5-3.5) L 01/16/20 13:19 Monocytes # (Manual) 0.8 k/mm3 (0.0-1.0) 01/16/20 13:19 Platelet Estimate Normal (NORMAL) 01/16/20 13:19 RBC Morphology Normal (NORMAL) 01/16/20 13:19 Sodium 139 mmol/L (132-142) 01/16/20 13:19 Plasma Sodium 139 mmol/L (130-142) 01/16/20 13:19 Potassium 5.0 mmol/L (3.4-4.6) H 01/16/20 13:19 Chloride 101 mmol/L (97-106) 01/16/20 13:19 Carbon Dioxide 29.5 mmol/L (24-32.6) 01/16/20 13:19 Anion Gap 13.5 mmol/L (6.8-13.8) 01/16/20 13:19 BUN 40 mg/dL (3-23) H 01/16/20 13:19 Creatinine 1.28 mg/dL (0.4-1.4) 01/16/20 13:19 Est GFR (Non-Af Amer) 43 mL/min (60-130) L 01/16/20 13:19 BUN/Creatinine Ratio 31.3 (9.0-21.6) H 01/16/20 13:19 Random Glucose 123 mg/dL (70-110) H 01/16/20 13:19 Lactic Acid, Venous 1.9 mmol/L (0.4-2.0) 01/16/20 17:20 Calcium 9.6 mg/dL (7.9-10.9) 01/16/20 13:19 Calcium Adj for Albumin 9.9 mg/dL (8.4-10.2) 01/16/20 13:19 Total Bilirubin 0.7 mg/dL (0.0-1.1) 01/16/20 13:19 AST 49 U/L (0-48) H 01/16/20 13:19 ALT 23 U/L (19-67) 01/16/20 13:19 Alkaline Phosphatase 99 U/L (50-170) 01/16/20 13:19 C-Reactive Prot, Quant 16.0 mg/dL (0.0-0.9) H 01/16/20 13:19 Total Protein 7.4 gm/dL (6.2-8.2) 01/16/20 13:19 Albumin 3.2 gm/dl (3.4-5.0) L 01/16/20 13:19 Urine Color Yellow 01/16/20 13:43 Urine Appearance Slightly cloudy (CLEAR) 01/16/20 13:43 Urine pH 5.5 pH (5.0-7.0) 01/16/20 13:43 Ur Specific [place] 1.015 SP.GR. (1.005-1.010) 01/16/20 13:43 Urine Protein Negative mg/dL (NEGATIVE) 01/16/20 13:43 Urine Glucose (UA) Negative mg/dL (NEGATIVE) 01/16/20 13:43 Urine Ketones Negative mg/dL (NEGATIVE) 01/16/20 13:43 Urine Blood 25 /ul (NEGATIVE) H 01/16/20 13:43 Urine Nitrate Negative (NEGATIVE) 01/16/20 13:43 Urine Bilirubin Negative mg/dl (NEGATIVE) 01/16/20 13:43 Urine Urobilinogen Normal EU/dl (NORMAL) 01/16/20 13:43 Ur Leukocyte Esterase Negative /ul (NEGATIVE) 01/16/20 13:43 Urine RBC 5-10 /hpf (0-5) H 01/16/20 13:43 Urine WBC 10-25 /hpf (0-5) H 01/16/20 13:43 Ur Epithelial Cells None seen /hpf (0-5) 01/16/20 13:43 Urine Bacteria Trace (NONE) 01/16/20 13:43 Urine Culture Comments No culture indicated 01/16/20 13:43 SARS-CoV-2 (PCR) Not detected (NotDetected) 01/16/20 15:54 Assessment/Plan - Narrative Narrative: 79-year-old female with a past medical history of CVA with residual left-sided weakness, myocardial infarct, peripheral neuropathy, urgency incontinence, bilateral knee pain presents from [facility] with fever 100.8. In the emergency department she was found to have stable vitals on, lactic acid of 2.7, positive UA, chest x-ray showed bilateral multifocal airspace consolidation, right worse than left consistent with multifocal pneumonia. She was started on ceftriaxone and azithromycin in the emergency department and is being admitted for pneumonia and UTI. Plan #1 continue with ceftriaxone and azithromycin #2 follow-up urine culture #3 CBC and CMP in the morning #4 resume home medications for comorbidities - Assessment/Plan (1) Multifocal pneumonia Problem: Acute (2) Left-sided weakness Problem: Acute (3) A-fib Problem: Chronic Qualifiers: (4) HTN (hypertension) Problem: Chronic Qualifiers: (5) HLD (hyperlipidemia) Problem: Chronic Qualifiers: (6) Diabetes Problem: Chronic (7) Anemia Problem: Chronic (8) UTI (urinary tract infection) Problem: Acute Qualifiers: Urinary tract infection type: site unspecified Hematuria presence: with hematuria Qualified Code(s): N39.0 - Urinary tract infection, site not s pecified; R31.9 - Hematuria, unspecified
[2020-01-16] MEDS ORDERED: NYSTATIN 15 APPL BTL TP PRN (18:47)
[2020-01-16] MEDS ORDERED: BISACODYL 10 MG SUPP.RECT RC PRN (18:47)
[2020-01-16] MEDS ORDERED: guaiFENesin 100 MG/5 ML SYRUP PO PRN (18:47)
[2020-01-16] MEDS ORDERED: INSULIN DETEMIR 100 UNITS/ML VIAL SC SCH (21:00)
[2020-01-16] MEDS ORDERED: GABAPENTIN 400 MG CAPSULE PO SCH (21:00)
[2020-01-16] MEDS: BACLOFEN 10 MG TABLET PO SCH (21:54)
[2020-01-16] MEDS: CALCIUM CARBONATE/VITAMIN D3 1 TAB TABLET PO SCH (21:56)
[2020-01-16] MEDS: OXYBUTYNIN CHLORIDE 5 MG TABLET PO SCH (21:56)
[2020-01-16] MEDS: ACETAMINOPHEN 325 MG TABLET PO PRN (21:56)
[2020-01-16] MEDS: APIXABAN 5 MG TABLET PO SCH (21:56)
[2020-01-16] MEDS: FAMOTIDINE 20 MG TABLET PO SCH (21:56)
[2020-01-16] MEDS ORDERED: INSULIN GLARGINE,HUM.REC.ANLOG 100 UNITS/ML VIAL SC ONE (22:00)
[2020-01-17 06:34] LABS: Hematocrit 29.3 % (37.0-47.0); Hemoglobin 8.7 gm/dL (12.5-16.0); Mean Cell Volume 77.9 fl (78-100); Mean Corpuscular Hemoglobin 23.1 pg (27-31); Mean Corpuscular Hgb Conc 29.7 g/dl (32-36); Mean Platelet Volume 9.7 fl (8-12.5); Neutrophil # 18.9 K/mm3 (1.3-6.0); Platelet Count 176 K/mm3 (150-450); Red Blood Count 3.76 M/mm3 (4.2-5.4); Red Cell Distribution Width 21.2 % (11.5-14.0)
[2020-01-17 06:52] LABS: Albumin * 2.8 gm/dl (3.4-5.0); Anion Gap 14.3 mmol/L (6.8-13.8); BUN/Creatinine Ratio 28.1 (9.0-21.6); Bilirubin, Total 0.7 mg/dL (0.0-1.1); Calcium * 9.4 mg/dL (7.9-10.9); Carbon Dioxide 27.8 mmol/L (24-32.6); Potassium 4.1 mmol/L (3.4-4.6); Total Protein 7.2 gm/dL (6.2-8.2)
--- NOTE | 2020-01-17 08:32 | PN ---
Subjective - Date and Time Seen Date: 01/17/20 Time: 08:22 Subjective Narrative: Patientcharbel tried to open her eyes with name call , otherwise unresponsive to other questions and did not follow commnads. Objective - Review of Systems Misc: All systems neg except as marked - Unobtainable due to to altered mentation. - Vitals Vitals: Last Vital Signs Temp 37.1 C 01/17/20 06:58 Pulse 86 01/17/20 06:58 Resp 16 01/17/20 06:58 BP 104/46 01/17/20 07:00 Pulse Ox 91 L 01/17/20 07:00 - Abnormal Lab Findings Abnormal Lab Findings: Abnormal Lab Results 01/16/20 01/16/20 01/16/20 Range/Units 13:19 13:19 13:19 WBC (4.0-10.5) K/mm3 RBC (4.2-5.4) M/mm3 Hgb 9.8 L (12.5-16.0) gm/dL Hct 33.5 L (37.0-47.0) % MCV (78-100) fl MCH 23.1 L (27-31) pg MCHC 29.3 L (32-36) g/dl RDW 20.9 H (11.5-14.0) % Immature Gran % (Auto) (0.001-0.429) % Immature Gran # (Auto) (0.000-0.0310) K/mm3 Neutrophils % (42-75.0) % Neutrophils % (Manual) 80 H (42-75) % Lymphocytes % (20-51) % Lymphocytes % (Manual) 9 L (20-51) % Neutrophils # (1.3-6.0) K/mm3 Neutrophils # (Manual) 6.7 H (1.3-6.0) K/mm3 Lymphocytes # (1.5-3.5) k/mm3 Lymphocytes # (Manual) 0.8 L (1.5-3.5) k/mm3 Monocytes # (0.0-1.0) k/mm3 Potassium 5.0 H (3.4-4.6) mmol/L Anion Gap (6.8-13.8) mmol/L BUN 40 H (3-23) mg/dL Creatinine (0.4-1.4) mg/dL Est GFR (Non-Af Amer) 43 L (60-130) mL/min BUN/Creatinine Ratio 31.3 H (9.0-21.6) Random Glucose 123 H (70-110) mg/dL Lactic Acid, Venous 2.7 H* (0.4-2.0) mmol/L AST 49 H (0-48) U/L C-Reactive Prot, Quant 16.0 H (0.0-0.9) mg/dL Albumin 3.2 L (3.4-5.0) gm/dl Urine Blood (NEGATIVE) /ul Urine RBC (0-5) /hpf Urine WBC (0-5) /hpf 01/16/20 01/17/20 01/17/20 Range/Units 13:43 06:28 06:28 WBC 22.0 H D (4.0-10.5) K/mm3 RBC 3.76 L (4.2-5.4) M/mm3 Hgb 8.7 L (12.5-16.0) gm/dL Hct 29.3 L (37.0-47.0) % MCV 77.9 L (78-100) fl MCH 23.1 L (27-31) pg MCHC 29.7 L (32-36) g/dl RDW 21.2 H (11.5-14.0) % Immature Gran % (Auto) 2.10 H (0.001-0.429) % Immature Gran # (Auto) 0.47 H (0.000-0.0310) K/mm3 Neutrophils % 86.0 H (42-75.0) % Neutrophils % (Manual) (42-75) % Lymphocytes % 5.9 L (20-51) % Lymphocytes % (Manual) (20-51) % Neutrophils # 18.9 H (1.3-6.0) K/mm3 Neutrophils # (Manual) (1.3-6.0) K/mm3 Lymphocytes # 1.30 L (1.5-3.5) k/mm3 Lymphocytes # (Manual) (1.5-3.5) k/mm3 Monocytes # 1.3 H (0.0-1.0) k/mm3 Potassium (3.4-4.6) mmol/L Anion Gap 14.3 H (6.8-13.8) mmol/L BUN 45 H (3-23) mg/dL Creatinine 1.60 H (0.4-1.4) mg/dL Est GFR (Non-Af Amer) 33 L D (60-130) mL/min BUN/Creatinine Ratio 28.1 H (9.0-21.6) Random Glucose 135 H (70-110) mg/dL Lactic Acid, Venous (0.4-2.0) mmol/L AST (0-48) U/L C-Reactive Prot, Quant (0.0-0.9) mg/dL Albumin 2.8 L (3.4-5.0) gm/dl Urine Blood 25 H (NEGATIVE) /ul Urine RBC 5-10 H (0-5) /hpf Urine WBC 10-25 H (0-5) /hpf - Exam Constitutional: Present: Alert - AAO x1, Somnolent ENT Exam: Present: hard of hearing Neck: Present: limited range of motion. Absent: lymphadenopathy (R), lymphadenopathy (L) Respiratory: Present: decreased breath sounds, crackles, No rales, No wheezing Cardiovascular/Chest: Present: no JVD, no murmur, irregularly irregular Abdomen: Present: Normal bowel sounds, soft, nontender, obese Extremity: Present: no calf tenderness, lower extremity edema Neurologic: Present: alert - Alert awake oriented x1, facial droop, motor weakness Assessment/Plan Plan Narrative: [facility]a is a [facility] who was admitted for multifocal pneumonia and UTI and was started on IV Rocephin and azithromycin. Her white blood cell count which was 8 went up to 22 this morning. She did try to open her eyes when I called her name however she did not respond to my other questions and follow commands. The nurse earlier said that she did answer her questions. She does have jerking and twitching movements intermittently. Her last CT scan on 01/05/2020 showed a large chronic right middle cerebral artery territory infarct as well as a small focal cortical left frontoparietal infarct. She does have large encephalomalacia changes to her prior infarcts. I think her jerky/twitching movements unlikely focal motor seizures with impaired awareness vs no impaired awareness related to her numerous strokes in the past with ence phalomalacic changes in her brain. Will get EEG. She is already on Gabapentin for diabetic neuropathy and will increase it to 200 mg PO TID. Her Cr clearance is 53. We will change her IV Rocephin to IV cefepime to cover for Pseudomonas and continue with azithromycin. Consider adding vancomycin if there is no improvement. We will however talk to family as to how aggressive they want to be with their mother or if they want to be considering hospice care. - Problems/Diagnosis (1) Leukocytosis Problem: Acute Qualifiers: Leukocytosis type: leukemoid reaction Qualified Code(s): D72.823 - Leukemoid reaction (2) Multifocal pneumonia Problem: Acute (3) Left-sided weakness Problem: Acute (4) Anemia Problem: Chronic (5) A-fib Problem: Chronic Qualifiers: (6) CVA (cerebral vascular accident) Problem: Chronic Qualifiers: CVA mechanism: unspecified Qualified Code(s): I63.9 - Cerebral infarction, unspecified (7) Diabetes mellitus type 2 in obese Problem: Chronic (8) HLD (hyperlipidemia) Problem: Chronic Qualifiers: (9) HTN (hypertension) Problem: Chronic Qualifiers: (10) UTI (urinary tract infection) Problem: Acute Qualifiers: Urinary tract infection type: site unspecified Hematuria presence: with hematuria Qualified Code(s): N39.0 - Urinary tract infection, site not specified; R31.9 - Hematuria, unspecified Narrative: UCS no growth. (11) Seizure disorder Problem: Suspected Narrative: intermitent jerking/twitching movements
[2020-01-17] MEDS ORDERED: FUROSEMIDE 40 MG TABLET PO SCH (09:00)
[2020-01-17] MEDS ORDERED: GABAPENTIN 100 MG CAPSULE PO SCH ×2 (09:00→13:00)
[2020-01-17] MEDS ORDERED: ROSUVASTATIN CALCIUM 20 MG TABLET PO SCH (09:00)
[2020-01-17] MEDS ORDERED: INSULIN DETEMIR 100 UNITS/ML VIAL SC SCH (09:00)
[2020-01-17] MEDS ORDERED: INSULIN ASPART 100 UNITS/ML VIAL SC SCH (09:00)
[2020-01-17] MEDS ORDERED: LISINOPRIL 2.5 MG TABLET PO SCH (09:00)
[2020-01-17] MEDS: CEFEPIME HCL 1 GM in DEXTROSE 5 % IN WATER 100 ML IV SCH ×4 (09:02→21:18)
[2020-01-17] MEDS: POLYETHYLENE GLYCOL 3350 17 GM PACKET PO SCH (09:03)
[2020-01-17] MEDS: SENNOSIDES 8.6 MG TABLET PO SCH (09:04)
[2020-01-17] MEDS: ASPIRIN 81 MG TABLET.DR PO SCH (09:04)
[2020-01-17] MEDS: SIMETHICONE 80 MG TAB.CHEW PO SCH ×3 (09:04→17:30)
[2020-01-17] MEDS: POTASSIUM CHLORIDE 10 MEQ TABLET.SA PO SCH (09:05)
[2020-01-17] MEDS: APIXABAN 5 MG TABLET PO SCH ×2 (09:05→21:23)
[2020-01-17] MEDS: CALCIUM CARBONATE/VITAMIN D3 1 TAB TABLET PO SCH ×2 (09:05→21:19)
[2020-01-17] MEDS: FAMOTIDINE 20 MG TABLET PO SCH ×2 (09:05→21:39)
[2020-01-17] MEDS: FUROSEMIDE 80 MG TABLET PO SCH (09:06)
[2020-01-17] MEDS: DULoxetine HCL 30 MG CAPSULE.SA PO SCH (09:06)
[2020-01-17] MEDS: OXYBUTYNIN CHLORIDE 5 MG TABLET PO SCH ×2 (09:06→21:20)
[2020-01-17] MEDS: MIRABEGRON 25 MG TAB.PO.ER PO SCH (09:07)
[2020-01-17] MEDS: ACETAMINOPHEN 500 MG TABLET PO SCH ×3 (09:07→17:54)
[2020-01-17] MEDS: INSULIN LISPRO 100 UNITS/ML VIAL SC SCH ×3 (09:08→17:30)
[2020-01-17] MEDS: INSULIN GLARGINE,HUM.REC.ANLOG 100 UNITS/ML VIAL SC SCH ×2 (09:09→21:23)
[2020-01-17] MEDS ORDERED: NORMAL SALINE 1,000 ML IV ONE (10:56)
[2020-01-17] MEDS: GABAPENTIN 250 MG/5 ML PO SCH ×2 (14:24→17:35)
[2020-01-17] MEDS: AZITHROMYCIN 250 MG TABLET PO SCH (17:35)
[2020-01-17] MEDS: ROSUVASTATIN CALCIUM 20 MG TABLET PO SCH (21:19)
[2020-01-17] MEDS: BACLOFEN 10 MG TABLET PO SCH (21:19)
[2020-01-18] MEDS: ACETAMINOPHEN 325 MG TABLET PO PRN (06:45)
[2020-01-18 07:32] LABS: Hematocrit 28.4 % (37.0-47.0); Hemoglobin 8.4 gm/dL (12.5-16.0); Mean Cell Volume 77.8 fl (78-100); Mean Corpuscular Hgb Conc 29.6 g/dl (32-36); Mean Platelet Volume 10.4 fl (8-12.5); Neutrophil # 18.6 K/mm3 (1.3-6.0); Neutrophil % 87.6 % (42-75.0); Platelet Count 165 K/mm3 (150-450); Red Blood Count 3.65 M/mm3 (4.2-5.4); Red Cell Distribution Width 21.5 % (11.5-14.0); White Blood Count 21.2 K/mm3 (4.0-10.5)
[2020-01-18 07:41] LABS: Anion Gap 14.3 mmol/L (6.8-13.8); BUN/Creatinine Ratio 26.8 (9.0-21.6); Calcium * 9.3 mg/dL (7.9-10.9); Carbon Dioxide 26.8 mmol/L (24-32.6); Estimated Creat Clear 17.8; Potassium 4.1 mmol/L (3.4-4.6)
--- NOTE | 2020-01-18 08:36 | PN ---
Subjective - Date and Time Seen Date: 01/18/20 Time: 08:21 Subjective Narrative: Patient is AAO x 1. Did respond to me with a good morning when I greeted her. WBC only slightly decreased. Tmax 37.8. Objective - Review of Systems Generalized/Overall Review: Reports: Fever Misc: All systems neg except as marked - Unobtainable due to Altered menal status - Vitals Vitals: Last Vital Signs Temp 37.8 C 01/18/20 06:33 Pulse 90 01/18/20 06:33 Resp 18 01/18/20 06:33 BP 130/54 01/18/20 06:33 Pulse Ox 92 L 01/18/20 06:33 - Abnormal Lab Findings Abnormal Lab Findings: Abnormal Lab Results 01/17/20 01/18/20 01/18/20 Range/Units 06:00 07:25 07:25 WBC 21.2 H (4.0-10.5) K/mm3 RBC 3.65 L (4.2-5.4) M/mm3 Hgb 8.4 L (12.5-16.0) gm/dL Hct 28.4 L (37.0-47.0) % MCV 77.8 L (78-100) fl MCH 23.0 L (27-31) pg MCHC 29.6 L (32-36) g/dl RDW 21.5 H (11.5-14.0) % Immature Gran % (Auto) 2.00 H (0.001-0.429) % Immature Gran # (Auto) 0.42 H (0.000-0.0310) K/mm3 Neutrophils % 87.6 H (42-75.0) % Lymphocytes % 5.3 L (20-51) % Neutrophils # 18.6 H (1.3-6.0) K/mm3 Lymphocytes # 1.13 L (1.5-3.5) k/mm3 Anion Gap 14.3 H (6.8-13.8) mmol/L BUN 62 H (3-23) mg/dL Creatinine 2.31 H D (0.4-1.4) mg/dL Est GFR (Non-Af Amer) 22 L D (60-130) mL/min BUN/Creatinine Ratio 26.8 H (9.0-21.6) Random Glucose 202 H D (70-110) mg/dL Creatine Kinase 271 H (0-259) U/L - Exam Constitutional: Present: Alert - AAO x 1, Elderly, Morbidly obese ENT Exam: Present: hearing grossly normal Neck: Present: limited range of motion. Absent: lymphadenopathy (R), lymphadenopathy (L) Respiratory: Present: decreased breath sounds, crackles - ocassional, No rales, No wheezing Cardiovascular/Chest: Present: no JVD, no murmur, irregularly irregular Abdomen: Present: Normal bowel sounds, soft, nontender, obese Extremity: Present: no calf tenderness, lower extremity edema Neurologic: Present: alert - AAO x 1, facial droop, motor weakness - left hemiparesis Assessment/Plan Plan Narrative: Dawna was admitted for multifocal pneumonia and UTI. Her preliminary results of her blood and urine culture and sensitivity showed no pathogen.. Her creatinine bumped up to 2.31 and her white blood cell count went down to 21.2 this morning from 22. We are holding her furosemide and stopped her lisinopril which only is a low-dose. We started her on IV fluids yesterday at 100 mL/h in case this is prerenal.. Will do Renal ultrasound to rule out postrenal causes. Cannot also entirely rule out interstitial nephritis.. I will try again to talk to the family. I do not see her jerking and twitching movements this morning and she is more awake than yesterday. Consider adding Vanco or linezolid to cover for MRSA. Addendum: Lab called and said she is growing staph coagulase negative . It is therefore unlikely stap aureus but either staph epidermidis, saprophyticus or hemolyticus. Likely a contaminant if in 1 bottle but maybe significant if in 2 bottles. Addendum: IVF not continued since 8 pm last night when bag was done. Will start her IVF at 150 ml /hour. - Problems/Diagnosis (1) Acute renal failure Problem: Acute (2) Seizure disorder Problem: Suspected Narrative: focal motor seizure (3) Leukocytosis Problem: Acute Qualifiers: Leukocytosis type: leukemoid reaction Qualified Code(s): D72.823 - Leukemoid reaction (4) Multifocal pneumonia Problem: Acute (5) Left-sided weakness Problem: Acute (6) Anemia Problem: Chronic (7) A-fib Problem: Chronic Qualifiers: (8) CVA (cerebral vascular accident) Problem: Chronic Qualifiers: CVA mechanism: unspecified Qualified Code(s): I63.9 - Cerebral infarction, unspecified (9) Diabetes mellitus type 2 in obese Problem: Chronic (10) HLD (hyperlipidemia) Problem: Chronic Qualifiers: (11) HTN (hypertension) Problem: Chronic Qualifiers: (12) UTI (urinary tract infection) Problem: Acute Qualifiers: Urinary tract infection type: site unspecified Hematuria presence: with hematuria Qualified Code(s): N39.0 - Urinary tract infection, site not specified; R31.9 - Hematuria, unspecified
[2020-01-18] MEDS: POLYETHYLENE GLYCOL 3350 17 GM PACKET PO SCH (09:17)
[2020-01-18] MEDS: DULoxetine HCL 30 MG CAPSULE.SA PO SCH (09:18)
[2020-01-18] MEDS: MIRABEGRON 25 MG TAB.PO.ER PO SCH (09:18)
[2020-01-18] MEDS: SENNOSIDES 8.6 MG TABLET PO SCH (09:19)
[2020-01-18] MEDS: AZITHROMYCIN 250 MG TABLET PO SCH (09:19)
[2020-01-18] MEDS: OXYBUTYNIN CHLORIDE 5 MG TABLET PO SCH ×2 (09:19→20:12)
[2020-01-18] MEDS: SIMETHICONE 80 MG TAB.CHEW PO SCH ×3 (09:20→16:56)
[2020-01-18] MEDS: ACETAMINOPHEN 500 MG TABLET PO SCH ×3 (09:20→16:55)
[2020-01-18] MEDS: CALCIUM CARBONATE/VITAMIN D3 1 TAB TABLET PO SCH ×2 (09:21→20:11)
[2020-01-18] MEDS: ASPIRIN 81 MG TABLET.DR PO SCH (09:21)
[2020-01-18] MEDS: FAMOTIDINE 20 MG TABLET PO SCH (09:21)
[2020-01-18] MEDS: POTASSIUM CHLORIDE 10 MEQ TABLET.SA PO SCH (09:21)
[2020-01-18] MEDS: CEFEPIME HCL 1 GM in DEXTROSE 5 % IN WATER 100 ML IV SCH ×4 (09:35→20:04)
[2020-01-18] MEDS: GABAPENTIN 250 MG/5 ML PO SCH ×3 (09:47→17:24)
[2020-01-18] MEDS: INSULIN LISPRO 100 UNITS/ML VIAL SC SCH ×3 (09:47→16:45)
[2020-01-18] MEDS: INSULIN GLARGINE,HUM.REC.ANLOG 100 UNITS/ML VIAL SC SCH ×2 (09:48→21:16)
[2020-01-18] MEDS: APIXABAN 5 MG TABLET PO SCH ×2 (09:52→20:11)
[2020-01-18] MEDS: NORMAL SALINE 1,000 ML IV PRN ×2 (11:14→18:43)
--- NOTE | 2020-01-18 14:28 | PN ---
Progess Note - Interim Date: 01/18/20 Time: 14:23 Narrative: 01/18/20 14:23 I talked to Kat (daughter) and Terrance () in the clinic- they want DNR but do not want hospice care yet. 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 They still want him to be treated for pneumonia and do the EEG/ XI. If they still want aggressive diagnostic and therapeutic measures , I told them that I am going to see tomorrow if her WBC is not responding significantly with Cefepime and Azithromycin, I will change her Cefepime to Zosyn to cover for anaerobes in case she is having silent aspirations from her SDO/CVA. I am trying to get her latest ST eval/tx in the [facility] otherwise I will put for another consult. I am not considering Vanco/Lizenolid at this time due to her ARF and her culture revealing Staph species coagulase negative. I will also repeat BC x 2 in the morning. 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 .
[2020-01-18] MEDS ORDERED: LORazepam 2 MG/ML DISP.SYRIN IV ONE (16:56)
[2020-01-18] MEDS ORDERED: LORazepam 2 MG/ML DISP.SYRIN IV PRN (17:59)
[2020-01-18] MEDS: BACLOFEN 10 MG TABLET PO SCH (20:10)
[2020-01-18] MEDS: ROSUVASTATIN CALCIUM 20 MG TABLET PO SCH (20:11)
[2020-01-19] MEDS: NORMAL SALINE 1,000 ML IV PRN ×2 (02:01→11:38)
[2020-01-19 06:54] LABS: Anion Gap 15.8 mmol/L (6.8-13.8); BUN/Creatinine Ratio 27.2 (9.0-21.6); Calcium * 9.1 mg/dL (7.9-10.9); Carbon Dioxide 23.7 mmol/L (24-32.6); Estimated Creat Clear 16.7; Potassium 4.5 mmol/L (3.4-4.6)
[2020-01-19 07:02] LABS: Hematocrit 28.6 % (37.0-47.0); Hemoglobin 8.5 gm/dL (12.5-16.0); Mean Cell Volume 77.5 fl (78-100); Mean Corpuscular Hgb Conc 29.7 g/dl (32-36); Mean Platelet Volume 10.8 fl (8-12.5); Neutrophil # 16.9 K/mm3 (1.3-6.0); Platelet Count 157 K/mm3 (150-450); Red Blood Count 3.69 M/mm3 (4.2-5.4); Red Cell Distribution Width 21.3 % (11.5-14.0); White Blood Count 19.6 K/mm3 (4.0-10.5)
--- NOTE | 2020-01-19 08:05 | PN ---
Subjective - Date and Time Seen Date: 01/19/20 Time: 08:04 Subjective Narrative: Patients opens eyes with name call but goes back to sleep. Has had jerky/twitching movements and yesterday started grinding her teeth/mouth hard. IV ativan was given. Objective - Review of Systems Misc: All systems neg except as marked - unobtainable to somnolence - Vitals Vitals: Last Vital Signs Temp 37.1 C 01/19/20 07:00 Pulse 97 01/19/20 07:00 Resp 17 01/19/20 07:00 BP 146/59 01/19/20 07:00 Pulse Ox 92 L 01/19/20 07:00 - Abnormal Lab Findings Abnormal Lab Findings: Abnormal Lab Results 01/19/20 01/19/20 Range/Units 06:17 06:17 WBC 19.6 H (4.0-10.5) K/mm3 RBC 3.69 L (4.2-5.4) M/mm3 Hgb 8.5 L (12.5-16.0) gm/dL Hct 28.6 L (37.0-47.0) % MCV 77.5 L (78-100) fl MCH 23.0 L (27-31) pg MCHC 29.7 L (32-36) g/dl RDW 21.3 H (11.5-14.0) % Immature Gran % (Auto) 1.90 H (0.001-0.429) % Immature Gran # (Auto) 0.37 H (0.000-0.0310) K/mm3 Neutrophils % 86.0 H (42-75.0) % Lymphocytes % 5.9 L (20-51) % Neutrophils # 16.9 H (1.3-6.0) K/mm3 Lymphocytes # 1.15 L (1.5-3.5) k/mm3 Monocytes # 1.1 H (0.0-1.0) k/mm3 Carbon Dioxide 23.7 L (24-32.6) mmol/L Anion Gap 15.8 H (6.8-13.8) mmol/L BUN 67 H (3-23) mg/dL Creatinine 2.46 H (0.4-1.4) mg/dL Est GFR (Non-Af Amer) 20 L (60-130) mL/min BUN/Creatinine Ratio 27.2 H (9.0-21.6) Random Glucose 179 H (70-110) mg/dL - Exam Constitutional: Present: Alert - AAO x 1 ENT Exam: Present: hearing grossly normal Neck: Present: limited range of motion. Absent: lymphadenopathy (R), lymphadenopathy (L) Respiratory: Present: decreased breath sounds, No rales, No wheezing Cardiovascular/Chest: Present: no JVD, no murmur, irregularly irregular Abdomen: Present: Normal bowel sounds, soft, nontender, obese Extremity: Present: no calf tenderness, lower extremity edema Assessment/Plan Plan Narrative: Cheyanne is day 4 over IV cefepime. Her white blood cell count did not significantly go down . I will change her IV cefepime to IV Zosyn to cover a broader range of bacteria to include anaerobes in case she is having silent aspirations. This will also help with her kidney function in case it is inte rstitial nephritis. She does look like she has intermittent focal seizures and sometimes is a bit going into complex partial seizure. At one time yester afternoonday it looked like she was going into generalized convulsive seizure. We have increased her gabapentin. We also have Ativan IV as needed basis. Her renal ultrasound does not show any post renal probable causes of acute renal failure. We we had given her IV fluids and her creatinine is not yet improving and in fact continues to go up. It is possible that this is a renal interstitial nephritis as her creatinine bumped up when we started her on IV cephalosporin. 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 Urinary tract infection has been ruled out as her urine culture showed no pathogen. Her blood culture did grow in 1 bottle Staphylococcus epidermidis which is a contaminant. I will not be here over the weekend and next week and I will sign this patient to the physician retail wireless sales consultant. - Problems/Diagnosis (1) Acute renal failure Problem: Acute (2) Seizure disorder Problem: Suspected (3) Leukocytosis Problem: Acute Qualifiers: Leukocytosis type: leukemoid reaction Qualified Code(s): D72.823 - Leukemoid reaction (4) Cognitive changes Problem: Acute (5) Multifocal pneumonia Problem: Acute (6) Left-sided weakness Problem: Acute (7) Anemia Problem: Chronic (8) A-fib Problem: Chronic Qualifiers: (9) CVA (cerebral vascular accident) Problem: Chronic Qualifiers: CVA mechanism: unspecified Qualified Code(s): I63.9 - Cerebral infarction, unspecified (10) Diabetes mellitus type 2 in obese Problem: Chronic (11) HLD (hyperlipidemia) Problem: Chronic Qualifiers: (12) HTN (hypertension) Problem: Chronic Qualifiers: (13) UTI (urinary tract infection) Problem: Ruled-out Qualifiers: Urinary tract infection type: site unspecified Hematuria presence: with hematuria Qualified Code(s): N39.0 - Urinary tract infection, site not specified; R31.9 - Hematuria, unspecified Narrative: ruled out.
[2020-01-19] MEDS: APIXABAN 5 MG TABLET PO SCH ×2 (08:25→20:48)
[2020-01-19] MEDS: POLYETHYLENE GLYCOL 3350 17 GM PACKET PO SCH (08:25)
[2020-01-19] MEDS: OXYBUTYNIN CHLORIDE 5 MG TABLET PO SCH ×2 (08:25→20:48)
[2020-01-19] MEDS: CEFEPIME HCL 1 GM in DEXTROSE 5 % IN WATER 100 ML IV SCH ×2 (08:25)
[2020-01-19] MEDS: DULoxetine HCL 30 MG CAPSULE.SA PO SCH (08:25)
[2020-01-19] MEDS: ACETAMINOPHEN 500 MG TABLET PO SCH ×3 (08:26→17:34)
[2020-01-19] MEDS: SIMETHICONE 80 MG TAB.CHEW PO SCH ×3 (08:26→17:36)
[2020-01-19] MEDS: CALCIUM CARBONATE/VITAMIN D3 1 TAB TABLET PO SCH ×2 (08:26→20:47)
[2020-01-19] MEDS: ASPIRIN 81 MG TABLET.DR PO SCH (08:27)
[2020-01-19] MEDS: POTASSIUM CHLORIDE 10 MEQ TABLET.SA PO SCH (08:27)
[2020-01-19] MEDS: MIRABEGRON 25 MG TAB.PO.ER PO SCH (08:27)
[2020-01-19] MEDS: AZITHROMYCIN 250 MG TABLET PO SCH (08:28)
[2020-01-19] MEDS: SENNOSIDES 8.6 MG TABLET PO SCH (08:28)
[2020-01-19] MEDS: INSULIN GLARGINE,HUM.REC.ANLOG 100 UNITS/ML VIAL SC SCH ×2 (08:41→20:48)
[2020-01-19] MEDS: INSULIN LISPRO 100 UNITS/ML VIAL SC SCH ×3 (08:42→17:35)
[2020-01-19] MEDS: GABAPENTIN 250 MG/5 ML PO SCH (08:45)
[2020-01-19] MEDS: FUROSEMIDE 80 MG TABLET PO SCH (11:19)
[2020-01-19] MEDS: PIPERACILLIN SODIUM/TAZOBACTAM 3.375 GM in DEXTROSE 5 % IN WATER 100 ML IV SCH ×4 (11:40→19:24)
--- NOTE | 2020-01-19 12:26 | PN ---
Gregory Note - Interim Date: 01/19/20 Time: 12:21 Narrative: 01/19/20 12:[address] Berry is abnormal and patient has seizures activity. Recommends discontinuing gabapentin and starting her on Keppra 1000 mg IV twice daily and repeat EEG on Wednesday. He is also recommending an MRI. if with bleed stop eliquis. Discussed this with Dr. Gustafson. He does want to have the MRI done. I told him that I have changed her antibiotics to IV Zosyn in case the cefepime/Rocephin caused an interstitial nephritis leading to an acute renal failure. At the same time we will also be covering for anaerobes in case she was having silent aspiration from her seizure activities. Her chest x-ray is showing interval improvement of aeration and pneumonia. The family would like to see how she will be doing over the weekend. I will sign out the patient to physician bonding machine tender as I am on vacation and will not be back until after next week.
[2020-01-19] MEDS: BACLOFEN 10 MG TABLET PO SCH (20:47)
[2020-01-19] MEDS: ROSUVASTATIN CALCIUM 20 MG TABLET PO SCH (20:47)
[2020-01-19] MEDS: ACETAMINOPHEN 325 MG TABLET PO PRN (21:04)
[2020-01-20] MEDS: PIPERACILLIN SODIUM/TAZOBACTAM 3.375 GM in DEXTROSE 5 % IN WATER 100 ML IV SCH ×4 (03:25→15:59)
[2020-01-20] MEDS: NORMAL SALINE 1,000 ML IV PRN ×3 (04:39→21:34)
[2020-01-20 07:56] LABS: Hematocrit 27.6 % (37.0-47.0); Mean Cell Volume 79.8 fl (78-100); Mean Corpuscular Hemoglobin 22.8 pg (27-31); Mean Corpuscular Hgb Conc 28.6 g/dl (32-36); Mean Platelet Volume 10.5 fl (8-12.5); Neutrophil # 14.5 K/mm3 (1.3-6.0); Neutrophil % 85.8 % (42-75.0); Platelet Count 154 K/mm3 (150-450); Red Blood Count 3.46 M/mm3 (4.2-5.4); Red Cell Distribution Width 21.6 % (11.5-14.0); White Blood Count 16.9 K/mm3 (4.0-10.5)
[2020-01-20 07:57] LABS: Albumin * 2.2 gm/dl (3.4-5.0); Anion Gap 14.8 mmol/L (6.8-13.8); BUN/Creatinine Ratio 26.4 (9.0-21.6); Bilirubin, Total 0.7 mg/dL (0.0-1.1); Ca. Corrected For Albumin 10.1 mg/dL (8.4-10.2); Carbon Dioxide 21.7 mmol/L (24-32.6); Potassium 4.5 mmol/L (3.4-4.6)
[2020-01-20 08:01] LABS: Hemoglobin 7.9 gm/dL (12.5-16.0)
[2020-01-20] MEDS: FAMOTIDINE 20 MG TABLET PO SCH (09:53)
[2020-01-20] MEDS: MIRABEGRON 25 MG TAB.PO.ER PO SCH (09:53)
[2020-01-20] MEDS: CALCIUM CARBONATE/VITAMIN D3 1 TAB TABLET PO SCH ×2 (09:53→21:28)
[2020-01-20] MEDS: SIMETHICONE 80 MG TAB.CHEW PO SCH ×3 (09:53→17:20)
[2020-01-20] MEDS: ASPIRIN 81 MG TABLET.DR PO SCH (09:54)
[2020-01-20] MEDS: SENNOSIDES 8.6 MG TABLET PO SCH (09:54)
[2020-01-20] MEDS: INSULIN LISPRO 100 UNITS/ML VIAL SC SCH ×3 (09:54→17:25)
[2020-01-20] MEDS: DULoxetine HCL 30 MG CAPSULE.SA PO SCH (09:54)
[2020-01-20] MEDS: AZITHROMYCIN 250 MG TABLET PO SCH (09:54)
[2020-01-20] MEDS: APIXABAN 5 MG TABLET PO SCH ×2 (09:54→21:27)
[2020-01-20] MEDS: ACETAMINOPHEN 500 MG TABLET PO SCH ×3 (09:54→17:20)
[2020-01-20] MEDS: OXYBUTYNIN CHLORIDE 5 MG TABLET PO SCH ×2 (09:54→21:27)
[2020-01-20] MEDS: POLYETHYLENE GLYCOL 3350 17 GM PACKET PO SCH (09:55)
[2020-01-20] MEDS: INSULIN GLARGINE,HUM.REC.ANLOG 100 UNITS/ML VIAL SC SCH ×2 (09:55→21:29)
[2020-01-20] MEDS: FUROSEMIDE 80 MG TABLET PO SCH (10:06)
[2020-01-20] MEDS: POTASSIUM CHLORIDE 10 MEQ TABLET.SA PO SCH (10:06)
--- NOTE | 2020-01-20 20:27 | PN ---
Subjective - Date and Time Seen Date: 01/20/20 Time: 20:16 Subjective Narrative: Patient comfortably sitting in chair. She does have right arm jerking. Patient minimally responsive to questions though she does deny discomfort. Currently being treated for multifocal pneumonia, UTI, and seizure activity. Her vital signs are stable and there are no acute events overnight. Objective Objective Narrative: Patient looks at me and mumbles incoherent words when addressed. Nurse states that this is more than she is said or been active since being here. Unable to obtain review of symptoms - Vitals Vitals: Last Vital Signs Temp 37.7 C 01/20/20 17:46 Pulse 93 01/20/20 17:46 Resp 18 01/20/20 17:46 BP 111/32 01/20/20 17:46 Pulse Ox 96 01/20/20 17:46 - Abnormal Lab Findings Abnormal Lab Findings: Abnormal Lab Results 01/20/20 01/20/20 Range/Units 07:39 07:39 WBC 16.9 H (4.0-10.5) K/mm3 RBC 3.46 L (4.2-5.4) M/mm3 Hgb 7.9 L* (12.5-16.0) gm/dL Hct 27.6 L (37.0-47.0) % MCH 22.8 L (27-31) pg MCHC 28.6 L (32-36) g/dl RDW 21.6 H (11.5-14.0) % Immature Gran % (Auto) 0.50 H (0.001-0.429) % Immature Gran # (Auto) 0.09 H (0.000-0.0310) K/mm3 Neutrophils % 85.8 H (42-75.0) % Lymphocytes % 6.2 L (20-51) % Neutrophils # 14.5 H (1.3-6.0) K/mm3 Lymphocytes # 1.05 L (1.5-3.5) k/mm3 Monocytes # 1.1 H (0.0-1.0) k/mm3 Carbon Dioxide 21.7 L (24-32.6) mmol/L Anion Gap 14.8 H (6.8-13.8) mmol/L BUN 73 H (3-23) mg/dL Creatinine 2.76 H (0.4-1.4) mg/dL Est GFR (Non-Af Amer) 18 L (60-130) mL/min BUN/Creatinine Ratio 26.4 H (9.0-21.6) Random Glucose 186 H (70-110) mg/dL Alkaline Phosphatase 177 H (50-170) U/L Albumin 2.2 L (3.4-5.0) gm/dl - Exam Constitutional: Present: Alert. Absent: Oriented x3 - X1, Acute distress ENT Exam: Present: hearing grossly normal. Absent: nasal drainage Respiratory: Present: decreased breath sounds - Bilaterally. Absent: crackles, wheezing Cardiovascular/Chest: Present: no murmur, irregularly irregular Abdomen: Present: Normal bowel sounds, soft, nontender, nondistended Extremity: Present: lower extremity edema - Bilateral, other - Right upper extremity jerking Appearance: Absent: appropriate insight Assessment/Plan Plan Narrative: Nessa is day 5 of IV antibiotics. 24 hours of Zosyn given. Patient's kidney failure has decreased and will switch her Zosyn to twice daily instead of 3 times daily. Leukocytosis did improve after switching her to Zosyn from cefepime. We will continue to monitor. Repeat CBC in the morning. Kidney function has continued to deteriorate with an elevated creatinine and a decrease GFR. We will stop Myrbetriq, Crestor, and Cymbalta as well due to kidney function. Otherwise patient is afebrile and her vital signs been stable. Still has to be what appears seizure activity with her right upper extremity and a grinding of teeth. She currently is on Keppra twice daily. Also on gabapentin and Ativan. Kidney function continues to deteriorate as stated above. Increase her IV fluids to 150 an hour and will repeat CMP in the morning. Stopped all nephrotoxic medications and adjusted her IV antibiotics accordingly. We will continue to monitor. I do not know patient's cognitive baseline but according to previous note from Dr. So, he thinks is due to multi-infarct dementia as well as encephalomalacic changes. Repeat blood culture negative for growth at 24 hours. Initial cultures growing staph epidermidis. Urine culture negative for infection. Her vital signs been stable otherwise, she is been afebrile. Leukocytosis improving, continue IV antibiotics. Patient satting appropriately and is not tachypneic. We will continue to monitor her pneumonia but appears from a clinical standpoint to be improving. Patient did have a decrease hemoglobin this morning at 7.9. Repeat CBC in the morning, consider transfusion if drops below 7. Patient has history of A. fib, CVA, type 2 diabetes, hyperlipidemia, hypertension. Nurse to call questions or concerns, continue above-stated treatment plan. - Problems/Diagnosis (1) Multifocal pneumonia Problem: Acute (2) Acute renal failure Problem: Acute (3) Seizure disorder Problem: Suspected (4) Bilateral lower extremity edema Problem: Acute (5) Hypertension Problem: Chronic (6) Hyperlipemia Problem: Chronic Qualifiers: Hyperlipidemia type: mixed hyperlipidemia Qualified Code(s): E78.2 - Mixed hyperlipidemia (7) Diabetes mellitus type 2 in obese Problem: Chronic (8) CVA (cerebral vascular accident) Problem: Chronic Qualifiers: CVA mechanism: unspecified Qualified Code(s): I63.9 - Cerebral infarction, unspecified (9) Acute UTI (urinary tract infection) Problem: Resolved (10) Left-sided weakness Problem: Acute (11) Leukocytosis Problem: Acute Qualifiers: Leukocytosis type: leukemoid reaction Qualified Code(s): D72.823 - Leukemoid reaction (12) HTN (hypertension) Problem: Chronic Qualifiers: (13) HLD (hyperlipidemia) Problem: Chronic Qualifiers: (14) CVA (cerebral vascular accident) Problem: Chronic Qualifiers: CVA mechanism: unspecified Qualified Code(s): I63.9 - Cerebral infarction, unspecified
[2020-01-20] MEDS ORDERED: INSULIN GLARGINE,HUM.REC.ANLOG 100 UNITS/ML VIAL SC ONE (21:24)
[2020-01-20] MEDS: BACLOFEN 10 MG TABLET PO SCH (21:27)
[2020-01-21] MEDS: NORMAL SALINE 1,000 ML IV PRN ×4 (02:57→23:33)
[2020-01-21] MEDS: PIPERACILLIN SODIUM/TAZOBACTAM 3.375 GM in DEXTROSE 5 % IN WATER 100 ML IV SCH ×4 (02:58→16:40)
[2020-01-21 06:52] LABS: Hematocrit 26.7 % (37.0-47.0); Mean Cell Volume 78.8 fl (78-100); Mean Corpuscular Hgb Conc 29.2 g/dl (32-36); Neutrophil # 12.5 K/mm3 (1.3-6.0); Neutrophil % 83.9 % (42-75.0); Platelet Count 170 K/mm3 (150-450); Red Blood Count 3.39 M/mm3 (4.2-5.4); Red Cell Distribution Width 21.8 % (11.5-14.0); White Blood Count 14.8 K/mm3 (4.0-10.5)
[2020-01-21 07:07] LABS: Anion Gap 14.4 mmol/L (6.8-13.8); BUN/Creatinine Ratio 26.2 (9.0-21.6); Bilirubin, Total 0.6 mg/dL (0.0-1.1); Ca. Corrected For Albumin 10.3 mg/dL (8.4-10.2); Carbon Dioxide 23.1 mmol/L (24-32.6); Potassium 4.5 mmol/L (3.4-4.6); Total Protein 6.9 gm/dL (6.2-8.2)
[2020-01-21 07:11] LABS: Hemoglobin 7.8 gm/dL (12.5-16.0)
[2020-01-21] MEDS: SIMETHICONE 80 MG TAB.CHEW PO SCH ×3 (08:36→17:42)
[2020-01-21] MEDS: ASPIRIN 81 MG TABLET.DR PO SCH (08:36)
[2020-01-21] MEDS: CALCIUM CARBONATE/VITAMIN D3 1 TAB TABLET PO SCH ×2 (08:36→20:28)
[2020-01-21] MEDS: ACETAMINOPHEN 500 MG TABLET PO SCH ×3 (08:37→17:42)
[2020-01-21] MEDS: OXYBUTYNIN CHLORIDE 5 MG TABLET PO SCH ×2 (08:37→20:30)
[2020-01-21] MEDS: APIXABAN 5 MG TABLET PO SCH ×2 (08:37→20:29)
[2020-01-21] MEDS: SENNOSIDES 8.6 MG TABLET PO SCH (08:37)
[2020-01-21] MEDS: POTASSIUM CHLORIDE 10 MEQ TABLET.SA PO SCH (08:38)
[2020-01-21] MEDS: INSULIN GLARGINE,HUM.REC.ANLOG 100 UNITS/ML VIAL SC SCH ×2 (08:38→20:35)
[2020-01-21] MEDS: POLYETHYLENE GLYCOL 3350 17 GM PACKET PO SCH (08:38)
[2020-01-21] MEDS: INSULIN LISPRO 100 UNITS/ML VIAL SC SCH ×3 (08:38→17:40)
[2020-01-21] MEDS: FUROSEMIDE 80 MG TABLET PO SCH (08:39)
--- NOTE | 2020-01-21 11:35 | PN ---
Subjective - Date and Time Seen Date: 01/21/20 Time: 11:02 Subjective Narrative: Patient is much more comfortable today. Patient's daughter and other family members are at bedside. Patient conversing with them better than she has since she has been here though her speech is still slightly garbled and hard to distinguish. Patient is able to say she has no pain or discomfort. Patient hemoglobin stabilized. Her vital signs been stable. Her kidney function continues to deteriorate. Family wishes her to be reevaluated on Wednesday for hospice and do not want any aggressive treatment at this time. Objective Objective Narrative: Patient denies pain. Rest of review systems unable to be obtained - Vitals Vitals: Last Vital Signs Temp 37.3 C 01/21/20 10:28 Pulse 85 01/21/20 10:28 Resp 16 01/21/20 10:28 BP 106/44 01/21/20 10:28 Pulse Ox 93 01/21/20 10:28 - Abnormal Lab Findings Abnormal Lab Findings: Abnormal Lab Results 01/21/20 01/21/20 Range/Units 06:45 06:45 WBC 14.8 H (4.0-10.5) K/mm3 RBC 3.39 L (4.2-5.4) M/mm3 Hgb 7.8 L* (12.5-16.0) gm/dL Hct 26.7 L (37.0-47.0) % MCH 23.0 L (27-31) pg MCHC 29.2 L (32-36) g/dl RDW 21.8 H (11.5-14.0) % Immature Gran % (Auto) 0.90 H (0.001-0.429) % Immature Gran # (Auto) 0.13 H (0.000-0.0310) K/mm3 Neutrophils % 83.9 H (42-75.0) % Lymphocytes % 7.3 L (20-51) % Neutrophils # 12.5 H (1.3-6.0) K/mm3 Lymphocytes # 1.09 L (1.5-3.5) k/mm3 Chloride 107 H (97-106) mmol/L Carbon Dioxide 23.1 L (24-32.6) mmol/L Anion Gap 14.4 H (6.8-13.8) mmol/L BUN 79 H (3-23) mg/dL Creatinine 3.01 H (0.4-1.4) mg/dL Est GFR (Non-Af Amer) 16 L (60-130) mL/min BUN/Creatinine Ratio 26.2 H (9.0-21.6) Calcium Adj for Albumin 10.3 H (8.4-10.2) mg/dL Alkaline Phosphatase 213 H (50-170) U/L Albumin 2.0 L (3.4-5.0) gm/dl - Exam Constitutional: Present: Alert, Elderly. Absent: Oriented x3 - X1, Acute distress Respiratory: Present: no accessory muscle use, decreased breath sounds. Absent: crackles, wheezing Cardiovascular/Chest: Present: no murmur, irregularly irregular Abdomen: Present: soft, nontender, nondistended Lymphatic: Present: other - Some bloody sputum likely from patient biting inside of cheek when she clenches her teeth Neurologic: Present: other - Right arm jerking, clenching of teeth Appearance: Present: impaired insight Cauti Physician Documentation - Urinary Catheter Management Urethral (Contreras) Date of Insertion: 01/21/20 Time of Insertion: 17:39 Assessment/Plan Plan Narrative: Nessa is day 6 of IV antibiotics. 48 hours of Zosyn given. Patient's kidney failure continues to deteriorate, GFR down to 18was 33 upon admission. All nephrotoxic medications have been stopped. Patient had increase fluids. Unsure what else to do with her kidney function and family does not wish to be transferred for nephrology and wants to wait for hospice consult before deciding whether they want dialysis. Leukocytosis did continue to improve after switching her to Zosyn. We will continue to monitor. Otherwise patient is afebrile and her vital signs been stable. Still has to be what appears seizure activity with her right upper extremity and a grinding of teeth. She currently is on Keppra twice daily. Also on gabapentin and Ativan. Decreased cognition likely due to multi-infarct dementia as well as encephalomalacic changes. Repeat blood culture negative for growth at 48 hours. Urine culture negative for infection. vital signs been stable, she is been afebrile. Leukocytosis improving, continue IV antibiotics. Patient satting appropriately and is not tachypneic. We will continue to monitor her pneumonia but appears from a clinical standpoint to be improving. Patient did have a decrease hemoglobin yesterday at 7.9, repeat CBC this morning 7.8 repeat CBC and CMP tomorrow Patient has history of A. fib, CVA, type 2 diabetes, hyperlipidemia, hyperte nsion. Nurse to call with questions or concerns, continue above-stated treatment plan. - Problems/Diagnosis (1) Multifocal pneumonia Problem: Acute (2) Acute renal failure Problem: Acute (3) Seizure disorder Problem: Suspected (4) Bilateral lower extremity edema Problem: Acute (5) Hypertension Problem: Chronic (6) Hyperlipemia Problem: Chronic Qualifiers: Hyperlipidemia type: mixed hyperlipidemia Qualified Code(s): E78.2 - Mixed hyperlipidemia (7) Diabetes mellitus type 2 in obese Problem: Chronic (8) CVA (cerebral vascular accident) Problem: Chronic Qualifiers: CVA mechanism: unspecified Qualified Code(s): I63.9 - Cerebral infarction, unspecified (9) Acute UTI (urinary tract infection) Problem: Resolved (10) Left-sided weakness Problem: Acute (11) Leukocytosis Problem: Acute Qualifiers: Leukocytosis type: leukemoid reaction Qualified Code(s): D72.823 - Leukemoid reaction (12) HTN (hypertension) Problem: Chronic Qualifiers: (13) HLD (hyperlipidemia) Problem: Chronic Qualifiers: (14) CVA (cerebral vascular accident) Problem: Chronic Qualifiers: CVA mechanism: unspecified Qualified Code(s): I63.9 - Cerebral infarction, unspecified
[2020-01-21] MEDS: BACLOFEN 10 MG TABLET PO SCH (20:30)
[2020-01-22] MEDS: PIPERACILLIN SODIUM/TAZOBACTAM 3.375 GM in DEXTROSE 5 % IN WATER 100 ML IV SCH ×4 (03:14→15:23)
[2020-01-22 06:46] LABS: Hematocrit 24.7 % (37.0-47.0); Mean Cell Volume 76.9 fl (78-100); Mean Corpuscular Hemoglobin 22.7 pg (27-31); Mean Corpuscular Hgb Conc 29.6 g/dl (32-36); Mean Platelet Volume 10.6 fl (8-12.5); Neutrophil # 12.8 K/mm3 (1.3-6.0); Neutrophil % 84.6 % (42-75.0); Platelet Count 194 K/mm3 (150-450); Red Blood Count 3.21 M/mm3 (4.2-5.4); Red Cell Distribution Width 21.9 % (11.5-14.0); White Blood Count 15.2 K/mm3 (4.0-10.5)
[2020-01-22 06:57] LABS: Albumin * 1.7 gm/dl (3.4-5.0); Anion Gap 17.9 mmol/L (6.8-13.8); BUN/Creatinine Ratio 23.2 (9.0-21.6); Bilirubin, Total 0.6 mg/dL (0.0-1.1); Ca. Corrected For Albumin 10.3 mg/dL (8.4-10.2); Calcium * 8.8 mg/dL (7.9-10.9); Carbon Dioxide 21.2 mmol/L (24-32.6); Potassium 4.1 mmol/L (3.4-4.6); Total Protein 6.5 gm/dL (6.2-8.2)
[2020-01-22] MEDS: NORMAL SALINE 1,000 ML IV PRN ×3 (07:11→22:03)
[2020-01-22 07:12] LABS: Hemoglobin 7.3 gm/dL (12.5-16.0)
[2020-01-22] MEDS: ASPIRIN 81 MG TABLET.DR PO SCH ×2 (07:55→08:21)
[2020-01-22] MEDS: CALCIUM CARBONATE/VITAMIN D3 1 TAB TABLET PO SCH ×3 (07:55→21:56)
[2020-01-22] MEDS: APIXABAN 5 MG TABLET PO SCH ×2 (07:56→08:22)
[2020-01-22] MEDS: FUROSEMIDE 80 MG TABLET PO SCH ×2 (07:56→08:22)
[2020-01-22] MEDS: OXYBUTYNIN CHLORIDE 5 MG TABLET PO SCH ×3 (07:56→21:56)
[2020-01-22] MEDS: POTASSIUM CHLORIDE 10 MEQ TABLET.SA PO SCH ×2 (07:56→08:22)
[2020-01-22] MEDS: FAMOTIDINE 20 MG TABLET PO SCH ×2 (07:58→08:22)
[2020-01-22] MEDS: POLYETHYLENE GLYCOL 3350 17 GM PACKET PO SCH ×2 (07:58→08:22)
[2020-01-22] MEDS: SIMETHICONE 80 MG TAB.CHEW PO SCH ×4 (07:58→17:27)
[2020-01-22] MEDS: INSULIN GLARGINE,HUM.REC.ANLOG 100 UNITS/ML VIAL SC SCH ×2 (07:59→21:55)
[2020-01-22] MEDS: SENNOSIDES 8.6 MG TABLET PO SCH (07:59)
[2020-01-22] MEDS: ACETAMINOPHEN 500 MG TABLET PO SCH ×3 (07:59→17:27)
[2020-01-22] MEDS: INSULIN LISPRO 100 UNITS/ML VIAL SC SCH ×3 (08:00→17:24)
[2020-01-22] MEDS ORDERED: guaiFENesin 100 MG/5 ML SYRUP PO PRN (11:15)
--- NOTE | 2020-01-22 16:48 | PN ---
Subjective - Date and Time Seen Date: 01/22/20 Time: 16:48 Subjective Narrative: Patient is resting more comfortable today. She is not jerking or clenching her teeth right now. Her vitals are stable and no acute events overnight. Her hemoglobin decreased overnight to 7.3 Family is not currently in the room. Plan is for hospice meeting later today to discuss plan of care going forward. Her kidney function mildly improved overnight. Objective Objective Narrative: Patient denies pain. Not conversant but comfortable. Rest of review of symptoms not obtained. - Vitals Vitals: Last Vital Signs Temp 37.5 C 01/22/20 14:06 Pulse 85 01/22/20 15:39 Resp 22 H 01/22/20 14:06 BP 123/36 01/22/20 14:06 Pulse Ox 96 01/22/20 14:06 - Abnormal Lab Findings Abnormal Lab Findings: Abnormal Lab Results 01/22/20 01/22/20 Range/Units 06:20 06:20 WBC 15.2 H (4.0-10.5) K/mm3 RBC 3.21 L (4.2-5.4) M/mm3 Hgb 7.3 L* (12.5-16.0) gm/dL Hct 24.7 L (37.0-47.0) % MCV 76.9 L (78-100) fl MCH 22.7 L (27-31) pg MCHC 29.6 L (32-36) g/dl RDW 21.9 H (11.5-14.0) % Immature Gran % (Auto) 1.90 H (0.001-0.429) % Immature Gran # (Auto) 0.29 H (0.000-0.0310) K/mm3 Neutrophils % 84.6 H (42-75.0) % Lymphocytes % 6.6 L (20-51) % Neutrophils # 12.8 H (1.3-6.0) K/mm3 Lymphocytes # 1.00 L (1.5-3.5) k/mm3 Sodium 145 H (132-142) mmol/L Plasma Sodium 146 H (130-142) mmol/L Chloride 110 H (97-106) mmol/L Carbon Dioxide 21.2 L (24-32.6) mmol/L Anion Gap 17.9 H (6.8-13.8) mmol/L BUN 68 H (3-23) mg/dL Creatinine 2.93 H (0.4-1.4) mg/dL Est GFR (Non-Af Amer) 16 L (60-130) mL/min BUN/Creatinine Ratio 23.2 H (9.0-21.6) Random Glucose 162 H D (70-110) mg/dL Calcium Adj for Albumin 10.3 H (8.4-10.2) mg/dL Alkaline Phosphatase 226 H (50-170) U/L Albumin 1.7 L (3.4-5.0) gm/dl - Exam Constitutional: Present: Somnolent, Elderly Respiratory: Present: decreased breath sounds. Absent: crackles, wheezing Cardiovascular/Chest: Present: regular rate, rhythm, no murmur Skin Exam: Present: normal color, warm/dry Cauti Physician Documentation - Urinary Catheter Management Urethral (Conterras) Date of Insertion: 01/21/20 Time of Insertion: 17:39 Assessment/Plan Plan Narrative: Nessa is day 7 of IV antibiotics. 72 hours of Zosyn given. Leukocytosis slightly worsened overnight. We will continue to monitor. Hemoglobin also dropped , will transfuse if it drops below 7 unless we make her comfort measures only following hospice talk. Kidney function mildly improved, will continue to monitor. Going to decrease flu ids to 50 ml for a day. Repeat CMP in the am. Hospice talk planned for later today to determine plan of care. Will continue current treatment plan otherwise. EEG planned for later today to look for efficacy of keppra. Otherwise patient is afebrile and her vital signs been stable. No clenching of teeth or arm jerking today when I examined her, hopefully maren is working. Also on gabapentin and Ativan. Decreased cognition likely due to multi-infarct dementia as well as encephalomalacic changes. Repeat blood culture negative for growth at 48 hours. Urine culture negative for infection. vital signs been stable, she is been afebrile. Patient satting appropriately and is not tachypneic. We will continue to monitor her pneumonia but appears from a clinical standpoint to be improving. Patient did have a decrease hemoglobin yesterday at 7.8, repeat CBC this morning 7.3 repeat CBC and CMP tomorrow Patient has history of A. fib, CVA, type 2 diabetes, hyperlipidemia, hypertension. Nurse to call with questions or concerns, continue above-stated treatment plan. - Problems/Diagnosis (1) Multifocal pneumonia Problem: Acute (2) Acute renal failure Problem: Acute (3) Seizure disorder Problem: Suspected (4) Bilateral lower extremity edema Problem: Acute (5) Hypertension Problem: Chronic (6) Hyperlipemia Problem: Chronic Qualifiers: Hyperlipidemia type: mixed hyperlipidemia Qualified Code(s): E78.2 - Mixed hyperlipidemia (7) Diabetes mellitus type 2 in obese Problem: Chronic (8) CVA (cerebral vascular accident) Problem: Chronic Qualifiers: CVA mechanism: unspecified Qualified Code(s): I63.9 - Cerebral infarction, unspecified (9) Acute UTI (urinary tract infection) Problem: Resolved (10) Left-sided weakness Problem: Acute (11) Leukocytosis Problem: Acute Qualifiers: Leukocytosis type: leukemoid reaction Qualified Code(s): D72.823 - Leukemoid reaction (12) HTN (hypertension) Problem: Chronic Qualifiers: (13) HLD (hyperlipidemia) Problem: Chronic Qualifiers: (14) CVA (cerebral vascular accident) Problem: Chronic Qualifiers: CVA mechanism: unspecified Qualified Code(s): I63.9 - Cerebral infarction, unspecified
[2020-01-22] MEDS: BACLOFEN 10 MG TABLET PO SCH (21:56)
[2020-01-23] MEDS: PIPERACILLIN SODIUM/TAZOBACTAM 3.375 GM in DEXTROSE 5 % IN WATER 100 ML IV SCH ×4 (03:02→16:23)
[2020-01-23 06:35] LABS: Hematocrit 25.4 % (37.0-47.0); Mean Cell Volume 77.4 fl (78-100); Mean Corpuscular Hemoglobin 22.9 pg (27-31); Mean Corpuscular Hgb Conc 29.5 g/dl (32-36); Mean Platelet Volume 10.7 fl (8-12.5); Neutrophil # 12.1 K/mm3 (1.3-6.0); Neutrophil % 82.9 % (42-75.0); Platelet Count 226 K/mm3 (150-450); Red Blood Count 3.28 M/mm3 (4.2-5.4); Red Cell Distribution Width 22.2 % (11.5-14.0); White Blood Count 14.6 K/mm3 (4.0-10.5)
[2020-01-23 07:16] LABS: Albumin * 1.8 gm/dl (3.4-5.0); BUN/Creatinine Ratio 21.4 (9.0-21.6); Bilirubin, Total 0.6 mg/dL (0.0-1.1); Ca. Corrected For Albumin 9.9 mg/dL (8.4-10.2); Calcium * 8.5 mg/dL (7.9-10.9); Total Protein 5.8 gm/dL (6.2-8.2)
[2020-01-23 07:24] LABS: Hemoglobin 7.5 gm/dL (12.5-16.0)
[2020-01-23] MEDS: POLYETHYLENE GLYCOL 3350 17 GM PACKET PO SCH (08:29)
[2020-01-23] MEDS: OXYBUTYNIN CHLORIDE 5 MG TABLET PO SCH ×2 (08:34→20:33)
[2020-01-23] MEDS: ACETAMINOPHEN 500 MG TABLET PO SCH ×3 (08:34→17:41)
[2020-01-23] MEDS: SIMETHICONE 80 MG TAB.CHEW PO SCH ×3 (08:34→17:41)
[2020-01-23] MEDS: POTASSIUM CHLORIDE 10 MEQ TABLET.SA PO SCH (08:35)
[2020-01-23] MEDS: CALCIUM CARBONATE/VITAMIN D3 1 TAB TABLET PO SCH ×2 (08:35→20:33)
[2020-01-23] MEDS: ASPIRIN 81 MG TABLET.DR PO SCH (08:35)
[2020-01-23] MEDS: FUROSEMIDE 80 MG TABLET PO SCH (08:36)
[2020-01-23] MEDS: SENNOSIDES 8.6 MG TABLET PO SCH (08:41)
[2020-01-23] MEDS: INSULIN LISPRO 100 UNITS/ML VIAL SC SCH ×3 (08:41→17:44)
[2020-01-23] MEDS: INSULIN GLARGINE,HUM.REC.ANLOG 100 UNITS/ML VIAL SC SCH ×2 (13:15→20:35)
[2020-01-23] MEDS: NORMAL SALINE 1,000 ML IV PRN (19:55)
[2020-01-23] MEDS: BACLOFEN 10 MG TABLET PO SCH (20:33)
--- NOTE | 2020-01-23 21:16 | PN ---
Subjective - Date and Time Seen Date: 01/23/20 Time: 11:50 Subjective Narrative: Patient resting comfortably in bed. and daughter are in the room this morning. Discussed hospice again in detail, plan is for patient to return back to her care center once her infection clears on hospice. Will discontinue any non-necessary medications tomorrow. White blood cell count improved today and is the lowest been since admission. Should continue to improve. Vital signs are stable and she is afebrile. Kidney function remains unchanged, GFR of 16 today. Family does not wish for transfusions or dialysis, again they stated understanding what hospice is and they are in agreement with it. They want her to be made comfortable. Patient is currently comfortable and resting easy. Of note I did speak with the neurologist yesterday who stated that she is still having some seizure activity seen on EEG. She currently is no longer clenching her teeth or having right upper extremity jerking motions. Keppra appears to be working appropriately from a clinical stand point but recommended to increase it to 1500 BID. Objective Objective Narrative: Patient resting comfortably, she was not awoke for examination though she is not been able to respond to review of system questions up to this point anyways. - Vitals Vitals: Last Vital Signs Temp 37.1 C 01/23/20 19:35 Pulse 78 01/23/20 20:00 Resp 18 01/23/20 19:35 BP 132/54 01/23/20 19:35 Pulse Ox 96 01/23/20 14:35 - Abnormal Lab Findings Abnormal Lab Findings: Abnormal Lab Results 01/23/20 01/23/20 Range/Units 06:31 06:31 WBC 14.6 H (4.0-10.5) K/mm3 RBC 3.28 L (4.2-5.4) M/mm3 Hgb 7.5 L* (12.5-16.0) gm/dL Hct 25.4 L (37.0-47.0) % MCV 77.4 L (78-100) fl MCH 22.9 L (27-31) pg MCHC 29.5 L (32-36) g/dl RDW 22.2 H (11.5-14.0) % Immature Gran % (Auto) 1.40 H (0.001-0.429) % Immature Gran # (Auto) 0.21 H (0.000-0.0310) K/mm3 Neutrophils % 82.9 H (42-75.0) % Lymphocytes % 8.6 L (20-51) % Neutrophils # 12.1 H (1.3-6.0) K/mm3 Lymphocytes # 1.25 L (1.5-3.5) k/mm3 Sodium 146 H (132-142) mmol/L Plasma Sodium 148 H (130-142) mmol/L Chloride 111 H (97-106) mmol/L Carbon Dioxide 22.0 L (24-32.6) mmol/L Anion Gap 17.0 H (6.8-13.8) mmol/L BUN 64 H (3-23) mg/dL Creatinine 2.99 H (0.4-1.4) mg/dL Est GFR (Non-Af Amer) 16 L (60-130) mL/min Random Glucose 226 H D (70-110) mg/dL Alkaline Phosphatase 223 H (50-170) U/L Total Protein 5.8 L (6.2-8.2) gm/dL Albumin 1.8 L (3.4-5.0) gm/dl - Exam Constitutional: Present: Other - Resting comfortably Respiratory: Present: lungs clear, decreased breath sounds. Absent: crackles, wheezing Cardiovascular/Chest: Present: regular rate, rhythm, no murmur Cauti Physician Documentation - Urinary Catheter Management Urethral (Contreras) Date of Insertion: 01/21/20 Time of Insertion: 17:39 Assessment/Plan Plan Narrative: Nessa is day 8 of IV antibiotics. 96 hours of Zosyn given. Leukocytosis improved. We will continue to monitor. Hemoglobin back up to 7.5, stable. Kidney function unchanged. We will no longer monitor BMP for kidney function. Hospice talking well, plan is for her to return back to her care center once her pneumonia has cleared which should be the next day or 2. Will repeat CBC in the morning but no other labs to be drawn. She remains afebrile and her vital signs been stable. No clenching of teeth or arm jerking today. EEG did show some seizure-like activity and has recommended that her Keppra be increased to 1500 mg twice daily but she appears comfortable and patients family wishes for her to go on hospice. We will go ahead and increase Keppra to 1500 mg twice daily for patient comfort only. 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 Repeat blood culture negative for growth at 48 hours. Urine culture negative for infection. vital signs been stable, she is been afebrile. Patient satting appropriately and is not tachypneic. We will continue to monitor her pneumonia but appears from a clinical standpoint to be improving. Patient has history of A. fib, CVA, type 2 diabetes, hyperlipidemia, hypertension. Nurse to call with questions or concerns, continue above-stated treatment plan. Likely discharged home to care center in the next 24 to 48 hours. - Problems/Diagnosis (1) Multifocal pneumonia Problem: Acute (2) Acute renal failure Problem: Acute (3) Seizure disorder Problem: Suspected (4) Bilateral lower extremity edema Problem: Acute (5) Hypertension Problem: Chronic (6) Hyperlipemia Problem: Chronic Qualifiers: Hyperlipidemia type: mixed hyperlipidemia Qualified Code(s): E78.2 - Mixed hyperlipidemia (7) Diabetes mellitus type 2 in obese Problem: Chronic (8) CVA (cerebral vascular accident) Problem: Chronic Qualifiers: CVA mechanism: unspecified Qualified Code(s): I63.9 - Cerebral infarction, unspecified (9) Acute UTI (urinary tract infection) Problem: Resolved (10) Left-sided weakness Problem: Acute (11) Leukocytosis Problem: Acute Qualifiers: Leukocytosis type: leukemoid reaction Qualified Code(s): D72.823 - Leukemoid reaction (12) HTN (hypertension) Problem: Chronic Qualifiers: (13) HLD (hyperlipidemia) Problem: Chronic Qualifiers: (14) CVA (cerebral vascular accident) Problem: Chronic Qualifiers: CVA mechanism: unspecified Qualified Code(s): I63.9 - Cerebral infarction, unspecified
[2020-01-24] MEDS: PIPERACILLIN SODIUM/TAZOBACTAM 3.375 GM in DEXTROSE 5 % IN WATER 100 ML IV SCH ×2 (03:22)
[2020-01-24] MEDS: NORMAL SALINE 1,000 ML IV PRN ×2 (03:44→10:47)
[2020-01-24] MEDS: ASPIRIN 81 MG TABLET.DR PO SCH (08:29)
[2020-01-24] MEDS: SIMETHICONE 80 MG TAB.CHEW PO SCH ×2 (08:29→12:45)
[2020-01-24] MEDS: OXYBUTYNIN CHLORIDE 5 MG TABLET PO SCH (08:29)
[2020-01-24] MEDS: CALCIUM CARBONATE/VITAMIN D3 1 TAB TABLET PO SCH (08:29)
[2020-01-24] MEDS: POTASSIUM CHLORIDE 10 MEQ TABLET.SA PO SCH (08:29)
[2020-01-24] MEDS: FUROSEMIDE 80 MG TABLET PO SCH (08:29)
[2020-01-24] MEDS: POLYETHYLENE GLYCOL 3350 17 GM PACKET PO SCH (08:30)
[2020-01-24] MEDS: ACETAMINOPHEN 500 MG TABLET PO SCH ×2 (08:30→12:46)
[2020-01-24] MEDS: FAMOTIDINE 20 MG TABLET PO SCH (08:31)
[2020-01-24] MEDS: SENNOSIDES 8.6 MG TABLET PO SCH (08:31)
[2020-01-24] MEDS: INSULIN GLARGINE,HUM.REC.ANLOG 100 UNITS/ML VIAL SC SCH (08:32)
[2020-01-24] MEDS: INSULIN LISPRO 100 UNITS/ML VIAL SC SCH ×2 (08:33→12:47)
[2020-01-24 08:35] LABS: Hematocrit 26.1 % (37.0-47.0); Mean Cell Volume 77.2 fl (78-100); Mean Corpuscular Hemoglobin 22.5 pg (27-31); Mean Corpuscular Hgb Conc 29.1 g/dl (32-36); Mean Platelet Volume 10.4 fl (8-12.5); Neutrophil # 9.4 K/mm3 (1.3-6.0); Neutrophil % 76.3 % (42-75.0); Platelet Count 281 K/mm3 (150-450); Red Blood Count 3.38 M/mm3 (4.2-5.4); Red Cell Distribution Width 22.6 % (11.5-14.0); White Blood Count 12.3 K/mm3 (4.0-10.5)
[2020-01-24 08:41] LABS: Hemoglobin 7.6 gm/dL (12.5-16.0)
[2020-01-24 10:20] VITALS: BP 154/94
--- NOTE | 2020-01-24 11:56 | DS ---
(1) Multifocal pneumonia Problem: Resolved (2) Acute renal failure Problem: Acute (3) Seizure disorder Problem: Acute (4) Bilateral lower extremity edema Problem: Chronic (5) Hypertension Problem: Chronic (6) Hyperlipemia Problem: Chronic Qualifiers: Hyperlipidemia type: mixed hyperlipidemia Qualified Code(s): E78.2 - Mixed hyperlipidemia (7) Diabetes mellitus type 2 in obese Problem: Chronic (8) CVA (cerebral vascular accident) Problem: Chronic Qualifiers: CVA mechanism: unspecified Qualified Code(s): I63.9 - Cerebral infarction, unspecified (9) Acute UTI (urinary tract infection) Problem: Ruled-out (10) Left-sided weakness Problem: Chronic (11) Leukocytosis Problem: Acute Qualifiers: Leukocytosis type: leukemoid reaction Qualified Code(s): D72.823 - Leukemoid reaction (12) HTN (hypertension) Problem: Chronic Qualifiers: (13) HLD (hyperlipidemia) Problem: Chronic Qualifiers: (14) CVA (cerebral vascular accident) Problem: Chronic Qualifiers: CVA mechanism: unspecified Qualified Code(s): I63.9 - Cerebral infarction, unspecified Date of Discharge:: 01/24/20 Hospital Course: Dawna is a pleasant 79-year-old female who was admitted to the hospital for multifocal pneumonia, new onset seizure disorder, acute renal failure who has been here for the last 9 days receiving IV antibiotics. White blood count as high as 22 upon admission was down to 12.3 upon discharge. Patient initially on cefepime but was switched to Zosyn due to her unresponsiveness to the previous antibiotic. Patient was afebrile while here, her vital signs have been stable. She was also evaluated for possible seizure disorder due to spontaneous contracture of her right upper extremity and clenching of her teeth, EEG consistent with seizure activity. She was on Keppra 500 twice daily. Repeat EEG still showed some spontaneous seizure activity and so her Keppra was increased to 750 twice daily. She will be discharged on this medication. Concern for UTI initially but this was ruled out after urine culture came back negative. Patient's cognition has declined day which is likely due to Multi-infarct dementia as well as encephalomalacic changes. Due to cognitive deficits, worsening renal function, seizure activity, and chronic anemia patient's family decided it would be best for her to go back to the care center on hospice. They did not want her undergoing dialysis or have him to have chronic blood transfusions. She will be discharged back to the care center with minimal medications, only those necessary for comfort measures as well as Keppra and her long-acting insulin. She will she will be discharged with Ativan every 3 hours as needed, stool softener daily, and Tylenol as needed. Procedures Performed: none Results and Findings: Lab Pending Results 01/16/20 13:19: WBC 8.4, RBC 4.24, Hgb 9.8 L, Hct 33.5 L, MCV 79.0, MCH 23.1 L, MCHC 29.3 L, RDW 20.9 H, Plt Count 219, MPV 10.6, Neutrophils % (Manual) 80 H, Band Neuts % (Manual) 2, Lymphocytes % (Manual) 9 L, Monocytes % (Manual) 9, Neutrophils # (Manual) 6.7 H, Lymphocytes # (Manual) 0.8 L, Monocytes # (Manual) 0.8, Platelet Estimate Normal, RBC Morphology Normal 01/16/20 13:19: Sodium 139, Plasma Sodium 139, Potassium 5.0 H, Chloride 101, Carbon Dioxide 29.5, Anion Gap 13.5, BUN 40 H, Creatinine 1.28, Est GFR (Non-Af Amer) 43 L, BUN/Creatinine Ratio 31.3 H, Random Glucose 123 H, Calcium 9.6, Calcium Adj for Albumin 9.9, Total Bilirubin 0.7, AST 49 H, ALT 23, Alkaline Phosphatase 99, C-Reactive Prot, Quant 16.0 H, Total Protein 7.4, Albumin 3.2 L 01/16/20 13:19: Lactic Acid, Venous 2.7 H* 01/16/20 13:43: Urine Color Yellow, Urine Appearance Slightly cloudy, Urine pH 5.5, Ur Specific [place] 1.015, Urine Protein Negative, Urine Glucose (UA) Negative, Urine Ketones Negative, Urine Blood 25 H, Urine Nitrate Negative, Urine Bilirubin Negative, Urine Urobilinogen Normal, Ur Leukocyte Esterase Negative, Urine RBC 5-10 H, Urine WBC 10-25 H, Ur Epithelial Cells None seen, Urine Bacteria Trace, Urine Culture Comments No culture indicated 01/16/20 15:54: SARS-CoV-2 (PCR) Not detected 01/16/20 17:20: Lactic Acid, Venous 1.9 01/17/20 06:00: Creatine Kinase 271 H 01/17/20 06:28: WBC 22.0 H D, RBC 3.76 L, Hgb 8.7 L, Hct 29.3 L, MCV 77.9 L, MCH 23.1 L, MCHC 29.7 L, RDW 21.2 H, Plt Count 176, MPV 9.7, Immature Gran % (Auto) 2.10 H, Immature Gran # (Auto) 0.47 H, Neutrophils % 86.0 H, Lymphocytes % 5.9 L, Monocytes % 5.7, Eosinophils % 0.0, Basophils % 0.3, Nucleated RBC % 0.0, Neutrophils # 18.9 H, Lymphocytes # 1.30 L, Monocytes # 1.3 H, Eosinophils # 0.0, Absolute Basophils 0.1 01/17/20 06:28: Sodium 139, Plasma Sodium 140, Potassium 4.1, Chloride 101, Carbon Dioxide 27.8, Anion Gap 14.3 H, BUN 45 H, Creatinine 1.60 H, Est GFR (Non-Af Amer) 33 L D, BUN/Creatinine Ratio 28.1 H, Random Glucose 135 H, Calcium 9.4, Calcium Adj for Albumin 10.0, Total Bilirubin 0.7, AST 27, ALT 20, Alkaline Phosphatase 96, Total Protein 7.2, Albumin 2.8 L 01/18/20 07:25: WBC 21.2 H, RBC 3.65 L, Hgb 8.4 L, Hct 28.4 L, MCV 77.8 L, MCH 23.0 L, MCHC 29.6 L, RDW 21.5 H, Plt Count 165, MPV 10.4, Immature Gran % (Auto) 2.00 H, Immature Gran # (Auto) 0.42 H, Neutrophils % 87.6 H, Lymphocytes % 5.3 L, Monocytes % 4.9, Eosinophils % 0.0, Basophils % 0.2, Nucleated RBC % 0.0, Neutrophils # 18.6 H, Lymphocytes # 1.13 L, Monocytes # 1.0, Eosinophils # 0.0, Absolute Basophils 0.0 01/18/20 07:25: Sodium 139, Plasma Sodium 141, Potassium 4.1, Chloride 102, Carbon Dioxide 26.8, Anion Gap 14.3 H, BUN 62 H, Creatinine 2.31 H D, Est GFR (Non-Af Amer) 22 L D, BUN/Creatinine Ratio 26.8 H, Random Glucose 202 H D, Calcium 9.3 01/19/20 06:17: WBC 19.6 H, RBC 3.69 L, Hgb 8.5 L, Hct 28.6 L, MCV 77.5 L, MCH 23.0 L, MCHC 29.7 L, RDW 21.3 H, Plt Count 157, MPV 10.8, Immature Gran % (Auto) 1.90 H, Immature Gran # (Auto) 0.37 H, Neutrophils % 86.0 H, Lymphocytes % 5.9 L, Monocytes % 5.8, Eosinophils % 0.2, Basophils % 0.2, Nucleated RBC % 0.0, Neutrophils # 16.9 H, Lymphocytes # 1.15 L, Monocytes # 1.1 H, Eosinophils # 0.0, Absolute Basophils 0.0 01/19/20 06:17: Sodium 140, Plasma Sodium 141, Potassium 4.5, Chloride 105, Carbon Dioxide 23.7 L, Anion Gap 15.8 H, BUN 67 H, Creatinine 2.46 H, Est GFR (Non-Af Amer) 20 L, BUN/Creatinine Ratio 27.2 H, Random Glucose 179 H, Calcium 9.1 01/20/20 07:37: Creatine Kinase 114 01/20/20 07:39: WBC 16.9 H, RBC 3.46 L, Hgb 7.9 L*, Hct 27.6 L, MCV 79.8, MCH 22.8 L, MCHC 28.6 L, RDW 21.6 H, Plt Count 154, MPV 10.5, Immature Gran % (Auto) 0.50 H, Immature Gran # (Auto) 0.09 H, Neutrophils % 85.8 H, Lymphocytes % 6.2 L, Monocytes % 6.4, Eosinophils % 0.8, Basophils % 0.3, Nucleated RBC % 0.0, Neutrophils # 14.5 H, Lymphocytes # 1.05 L, Monocytes # 1.1 H, Eosinophils # 0.1, Absolute Basophils 0.1 01/20/20 07:39: Sodium 137, Plasma Sodium 138, Potassium 4.5, Chloride 105, Carbon Dioxide 21.7 L, Anion Gap 14.8 H, BUN 73 H, Creatinine 2.76 H, Est GFR (Non-Af Amer) 18 L, BUN/Creatinine Ratio 26.4 H, Random Glucose 186 H, Calcium 9.0, Calcium Adj for Albumin 10.1, Total Bilirubin 0.7, AST 36, ALT 20, Alkaline Phosphatase 177 H, Total Protein 7.0, Albumin 2.2 L 01/21/20 06:45: WBC 14.8 H, RBC 3.39 L, Hgb 7.8 L*, Hct 26.7 L, MCV 78.8, MCH 23.0 L, MCHC 29.2 L, RDW 21.8 H, Plt Count 170, MPV 11.0, Immature Gran % (Auto) 0.90 H, Immature Gran # (Auto) 0.13 H, Neutrophils % 83.9 H, Lymphocytes % 7.3 L, Monocytes % 6.3, Eosinophils % 1.3, Basophils % 0.3, Nucleated RBC % 0.0, Neutrophils # 12.5 H, Lymphocytes # 1.09 L, Monocytes # 0.9, Eosinophils # 0.2, Absolute Basophils 0.0 01/21/20 06:45: Sodium 140, Plasma Sodium 140, Potassium 4.5, Chloride 107 H, Ca rbon Dioxide 23.1 L, Anion Gap 14.4 H, BUN 79 H, Creatinine 3.01 H, Est GFR (Non-Af Amer) 16 L, BUN/Creatinine Ratio 26.2 H, Random Glucose 101 D, Calcium 9.0, Calcium Adj for Albumin 10.3 H, Total Bilirubin 0.6, AST 46, ALT 22, Alkaline Phosphatase 213 H, Total Protein 6.9, Albumin 2.0 L 01/22/20 06:20: WBC 15.2 H, RBC 3.21 L, Hgb 7.3 L*, Hct 24.7 L, MCV 76.9 L, MCH 22.7 L, MCHC 29.6 L, RDW 21.9 H, Plt Count 194, MPV 10.6, Immature Gran % (Auto) 1.90 H, Immature Gran # (Auto) 0.29 H, Neutrophils % 84.6 H, Lymphocytes % 6.6 L, Monocytes % 5.9, Eosinophils % 0.8, Basophils % 0.2, Nucleated RBC % 0.0, Neutrophils # 12.8 H, Lymphocytes # 1.00 L, Monocytes # 0.9, Eosinophils # 0.1, Absolute Basophils 0.0 01/22/20 06:20: Sodium 145 H, Plasma Sodium 146 H, Potassium 4.1, Chloride 110 H, Carbon Dioxide 21.2 L, Anion Gap 17.9 H, BUN 68 H, Creatinine 2.93 H, Est GFR (Non-Af Amer) 16 L, BUN/Creatinine Ratio 23.2 H, Random Glucose 162 H D, Calcium 8.8, Calcium Adj for Albumin 10.3 H, Total Bilirubin 0.6, AST 38, ALT 23, Alkaline Phosphatase 226 H, Total Protein 6.5, Albumin 1.7 L 01/23/20 06:31: WBC 14.6 H, RBC 3.28 L, Hgb 7.5 L*, Hct 25.4 L, MCV 77.4 L, MCH 22.9 L, MCHC 29.5 L, RDW 22.2 H, Plt Count 226, MPV 10.7, Immature Gran % (Auto) 1.40 H, Immature Gran # (Auto) 0.21 H, Neutrophils % 82.9 H, Lymphocytes % 8.6 L, Monocytes % 4.7, Eosinophils % 2.1, Basophils % 0.3, Nucleated RBC % 0.0, Neutrophils # 12.1 H, Lymphocytes # 1.25 L, Monocytes # 0.7, Eosinophils # 0.3, Absolute Basophils 0.1 01/23/20 06:31: Sodium 146 H, Plasma Sodium 148 H, Potassium 4.0, Chloride 111 H, Carbon Dioxide 22.0 L, Anion Gap 17.0 H, BUN 64 H, Creatinine 2.99 H, Est GFR (Non-Af Amer) 16 L, BUN/Creatinine Ratio 21.4, Random Glucose 226 H D, Calcium 8.5, Calcium Adj for Albumin 9.9, Total Bilirubin 0.6, AST 28, ALT 22, Alkaline Phosphatase 223 H, Total Protein 5.8 L, Albumin 1.8 L 01/24/20 08:15: WBC 12.3 H, RBC 3.38 L, Hgb 7.6 L*, Hct 26.1 L, MCV 77.2 L, MCH 22.5 L, MCHC 29.1 L, RDW 22.6 H, Plt Count 281, MPV 10.4, Immature Gran % (Auto) 1.50 H, Immature Gran # (Auto) 0.18 H, Neutrophils % 76.3 H, Lymphocytes % 11.5 L, Monocytes % 5.7, Eosinophils % 4.6 H, Basophils % 0.4, Nucleated RBC % 0.0, Neutrophils # 9.4 H, Lymphocytes # 1.41 L, Monocytes # 0.7, Eosinophils # 0.6, Absolute Basophils 0.1 Discharge Location: [facility] Disposition: Hospice Home Home Health Agency: [facility] Hospice Condition: Critical Discharge Activity: Activity as tolerated Discharge Diet: General/regular food Prescriptions (Any new or edited meds): LORazepam [Ativan] 1 mg PO Q3H PRN #30 tab PRN Reason: Anxiety Transmission Status: Received by [facility] levETIRAcetam [Keppra] 750 mg PO BID #60 tab Transmission Status: Pending to [facility] Complete Home Medications List: Complete Home Medication List: Sennosides [Senokot] 2 tab PO DAILY 08/11/17 simethicone 80 mg chewable tablet 80 mg PO TID 07/11/18 insulin detemir U-100 100 unit/mL subcutaneous solution 21 unit SUBCUT QAM ml 12/29/19 Insulin Detemir [Levemir] 18 units SC HS 01/16/20 Acetaminophen [Tylenol] 650 mg PO Q4H PRN tab 01/24/20 Baclofen 5 mg PO HS tab 01/24/20 LORazepam [Ativan] 1 mg PO Q3H PRN #30 tab 01/24/20 levETIRAcetam [Keppra] 750 mg IV Q12H vial 01/24/20 levETIRAcetam [Keppra] 750 mg PO BID #60 tab 01/24/20 Forms: Patient Portal Registration
== END 2020-01-24 14:34 | disposition hospice, home (50) | DRG 194 ==
LOC: ER 12:57 → MS 17:33
PROVIDERS: ADMIT Internal Medicine; ATTEND Internal Medicine